=== PATIENT | male | born 1950 | race Caucasian/White ===

== ENCOUNTER 2018-07-14 16:41 | Inpatient (IN) | payer MEDICARE ==
[2018-07-14] MEDS ORDERED: SODIUM CHLORIDE 0.9% 500 ML 500 ML IV STA (16:44)
[2018-07-14] MEDS ORDERED: IPRATROPIUM 0.5 MG/2.5 ML NEBU INHALATION STA (16:44)
[2018-07-14] MEDS ORDERED: methylPREDNISolone SOD SUCCI 125 MG/2 ML VIAL IV STA (16:44)
[2018-07-14] MEDS ORDERED: ALBUTEROL NEBULIZED 2.5 MG/3 ML INHALATION STA ×2 (16:44→17:57)
--- NOTE | 2018-07-14 16:56 | ED ---
General Adult HPI - General Stated complaint: SOB Time Seen by Provider: 07/14/18 16:44 Source: patient, EMS, RN notes reviewed, old records reviewed - History of Present Illness Initial comments: 68-year-old male history of COPD presenting and moderate to severe respiratory distress. History is somewhat limited secondary to patient's respiratory distress. Patient was brought in by EMS with several hours of increasing dyspne a and cough. Patient's symptoms initially began while doing some cleaning around the house, he was exposed to unknown chemical, this seemed to trigger his symptoms. There was no preceding URI symptoms, no fever or chills. Patient does have history of COPD, not on home oxygen. Denies chest pain. Denies fever. Denies abdominal pain or nausea vomiting. - Related Data Home Medications Medication Instructions Recorded Confirmed Inhaler (Unknown) 0 puff INHALATION DIRECTED 07/14/18 07/14/18 Allergies Allergy/AdvReac Type Severity Reaction Status Date / Time No Known Allergies Allergy Verified 07/14/18 17:15 Review of Systems ROS Statement: Those systems with pertinent positive or pertinent negative responses have been documented in the HPI. ROS Other: All systems not noted in ROS Statement are negative. General Exam General appearance: in distress Head exam: Present: atraumatic, normocephalic Eye exam: Present: normal appearance, PERRL ENT exam: Present: normal exam Neck exam: Present: normal inspection. Absent: tenderness, meningismus Respiratory exam: Present: respiratory distress, wheezes, rhonchi, accessory muscle use, decreased breath sounds. Absent: prolonged expiratory Cardiovascular Exam: Present: normal rhythm, tachycardia GI/Abdominal exam: Present: soft. Absent: distended, tenderness, guarding Extremities exam: Present: normal inspection, normal capillary refill. Absent: pedal edema Neurological exam: Present: alert, oriented X3, CN II-XII intact. Absent: motor sensory deficit Skin exam: Present: warm, dry, intact. Absent: cyanosis, diaphoretic Course Vital Signs 07/14/18 07/14/18 07/14/18 16:45 17:00 17:12 Temperature 97 F L Pulse Rate 126 H 123 H 126 H Respiratory 48 H 41 H 42 H Rate Blood Pressure 163/109 144/97 136/98 O2 Sat by Pulse 98 100 100 Oximetry 03/31/19 03/31/19 03/31/19 17:29 19:11 19:12 Temperature Pulse Rate 134 H 133 H 133 H Respiratory 28 H Rate Blood Pressure 112/80 O2 Sat by Pulse 98 Oximetry 07/14/18 07/14/18 07/14/18 19:17 19:39 20:35 Temperature 98.6 F 97.7 F Pulse Rate 141 H 141 H 132 H Respiratory 34 H 32 H Rate Blood Pressure 110/71 117/77 O2 Sat by Pulse 99 98 Oximetry EKG Findings - EKG Comments: EKG Findings:: EKG: Sinus tachycardia, left ventricular hypertrophy, no ST segment elevation. Rate of 133, AK interval 128, QRS duration 92, QTC 520, QTC 350 Medical Decision Making - Medical Decision Making 68-year-old male history COPD, current smoker presenting with severe respiratory distress. Patient had exposure to fumes from [employer]. Initiated on albuterol, Atrovent, IV steroids, magnesium, placed on BiPAP. Chest x-ray obtained, negative for pneumothorax, no focal pneumonia. Patient has leukocytosis 18.4, otherwise laboratory studies are unremarkable, influenza negative. He was initiated on antibiotics secondary to respiratory distress and elevated white blood cell count. Patient remains tachycardic, oxygenation normal on BiPAP. Arterial blood gas is performed, patient has pH of 7.33, CO2 of 37, normal oxygenation. CT angiography is performed given the persistent tachycardia and tachypnea, this is negative for PE. Case discussed with primary food science technician Dr. Beckett, will place patient in ICU for close monitoring. Case discussed with the admitting physician. - Lab Data Result diagrams: 07/14/18 16:49 07/14/18 16:49 Lab Results 07/14/18 07/14/18 07/14/18 Range/Units 16:49 16:49 16:49 WBC 18.4 H (3.8-10.6) k/uL RBC 4.51 (4.30-5.90) m/uL Hgb 14.9 (13.0-17.5) gm/dL Hct 45.6 (39.0-53.0) % MCV 101.0 H (80.0-100.0) fL MCH 33.1 (25.0-35.0) pg MCHC 32.7 (31.0-37.0) g/dL RDW 13.0 (11.5-15.5) % Plt Count 335 (150-450) k/uL Neutrophils % 81 % Lymphocytes % 10 % Monocytes % 7 % Eosinophils % 1 % Basophils % 0 % Neutrophils # 14.9 H (1.3-7.7) k/uL Lymphocytes # 1.9 (1.0-4.8) k/uL Monocytes # 1.2 H (0-1.0) k/uL Eosinophils # 0.2 (0-0.7) k/uL Basophils # 0.1 (0-0.2) k/uL PT (9.0-12.0) sec INR (<1.2) APTT (22.0-30.0) sec D-Dimer (<0.60) mg/L FEU Sample Site ABG pH (7.35-7.45) ABG pCO2 (35-45) mmHg ABG pO2 (83-108) mmHg ABG HCO3 (21-25) mmol/L ABG Total CO2 (19-24) mmol/L ABG O2 Saturation (94-97) % ABG Base Excess mmol/L Ang Test FiO2 % Sodium 137 (137-145) mmol/L Potassium 4.7 (3.5-5.1) mmol/L Chloride 107 (98-107) mmol/L Carbon Dioxide 21 L (22-30) mmol/L Anion Gap 9 mmol/L BUN 15 (9-20) mg/dL Creatinine 0.75 (0.66-1.25) mg/dL Est GFR (CKD-EPI)AfAm >90 (>60 ml/min/1.73 sqM) Est GFR (CKD-EPI)NonAf >90 (>60 ml/min/1.73 sqM) Glucose 160 H (74-99) mg/dL Plasma Lactic Acid Ivan (0.7-2.0) mmol/L Calcium 8.6 (8.4-10.2) mg/dL Magnesium 2.0 (1.6-2.3) mg/dL Total Bilirubin 0.3 (0.2-1.3) mg/dL AST 26 (17-59) U/L ALT 23 (21-72) U/L Alkaline Phosphatase 92 (38-126) U/L Troponin I (0.000-0.034) ng/mL NT-Pro-B Natriuret Pep 344 pg/mL Total Protein 7.0 (6.3-8.2) g/dL Albumin 4.3 (3.5-5.0) g/dL Influenza Type A RNA (Not Detectd) Influenza Type B (PCR) (Not Detectd) 07/14/18 07/14/18 07/14/18 Range/Units 16:49 16:49 16:49 WBC (3.8-10.6) k/uL RBC (4.30-5.90) m/uL Hgb (13.0-17.5) gm/dL Hct (39.0-53.0) % MCV (80.0-100.0) fL MCH (25.0-35.0) pg MCHC (31.0-37.0) g/dL RDW (11.5-15.5) % Plt Count (150-450) k/uL Neutrophils % % Lymphocytes % % Monocytes % % Eosinophils % % Basophils % % Neutrophils # (1.3-7.7) k/uL Lymphocytes # (1.0-4.8) k/uL Monocytes # (0-1.0) k/uL Eosinophils # (0-0.7) k/uL Basophils # (0-0.2) k/uL PT 10.0 (9.0-12.0) sec INR 0.9 (<1.2) APTT 22.5 (22.0-30.0) sec D-Dimer (<0.60) mg/L FEU Sample Site ABG pH (7.35-7.45) ABG pCO2 (35-45) mmHg ABG pO2 (83-108) mmHg ABG HCO3 (21-25) mmol/L ABG Total CO2 (19-24) mmol/L ABG O2 Saturation (94-97) % ABG Base Excess mmol/L Ang Test FiO2 % Sodium (137-145) mmol/L Potassium (3.5-5.1) mmol/L Chloride (98-107) mmol/L Carbon Dioxide (22-30) mmol/L Anion Gap mmol/L BUN (9-20) mg/dL Creatinine (0.66-1.25) mg/dL Est GFR (CKD-EPI)AfAm (>60 ml/min/1.73 sqM) Est GFR (CKD-EPI)NonAf (>60 ml/min/1.73 sqM) Glucose (74-99) mg/dL Plasma Lactic Acid Ivan 1.2 (0.7-2.0) mmol/L Calcium (8.4-10.2) mg/dL Magnesium (1.6-2.3) mg/dL Total Bilirubin (0.2-1.3) mg/dL AST (17-59) U/L ALT (21-72) U/L Alkaline Phosphatase (38-126) U/L Troponin I <0.012 (0.000-0.034) ng/mL NT-Pro-B Natriuret Pep pg/mL Total Protein (6.3-8.2) g/dL Albumin (3.5-5.0) g/dL Influenza Type A RNA (Not Detectd) Influenza Type B (PCR) (Not Detectd) 07/14/18 07/14/18 07/14/18 Range/Units 16:49 17:00 18:11 WBC (3.8-10.6) k/uL RBC (4.30-5.90) m/uL Hgb (13.0-17.5) gm/dL Hct (39.0-53.0) % MCV (80.0-100.0) fL MCH (25.0-35.0) pg MCHC (31.0-37.0) g/dL RDW (11.5-15.5) % Plt Count (150-450) k/uL Neutrophils % % Lymphocytes % % Monocytes % % Eosinophils % % Basophils % % Neutrophils # (1.3-7.7) k/uL Lymphocytes # (1.0-4.8) k/uL Monocytes # (0-1.0) k/uL Eosinophils # (0-0.7) k/uL Basophils # (0-0.2) k/uL PT (9.0-12.0) sec INR (<1.2) APTT (22.0-30.0) sec D-Dimer 0.71 H (<0.60) mg/L FEU Sample Site rrad ABG pH 7.34 L (7.35-7.45) ABG pCO2 37 (35-45) mmHg ABG pO2 179 H (83-108) mmHg ABG HCO3 20 L (21-25) mmol/L ABG Total CO2 21 (19-24) mmol/L ABG O2 Saturation 99.3 H (94-97) % ABG Base Excess -5.9 mmol/L Ang Test Yes FiO2 40 % Sodium (137-145) mmol/L Potassium (3.5-5.1) mmol/L Chloride (98-107) mmol/L Carbon Dioxide (22-30) mmol/L Anion Gap mmol/L BUN (9-20) mg/dL Creatinine (0.66-1.25) mg/dL Est GFR (CKD-EPI)AfAm (>60 ml/min/1.73 sqM) Est GFR (CKD-EPI)NonAf (>60 ml/min/1.73 sqM) Glucose (74-99) mg/dL Plasma Lactic Acid Ivan (0.7-2.0) mmol/L Calcium (8.4-10.2) mg/dL Magnesium (1.6-2.3) mg/dL Total Bilirubin (0.2-1.3) mg/dL AST (17-59) U/L ALT (21-72) U/L Alkaline Phosphatase (38-126) U/L Troponin I (0.000-0.034) ng/mL NT-Pro-B Natriuret Pep pg/mL Total Protein (6.3-8.2) g/dL Albumin (3.5-5.0) g/dL Influenza Type A RNA Not Detected (Not Detectd) Influenza Type B (PCR) Not Detected (Not Detectd) Critical Care Time Critical Care Time: Yes Total Critical Care Time: 45 Disposition Clinical Impression: Acute exacerbation of chronic obstructive airways disease Disposition: ADMITTED IP TO THIS [facility] Condition: Stable Is patient prescribed a controlled substance at d/c from ED?: No Referrals: None,Stated [REFERRING] - 1-2 days Decision to Admit Reason: Admit from EC Decision Date: 07/14/18 Decision Time: 21:13
[2018-07-14] MEDS: MAGNESIUM SULFATE-D5W PMX 1 GM in DEXTROSE/WATER 1 100ML.BAG IVPB SCH ×2 (16:57→19:07)
--- NOTE | 2018-07-14 16:57 | XR ---
EXAMINATION TYPE: XR chest 1V portable DATE OF EXAM: 07/14/2018 COMPARISON: None HISTORY: Cough TECHNIQUE: Single frontal view of the chest is obtained. FINDINGS: There is mild coarsening of the pulmonary interstitial markings. There are old right-sided rib fractures. Heart size is normal. Thoracic aorta is atheromatous. There are chest leads. IMPRESSION: Mild pulmonary fibrosis. No acute lung disease. Normal heart.
[2018-07-14 17:05] LABS: Basophils # (A) 0.1 k/uL (0-0.2); Basophils % (A) 0 %; Eosinophils # (A) 0.2 k/uL (0-0.7); Eosinophils % (A) 1 %; HCT 45.6 % (39.0-53.0); HGB 14.9 gm/dL (13.0-17.5); Lymphocytes # (A) 1.9 k/uL (1.0-4.8); Lymphocytes % (A) 10 %; MCH 33.1 pg (25.0-35.0); MCHC 32.7 g/dL (31.0-37.0); Mean Platelet Volume 6.8; Monocytes # (A) 1.2 k/uL (0-1.0); Monocytes % (A) 7 %; Neutrophils # (A) 14.9 k/uL (1.3-7.7); Neutrophils % (A) 81 %; Platelet Count 335 k/uL (150-450); RBC 4.51 m/uL (4.30-5.90); WBC 18.4 k/uL (3.8-10.6)
[2018-07-14] MEDS ORDERED: AZITHROMYCIN 500 MG in SODIUM CHLORIDE 0.9% 250 ML IVPB STA (17:12)
[2018-07-14] MEDS ORDERED: cefTRIAXone IN SWFI 1,000 MG/10 ML SYRINGE IVP STA (17:12)
[2018-07-14 17:13] LABS: INR 0.9 (<1.2); Partial Thromboplastin Time 22.5 sec (22.0-30.0)
[2018-07-14 17:16] LABS: ALT 23 U/L (21-72); AST 26 U/L (17-59); Albumin 4.3 g/dL (3.5-5.0); Alkaline Phosphatase 92 U/L (38-126); Anion Gap 9 mmol/L; Blood Urea Nitrogen 15 mg/dL (9-20); Calcium 8.6 mg/dL (8.4-10.2); Carbon Dioxide 21 mmol/L (22-30); Chloride 107 mmol/L (98-107); Glucose 160 mg/dL (74-99); Potassium 4.7 mmol/L (3.5-5.1); Sodium 137 mmol/L (137-145); Total Bilirubin 0.3 mg/dL (0.2-1.3)
[2018-07-14] MEDS ORDERED: SODIUM CHLORIDE 0.9% 1,000 ML IV ONE (17:56)
[2018-07-14] MEDS ORDERED: LORazepam 2 MG/ML INJ IV STA (17:56)
[2018-07-14 18:20] LABS: ABG Base Excess -5.9 mmol/L; ABG HCO3 20 mmol/L (21-25); ABG Oxygen Saturation 99.3 % (94-97); ABG PCO2 37 mmHg (35-45); ABG PH 7.34 (7.35-7.45); ABG PO2 179 mmHg (83-108); ABG TCO2 21 mmol/L (19-24)
[2018-07-14] MEDS: SODIUM CHLORIDE 0.9% 1,000 ML IV SCH (19:00)
[2018-07-14] MEDS ORDERED: HEPARIN SODIUM,PORCINE 5,000 UNIT/ML 1 ML VIAL IV PRN (20:07)
[2018-07-14] MEDS ORDERED: HEPARIN SODIUM,PORCINE 10,000 UNIT/ML 1 ML VIAL IV ONE (20:07)
[2018-07-14] MEDS ORDERED: HEPARIN SOD,PORK IN 0.45% NACL 25,000 UNIT in 0.45% NACL 1 250ML.BAG IV SCH (20:15)
--- NOTE | 2018-07-14 20:52 | CT ---
EXAMINATION TYPE: CT angio chest DATE OF EXAM: 07/14/2018 8:42 PM COMPARISON: None HISTORY: Short of breath CT DLP: 268.5 mGycm Automated exposure control for dose reduction was used. CONTRAST: CTA scan of the thorax is performed with IV Contrast, patient injected with 100 mL of Isovue 370, pul monary embolism protocol. There are 3-D post processed images.. FINDINGS: The lungs are clear of infiltrate. There is no evidence of a pulmonary mass. There is no pleural effu zoraida. Heart size is normal. There is no pericardial effusion. There are small calcified granuloma rig ht lower lobe. Thoracic aorta is atheromatous. There is mild aneurysm of ascending aorta measures 4 cm. There is no evidence of dissection. There is no mediastinal adenopathy. There are no hilar masses. There is normal contrast opacification of the pulmonary arteries. There are no filling defect. The bony thorax is intact. IMPRESSION: NO EVIDENCE OF PULMONARY EMBOLISM. MILD ANEURYSM OF THE ASCENDING AORTA.
[2018-07-14] MEDS ORDERED: ALBUTEROL NEBULIZED 2.5 MG/3 ML INHALATION PRN (21:04)
[2018-07-14] MEDS: IPRATROPIUM-ALBUTEROL 3 ML NEB INHALATION PRN (23:18)
[2018-07-14 23:26] LABS: Glucose,Whole Blood 254 mg/dL (75-99)
[2018-07-14 23:29] VITALS: BMI 22.6
[2018-07-14] MEDS ORDERED: NALOXONE 0.4 MG/ML 1 ML VIAL IV PRN (23:52)
[2018-07-14] MEDS ORDERED: LORazepam 2 MG/ML INJ IV PRN ×3 (23:56)
[2018-07-15] MEDS: methylPREDNISolone SOD SUCCI 125 MG/2 ML VIAL IV SCH ×4 (00:13→18:47)
[2018-07-15] MEDS: INSULIN ASPART (NovoLOG) 100 UNIT/ML VIAL SQ SCH ×5 (00:13→21:07)
[2018-07-15] MEDS: IPRATROPIUM-ALBUTEROL 3 ML NEB INHALATION PRN (03:11)
[2018-07-15 04:50] LABS: Basophils % (A) 0 %; Eosinophils # (A) 0.1 k/uL (0-0.7); Eosinophils % (A) 1 %; HCT 39.2 % (39.0-53.0); HGB 12.7 gm/dL (13.0-17.5); Lymphocytes # (A) 0.3 k/uL (1.0-4.8); Lymphocytes % (A) 4 %; MCH 33.1 pg (25.0-35.0); MCHC 32.4 g/dL (31.0-37.0); MCV 102.2 fL (80.0-100.0); Macrocytosis Slight; Mean Platelet Volume 7.1; Monocytes # (A) 0.3 k/uL (0-1.0); Monocytes % (A) 4 %; Neutrophils # (A) 7.5 k/uL (1.3-7.7); Neutrophils % (A) 91 %; Platelet Count 269 k/uL (150-450); RBC 3.83 m/uL (4.30-5.90); RDW 13.2 % (11.5-15.5); WBC 8.2 k/uL (3.8-10.6)
[2018-07-15 04:58] LABS: Anion Gap 11 mmol/L; Blood Urea Nitrogen 13 mg/dL (9-20); Calcium 8.4 mg/dL (8.4-10.2); Carbon Dioxide 15 mmol/L (22-30); Chloride 110 mmol/L (98-107); Glucose 162 mg/dL (74-99); Magnesium 2.4 mg/dL (1.6-2.3); Potassium 4.7 mmol/L (3.5-5.1); Sodium 136 mmol/L (137-145)
[2018-07-15] MEDS: SODIUM CHLORIDE 0.9% 1,000 ML IV SCH ×2 (06:20→21:07)
--- NOTE | 2018-07-15 07:55 | XR ---
EXAMINATION TYPE: XR chest 1V DATE OF EXAM: 07/15/2018 CLINICAL HISTORY: Difficulty breathing progress study. TECHNIQUE: Single AP semiupright upright view of the chest is obtained. COMPARISON: Chest x-ray and CTA chest from one day earlier FINDINGS: Elevated left hemidiaphragm is redemonstrated. There is background of chronic emphysematou s change without suspicious focal airspace opacity, pleural effusion, or pneumothorax seen bilaterall y. Cardiac silhouette size is stable and within normal limits without sclerotic change in the thoraci c aorta redemonstrated. There are old posterior right rib fractures redemonstrated. IMPRESSION: Overall stable findings, chronic changes without acute pulmonary process
[2018-07-15] MEDS: IPRATROPIUM-ALBUTEROL 3 ML NEB INHALATION SCH ×4 (08:34→20:35)
[2018-07-15] MEDS ORDERED: AZITHROMYCIN 500 MG in SODIUM CHLORIDE 0.9% 250 ML IVPB SCH (09:00)
--- NOTE | 2018-07-15 09:02 | P.CNPUL ---
History of Present Illness Consult date: 07/15/18 Requesting physician: Kamran E Stan Reason for consult: dyspnea Chief complaint: Dyspnea, cough History of present illness: This is 68-year-old patient who follows with the [facility], with past medical history of advanced COPD, recent FEV1 of 51% of predicted consistent with stage III COPD, chronic and ongoing nicotine dependence, history of mitral valve stenosis, who presented to the hospital on 07/14/2018 per EMS with severe respiratory distress. Patient's symptoms began when he was exposed to the fumes from the bleach and Draino. Patient started immediately having shortness of breath, coughing. There were no symptoms of fever, chills, or upper respiratory symptoms. Patient does follow with a appliance worker from Dr. Addy Sy, not on no home oxygen, his only inhaler at home is Spiriva. Denied chest pain, denied any abdominal pain, nausea or vomiting. Chest x-ray showed no acute lung disease, mild coarsening of the pulmonary interstitial markings, old right-sided rib fractures. Labs showed a white blood cell count of 18.4, hemoglobin of 14.9, d-dimer was mildly elevated to 0.71, sodium was 137, potassium is 4.7, chloride was 107, crit CO2 is 21, BUN was 15, creatinine 0.75, plasma lactic acid was 1.2, LFTs were within normal limits, proBNP was 344, troponin was negative 1, influenza was not detected. Blood gas showed pO2 of 179, pCO2 of 37, pH of 7.34 this was done and FiO2 of 40%. CT angios chest was completed and showed no evidence of pulmonary embolism, mild aneurysm of the ascending aorta. EKG showed sinus tachycardia with evidence of left ventricular hypertrophy. he was placed on BiPAP overnight with pressures of 12 and 4, and 30%, he was given Rocephin and Zithromax for empiric antibiotic coverage, nebulized bronchodilators and IV steroids. IV 0.9 normal saline at a rate of 75 ML per hour, patient did receive a liter and half of normal saline in the emergency department. This morning she is resting comfortably in bed, off BiPAP support, 2 L of oxygen per nasal cannula with a pulse ox of 100%. Hemodynamically stable, no fever or chills, eating much easier, requesting to go home today. Review of Systems All systems: negative Constitutional: Denies chills, Denies fever Eyes: denies blurred vision, denies pain Ears, nose, mouth and throat: Denies headache, Denies sore throat Cardiovascular: Denies chest pain, Denies shortness of breath Respiratory: Reports dyspnea, Reports wheezing, Denies cough Gastrointestinal: Denies abdominal pain, Denies diarrhea, Denies nausea, Denies vomiting Musculoskeletal: Denies myalgias Integumentary: Denies pruritus, Denies rash Neurological: Denies numbness, Denies weakness Psychiatric: Denies anxiety, Denies depression Endocrine: Denies fatigue, Denies weight change Past Medical History Additional Past Medical History / Comment(s): COPD, 2 pack per day smoker for 20 years, patient drinks 6 cans of beer daily History of Any Multi-Drug Resistant Organisms: None Reported Past Surgical History: Unable to Obtain Past Psychological History: No Psychological Hx Reported Smoking Status: Current every day smoker Past Alcohol Use History: Daily, Heavy Past Drug Use History: None Reported Medications and Allergies Home Medications Medication Instructions Recorded Confirmed Type Inhaler (Unknown) 0 puff INHALATION DIRECTED 07/14/18 07/14/18 History Allergies Allergy/AdvReac Type Severity Reaction Status Date / Time No Known Allergies Allergy Verified 07/14/18 17:15 Physical Exam Vitals: Vital Signs Temp Pulse Pulse Resp BP BP Pulse Ox 07/15/18 08:45 105 H 07/15/18 08:34 102 H 07/15/18 06:19 100 07/15/18 06:00 98 17 104/74 100 07/15/18 05:30 100 12 117/69 100 07/15/18 05:00 100 19 129/82 100 07/15/18 04:30 107 H 15 96/58 100 07/15/18 04:00 98.4 F 101 H 19 94/58 100 07/15/18 03:30 97 19 98/62 100 07/15/18 03:11 96 07/15/18 03:00 100 18 100/63 100 07/15/18 02:30 103 H 20 104/58 100 07/15/18 02:00 100 16 92/58 100 07/15/18 01:30 105 H 19 94/61 99 07/15/18 01:00 109 H 21 117/67 100 07/15/18 00:30 110 H 27 H 112/74 100 07/15/18 00:00 117 H 108 H 32 H 124/78 100 07/14/18 23:47 84 07/14/18 23:30 98.3 F 111 H 31 H 120/85 100 07/14/18 23:18 111 H 07/14/18 23:10 111 H 30 H 07/14/18 22:35 98.2 F 110 H 23 113/67 100 07/14/18 22:07 98.3 F 111 H 32 H 120/85 07/14/18 21:09 128 H 26 H 112/68 99 07/14/18 20:35 97.7 F 132 H 32 H 117/77 98 07/14/18 19:39 141 H 07/14/18 19:17 98.6 F 141 H 34 H 110/71 99 07/14/18 19:12 133 H 28 H 112/80 98 07/14/18 19:11 133 H 07/14/18 17:29 134 H 07/14/18 17:12 126 H 42 H 136/98 100 07/14/18 17:00 123 H 41 H 144/97 100 07/14/18 16:45 97 F L 126 H 48 H 163/109 98 Intake and Output 07/14/18 07/15/18 07/15/18 22:59 06:59 14:59 Intake Total 600 Output Total 825 Balance -225 Intake: IV 600 Sodium Chloride 0.9% 1, 600 000 ml @ 75 mls/hr IV . [id number] [facility] Rx#:[id number] Output: Urine 825 Other: Weight 68.039 kg 68.9 kg GENERAL EXAM: Alert, pleasant, 68-year-old white male, comfortable in no apparent distress. HEAD: Normocephalic/atraumatic. EYES: Normal reaction of pupils, equal size. Conjunctiva pink, sclera white. NOSE: Clear with pink turbinates. THROAT: No erythema or exudates. NECK: No masses, no JVD, no thyroid enlargement, no adenopathy. CHEST: No chest wall deformity. Symmetrical expansion. LUNGS: Diminished breath sounds bilaterally, with end expiratory wheezes CVS: Regular rate and rhythm, normal S1 and S2, no gallops, no murmurs, no rubs ABDOMEN: Soft, nontender. No hepatosplenomegaly, normal bowel sounds, no guarding or rigidity. EXTREMITIES: No clubbing, no edema, no cyanosis, 2+ pulses and upper and lower extremities. MUSCULOSKELETAL: Muscle strength and tone normal. SPINE: No scoliosis or deformity SKIN: No rashes CENTRAL NERVOUS SYSTEM: Alert and oriented -3. No focal deficits, tone is normal in all 4 extremities. PSYCHIATRIC: Alert and oriented -3. Appropriate affect. Intact judgment and insight. Results - Laboratory Findings CBC and BMP: 07/15/18 04:18 07/15/18 04:18 ABG ABG pH 7.34 (7.35-7.45) L 07/14/18 18:11 ABG pCO2 37 mmHg (35-45) 07/14/18 18:11 ABG pO2 179 mmHg (83-108) H 07/14/18 18:11 ABG O2 Saturation 99.3 % (94-97) H 07/14/18 18:11 PT/INR, D-dimer PT 10.0 sec (9.0-12.0) 07/14/18 16:49 INR 0.9 (<1.2) 07/14/18 16:49 D-Dimer 0.71 mg/L FEU (<0.60) H 07/14/18 16:49 Abnormal lab findings: Abnormal Labs 07/14/18 07/14/18 07/14/18 16:49 16:49 16:49 WBC 18.4 H RBC Hgb MCV 101.0 H Neutrophils # 14.9 H Lymphocytes # Monocytes # 1.2 H D-Dimer 0.71 H ABG pH ABG pO2 ABG HCO3 ABG O2 Saturation Sodium Chloride Carbon Dioxide 21 L Glucose 160 H POC Glucose (mg/dL) Magnesium 07/14/18 07/14/18 07/15/18 18:11 23:11 04:18 WBC RBC 3.83 L Hgb 12.7 L MCV 102.2 H Neutrophils # Lymphocytes # 0.3 L Monocytes # D-Dimer ABG pH 7.34 L ABG pO2 179 H ABG HCO3 20 L ABG O2 Saturation 99.3 H Sodium Chloride Carbon Dioxide Glucose POC Glucose (mg/dL) 254 H Magnesium 07/15/18 04:18 WBC RBC Hgb MCV Neutrophils # Lymphocytes # Monocytes # D-Dimer ABG pH ABG pO2 ABG HCO3 ABG O2 Saturation Sodium 136 L Chloride 110 H Carbon Dioxide 15 L Glucose 162 H POC Glucose (mg/dL) Magnesium 2.4 H - Diagnostic Findings Chest x-ray: report reviewed, image reviewed CT scan - chest: report reviewed, image reviewed Additional studies: EKG reviewed Assessment and Plan Plan: Assessment #1. Acute exacerbation of chronic obstructive pulmonary disease, triggered by exposure to fumes from the bleach and Draino #2. Stage III COPD, with a baseline FEV1 of 51% of predicted, not on home oxygen #3. Nicotine ongoing nicotine dependence, 1-2 packs a day, for around 25 years #4. Daily EtOH use, 68 beers a day, last drink on 07/14/2018 #5. History of mitral valve stenosis related to history of rheumatic fever, follows with a gamma facilities operator in [place] Plan: Continue nebulized bronchodilators, IV steroids, and probably discontinue the antibiotics, monitor for EtOH withdrawal symptoms, patient is stable to go out of the intensive care unit, CTA chest and chest x-rays have been reviewed with Dr. Souza, no acute pulmonary process. Patient is doing much better, breathing easier, IPAP support as needed, I performed a history & physical examination of the patient and discussed their management with my nurse practitioner, Annette Galindo. I reviewed the nurse practitioner's note and agree with the documented findings and plan of care. Lung sounds are positive for diminished breath sounds with end expiratory wheezing. The findings and the impression was discussed with the patient. I attest to the documentation by the nurse practitioner. Time with Patient: Greater than 30
[2018-07-15] MEDS: NICOTINE 21MG/24HR PATCH TRANSDERM SCH (09:15)
[2018-07-15 09:33] LABS: Glucose,Whole Blood 284 mg/dL (75-99)
[2018-07-15 11:59] LABS: Glucose,Whole Blood 181 mg/dL (75-99)
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
[2018-07-15 17:05] LABS: Glucose,Whole Blood 169 mg/dL (75-99)
[2018-07-15] MEDS: SYMBICORT 160-4.5 MCG INHALER INHALATION SCH (20:35)
[2018-07-15 23:11] LABS: Glucose,Whole Blood 238 mg/dL (75-99)
[2018-07-16] MEDS: methylPREDNISolone SOD SUCCI 125 MG/2 ML VIAL IV SCH ×2 (00:12→07:09)
[2018-07-16 05:08] LABS: Basophils % (A) 0 %; Eosinophils # (A) 0.2 k/uL (0-0.7); Eosinophils % (A) 1 %; HCT 41.8 % (39.0-53.0); HGB 13.9 gm/dL (13.0-17.5); Lymphocytes # (A) 0.4 k/uL (1.0-4.8); Lymphocytes % (A) 2 %; MCHC 33.3 g/dL (31.0-37.0); Macrocytosis Slight; Mean Platelet Volume 7.1; Monocytes # (A) 0.9 k/uL (0-1.0); Monocytes % (A) 4 %; Neutrophils # (A) 22.1 k/uL (1.3-7.7); Neutrophils % (A) 93 %; Platelet Count 282 k/uL (150-450); RBC 4.09 m/uL (4.30-5.90); RDW 13.3 % (11.5-15.5); WBC 23.7 k/uL (3.8-10.6)
[2018-07-16 05:15] LABS: Anion Gap 6 mmol/L; Blood Urea Nitrogen 16 mg/dL (9-20); Calcium 8.8 mg/dL (8.4-10.2); Carbon Dioxide 22 mmol/L (22-30); Chloride 106 mmol/L (98-107); Glucose 135 mg/dL (74-99); Potassium 4.4 mmol/L (3.5-5.1); Sodium 134 mmol/L (137-145)
[2018-07-16] MEDS: IPRATROPIUM-ALBUTEROL 3 ML NEB INHALATION SCH ×2 (06:48→12:04)
[2018-07-16] MEDS: SYMBICORT 160-4.5 MCG INHALER INHALATION SCH (06:48)
[2018-07-16 06:53] LABS: Glucose,Whole Blood 158 mg/dL (75-99)
[2018-07-16] MEDS: INSULIN ASPART (NovoLOG) 100 UNIT/ML VIAL SQ SCH ×2 (07:09→12:48)
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
[2018-07-16 09:16] VITALS: BP 122/88; RESP 28; TEMP 98
[2018-07-16] MEDS: NICOTINE 21MG/24HR PATCH TRANSDERM SCH (09:23)
[2018-07-16] MEDS: SODIUM CHLORIDE 0.9% 1,000 ML IV SCH (09:24)
[2018-07-16] MEDS ORDERED: predniSONE 20 MG TAB PO SCH (11:00)
[2018-07-16 12:31] VITALS: PULSE 92
== END 2018-07-16 13:14 | disposition home or self-care (01) | DRG 192 ==
LOC: EC 16:41 → 2SICU 21:03
PROVIDERS: ADMIT Internal Medicine; ATTEND Internal Medicine
PROC: 5A09357 Assistance with Respiratory Ventilation, Less than 24 Consecutive Hours, Continuous Positive Airway Pressure (ICD-10-PCS; principal; 2018-07-14)
DX: J44.1 Chronic obstructive pulmonary disease with (acute) exacerbation (principal); F10.10 Alcohol abuse, uncomplicated; F17.210 Nicotine dependence, cigarettes, uncomplicated; I05.0 Rheumatic mitral stenosis; I71.2 Thoracic aortic aneurysm, without rupture; D72.829 Elevated white blood cell count, unspecified; T38.0X5A Adverse effect of glucocorticoids and synthetic analogues, initial encounter; R06.03 Acute respiratory distress; R51 Headache; Z77.098 Contact with and (suspected) exposure to other hazardous, chiefly nonmedicinal, chemicals
CPT/HCPCS: 36415; 36600; 71045; 71275; 80048; 80053; 82805; 83605; 83735; 83880; 84100; 84484; 85025; 85379; 85610; 85730; 87040; 87502; 93005; 94640; 94660; 96361; 96365; 96366; 96367; 96375; 99291

== ENCOUNTER 2021-03-09 06:32 | Inpatient (IN) | payer MEDICARE ==
[2021-03-09] MEDS ORDERED: methylPREDNISolone SOD SUCCI 125 MG/2 ML VIAL IV STA (06:42)
[2021-03-09] MEDS ORDERED: SODIUM CHLORIDE 0.9% 500 ML 500 ML IV STA (06:42)
--- NOTE | 2021-03-09 06:50 | ED ---
General Adult HPI - General Stated complaint: Respiratory Distress Time Seen by Provider: 03/09/21 06:32 Source: patient, EMS, RN notes reviewed Mode of arrival: EMS Limitations: no limitations - History of Present Illness Initial comments: This a 70-year-old male presents emergency Department from [facility] with chief complaint of respiratory distress, dyspnea. Patient states that he felt well yesterday he was recently discharged from [facility] for approximately respirator distress. Patient is a long-time smoker, history of COPD oxygen dependent. Patient oxygen reportedly showed off last night. The unsure when his this happened. Patient woke up and distress. Patient has no collected chest pain no fevers or chills. Patient denies any abdominal pain. Patient had no increasing leg swelling no history of CHF. - Related Data Home Medications Medication Instructions Recorded Confirmed Apixaban [Eliquis] 5 mg PO BID@0800,199903/09/21 03/09/21 Aspirin 81 mg PO DAILY@0800 03/09/21 03/09/21 Docusate [Colace] 100 mg PO BID@0800,199903/09/21 03/09/21 Metoprolol Tartrate [Lopressor] 25 mg PO BID@0800,199903/09/21 03/09/21 Tiotropium 2.5 Mcg/Puff [Spiriva 2 puff INHALATION RT-DAILY@0800 03/09/21 03/09/21 Respimat 2.5 Mcg] predniSONE 50 mg PO DAILY 03/09/21 03/09/21 Allergies Allergy/AdvReac Type Severity Reaction Status Date / Time No Known Allergies Allergy Verified 03/09/21 08:25 Review of Systems ROS Statement: Those systems with pertinent positive or pertinent negative responses have been documented in the HPI. ROS Other: All systems not noted in ROS Statement are negative. Past Medical History Additional Past Medical History / Comment(s): COPD, 2 pack per day smoker for 20 years, patient drinks 6 cans of beer daily History of Any Multi-Drug Resistant Organisms: None Reported Past Surgical History: Unable to Obtain Past Psychological History: No Psychological Hx Reported Past Alcohol Use History: Daily, Heavy Past Drug Use History: None Reported General Exam Limitations: no limitations General appearance: alert, in distress Head exam: Present: atraumatic, normocephalic, normal inspection Eye exam: Present: normal appearance, PERRL, EOMI. Absent: scleral icterus, conjunctival injection, periorbital swelling ENT exam: Present: normal exam, mucous membranes moist Neck exam: Present: normal inspection, full ROM. Absent: tenderness, meningismus, lymphadenopathy Respiratory exam: Present: respiratory distress, wheezes. Absent: normal lung sounds bilaterally, rales, rhonchi, stridor Cardiovascular Exam: Present: regular rate, normal rhythm, normal heart sounds. Absent: systolic murmur, diastolic murmur, rubs, gallop, clicks GI/Abdominal exam: Present: soft, normal bowel sounds. Absent: distended, tenderness, guarding, rebound, rigid Neurological exam: Present: alert, oriented X3 Skin exam: Present: warm, dry, intact, normal color. Absent: rash Course Vital Signs 03/09/21 03/09/21 03/09/21 06:34 06:52 08:08 Pulse Rate 112 H 111 H 108 H Respiratory 18 18 18 Rate Blood Pressure 122/74 94/65 94/59 O2 Sat by Pulse 97 96 100 Oximetry Medical Decision Making - Medical Decision Making 70-year-old presented for respiratory distress. Patient be placed placed on BiPAP, chest x-ray shows fluid overload possible atypical pneumonia. Patient does haven't noted 19,000 white count was given Rocephin possibility of infection, patient's BNP is elevated 15,400 Lasix was ordered 40 mg. Patient's troponin is mildly elevated will be trended. Patient will be kept on BiPAP with cardiac consult, medicine case discussed with Dr. bautista - Lab Data Result diagrams: 03/09/21 07:04 03/09/21 07:04 Lab Results 03/09/21 03/09/21 03/09/21 Range/Units 07:04 07:04 07:04 WBC 19.2 H (3.8-10.6) k/uL RBC 3.35 L (4.30-5.90) m/uL Hgb 11.2 L (13.0-17.5) gm/dL Hct 33.1 L (39.0-53.0) % MCV 98.7 (80.0-100.0) fL MCH 33.5 (25.0-35.0) pg MCHC 34.0 (31.0-37.0) g/dL RDW 16.2 H (11.5-15.5) % Plt Count 492 H (150-450) k/uL MPV 8.0 Anisocytosis Slight Macrocytosis Slight PT 10.2 (9.0-12.0) sec INR 0.9 (<1.2) APTT 20.2 L (22.0-30.0) sec Sodium 128 L (137-145) mmol/L Potassium 4.2 (3.5-5.1) mmol/L Chloride 100 (98-107) mmol/L Carbon Dioxide 18 L (22-30) mmol/L Anion Gap 10 mmol/L BUN 18 (9-20) mg/dL Creatinine 0.84 (0.66-1.25) mg/dL Est GFR (CKD-EPI)AfAm >90 (>60 ml/min/1.73 sqM) Est GFR (CKD-EPI)NonAf 88 (>60 ml/min/1.73 sqM) Glucose 240 H (74-99) mg/dL Plasma Lactic Acid Ivan (0.7-2.0) mmol/L Calcium 8.1 L (8.4-10.2) mg/dL Magnesium 1.8 (1.6-2.3) mg/dL Total Bilirubin 0.5 (0.2-1.3) mg/dL AST 60 H (17-59) U/L ALT 32 (4-49) U/L Alkaline Phosphatase 88 (38-126) U/L Troponin I (0.000-0.034) ng/mL NT-Pro-B Natriuret Pep pg/mL Total Protein 5.4 L (6.3-8.2) g/dL Albumin 2.8 L (3.5-5.0) g/dL 03/09/21 03/09/21 03/09/21 Range/Units 07:04 07:04 07:04 WBC (3.8-10.6) k/uL RBC (4.30-5.90) m/uL Hgb (13.0-17.5) gm/dL Hct (39.0-53.0) % MCV (80.0-100.0) fL MCH (25.0-35.0) pg MCHC (31.0-37.0) g/dL RDW (11.5-15.5) % Plt Count (150-450) k/uL MPV Anisocytosis Macrocytosis PT (9.0-12.0) sec INR (<1.2) APTT (22.0-30.0) sec Sodium (137-145) mmol/L Potassium (3.5-5.1) mmol/L Chloride (98-107) mmol/L Carbon Dioxide (22-30) mmol/L Anion Gap mmol/L BUN (9-20) mg/dL Creatinine (0.66-1.25) mg/dL Est GFR (CKD-EPI)AfAm (>60 ml/min/1.73 sqM) Est GFR (CKD-EPI)NonAf (>60 ml/min/1.73 sqM) Glucose (74-99) mg/dL Plasma Lactic Acid Ivan 3.0 H* (0.7-2.0) mmol/L Calcium (8.4-10.2) mg/dL Magnesium (1.6-2.3) mg/dL Total Bilirubin (0.2-1.3) mg/dL AST (17-59) U/L ALT (4-49) U/L Alkaline Phosphatase (38-126) U/L Troponin I 0.048 H* (0.000-0.034) ng/mL NT-Pro-B Natriuret Pep 73278 pg/mL Total Protein (6.3-8.2) g/dL Albumin (3.5-5.0) g/dL Disposition Clinical Impression: Acute exacerbation of chronic obstructive airways disease, Congestive heart failure, Respiratory failure Disposition: ADMITTED IP TO THIS HOSP Condition: Serious Referrals: [facility],Clinic [Primary Care Provider] - 1-2 days
--- NOTE | 2021-03-09 07:39 | XR ---
EXAMINATION TYPE: XR chest 1V DATE OF EXAM: 03/09/2021 COMPARISON: Chest x-ray July 15, 2018 HISTORY: Difficulty in breathing. TECHNIQUE: Single AP portable frontal upright view of the chest is obtained. FINDINGS: The cardiac silhouette size is stable and upper limits of normal with atherosclerotic aort a. Reticular increased markings bilaterally. Small bilateral pleural effusion suspected. The osseou s structures are demineralized. Old fracture deformity of the posterior lateral right fifth and sixth ribs redemonstrated. IMPRESSION: Correlate for fluid overload state or CHF exacerbation as there are suspected small bila teral pleural effusions with moderate interstitial edema. Bilateral atypical infiltrates not excluded .
[2021-03-09 07:46] LABS: INR 0.9 (<1.2); Prothrombin Time 10.2 sec (9.0-12.0)
[2021-03-09 07:59] LABS: ALT 32 U/L (4-49); AST 60 U/L (17-59); African American GFR (CKD) >90 (>60 ml/min/1.73 sqM); Albumin 2.8 g/dL (3.5-5.0); Alkaline Phosphatase 88 U/L (38-126); Anion Gap 10 mmol/L; Blood Urea Nitrogen 18 mg/dL (9-20); Calcium 8.1 mg/dL (8.4-10.2); Carbon Dioxide 18 mmol/L (22-30); Chloride 100 mmol/L (98-107); Glucose 240 mg/dL (74-99); Magnesium 1.8 mg/dL (1.6-2.3); Non-African American GFR(CKD) 88 (>60 ml/min/1.73 sqM); Potassium 4.2 mmol/L (3.5-5.1); Sodium 128 mmol/L (137-145); Total Bilirubin 0.5 mg/dL (0.2-1.3); Total Protein 5.4 g/dL (6.3-8.2)
[2021-03-09 08:03] LABS: Anisocytosis Slight; HCT 33.1 % (39.0-53.0); HGB 11.2 gm/dL (13.0-17.5); MCH 33.5 pg (25.0-35.0); MCV 98.7 fL (80.0-100.0); Macrocytosis Slight; Platelet Count 492 k/uL (150-450); RBC 3.35 m/uL (4.30-5.90); RDW 16.2 % (11.5-15.5); WBC 19.2 k/uL (3.8-10.6)
[2021-03-09 08:05] LABS: Partial Thromboplastin Time 20.2 sec (22.0-30.0)
[2021-03-09] MEDS ORDERED: cefTRIAXone IN SWFI 1,000 MG/10 ML SYRINGE IVP STA (08:59)
[2021-03-09] MEDS ORDERED: FUROSEMIDE 10 MG/ML 4 ML VIAL IV STA (08:59)
[2021-03-09] MEDS ORDERED: ASPIRIN 325 MG TAB PO STA (09:14)
[2021-03-09 09:24] LABS: Eosinophils # (M) 0.38 k/uL (0-0.7); Lymphocytes # (M) 1.73 k/uL (1.0-4.8); Monocytes # (M) 0.77 k/uL (0-1.0); Myelocytes # (M) 0.58 k/uL (0); Myelocytes % 3 %; Neutrophils # (M) 16.13 k/uL (1.3-7.7); Neutrophils % (M) 84 %; Nucleated Red Blood Cells 0 /100 WBC (0-0); Total Cells Counted 200
--- NOTE | 2021-03-09 11:53 | P.HPIM ---
History of Present Illness 70-year-old male came in from [facility] with complains of shortness of breath and patient was hypoxic his oxygen ran out. Patient initially told me he doesn't use oxygen but the patient apparently uses oxygen at custodial he doesn't know how much oxygen does he uses. Patient does have history of COPD continues to smoke anywhere between 2-20 cigarettes a day. Patient did not give any clear history of orthopnea or paroxysmal nocturnal dyspnea. Patient does have some cough, no fever does have leukocytosis, hyponatremic bit tachycardic presently on 6 L of oxygen. Patient had a chest x-ray, and I'm unable to review the imag es by myself but as per the report patient has a lateral infiltrates consistent with CHF and elevated BNP of around 15,000 patient clinically doesn't have any pedal edema doesn't have any elevated JVD. X REVIEW OF SYSTEMS: CONSTITUTIONAL: No fever, no malaise, no fatigue. HEENT: No recent visual problems or hearing problems. Denied any sore throat. CARDIOVASCULAR: No chest pain, orthopnea, PND, no palpitations, no syncope. PULMONARY: As mentioned in HPI \GASTROINTESTINAL: No diarrhea, no nausea, no vomiting, no abdominal pain. NEUROLOGICAL: No headaches, no weakness, no numbness. HEMATOLOGICAL: Denies any bleeding or petechiae. GENITOURINARY: Denies any burning micturition, frequency, or urgency. MUSCULOSKELETAL/RHEUMATOLOGICAL: Denies any joint pain, swelling, or any muscle pain. ENDOCRINE: Denies any polyuria or polydipsia. The rest of the 14-point review of systems is negative. PHYSICAL EXAMINATION: GENERAL: The patient is alert and oriented x3, not in any acute distress. Well developed, well nourished. HEENT: Pupils are round and equally reacting to light. EOMI. No scleral icterus. No conjunctival pallor. Normocephalic, atraumatic. No pharyngeal erythema. No thyromegaly. CARDIOVASCULAR: S1 and S2 present. No murmurs, rubs, or gallops. PULMONARY: Chest is clear to auscultation, no wheezing or crackles. ABDOMEN: Soft, nontender, nondistended, normoactive bowel sounds. No palpable organomegaly. MUSCULOSKELETAL: No joint swelling or deformity. EXTREMITIES: No cyanosis, clubbing, or pedal edema. NEUROLOGICAL: Gross neurological examination did not reveal any focal deficits. SKIN: No rashes. Assessment and plan -Shortness of breath, acute hypoxic respiratory failure: Most probably secondary to congestive heart failure. Ejection fraction is unknown at this time I do not see any echocardiogram from the past echocardiogram was ordered new cardiology was consulted patient was started on 40 mg of IV Lasix. -Leukocytosis reactive clinically patient doesn't appear to have any pneumonia -COPD without any acute exacerbation and chronic hypoxic and hypercapnic respiratory failure secondary to COPD -Mildly elevated troponin probably secondary to congestive heart failure -Hypervolemic hyponatremia expected to improve with IV Lasix -Continue nicotine use: Counseling was provided DVT prophylaxis: Patient presently has sinus tachycardia unsure why patient is on Eliquis which is being continued for now. Past Medical History Additional Past Medical History / Comment(s): COPD, 2 pack per day smoker for 20 years, patient drinks 6 cans of beer daily History of Any Multi-Drug Resistant Organisms: None Reported Past Surgical History: Unable to Obtain Additional Past Surgical History / Comment(s): Hernia Past Psychological History: No Psychological Hx Reported Past Alcohol Use History: Daily, Heavy Past Drug Use History: None Reported Medications and Allergies Home Medications Medication Instructions Recorded Confirmed Type Apixaban [Eliquis] 5 mg PO BID@0800,199903/09/21 03/09/21 History Aspirin 81 mg PO DAILY@0800 03/09/21 03/09/21 History Docusate [Colace] 100 mg PO BID@0800,199903/09/21 03/09/21 History Metoprolol Tartrate [Lopressor] 25 mg PO BID@0800,199903/09/21 03/09/21 History Tiotropium 2.5 Mcg/Puff [Spiriva 2 puff INHALATION RT-DAILY@0800 03/09/21 03/09/21 History Respimat 2.5 Mcg] predniSONE 50 mg PO DAILY 03/09/21 03/09/21 History Allergies Allergy/AdvReac Type Severity Reaction Status Date / Time No Known Allergies Allergy Verified 03/09/21 08:25 Physical Exam Vitals: Vital Signs Pulse Resp BP Pulse Ox 03/09/21 11:39 105 H 18 118/72 93 L 03/09/21 10:35 97 03/09/21 08:08 108 H 18 94/59 100 03/09/21 06:52 111 H 18 94/65 96 03/09/21 06:34 112 H 18 122/74 97 Intake and Output 03/08/21 03/09/21 03/09/21 22:59 06:59 14:59 Other: Weight 81.647 kg Results CBC & Chem 7: 03/09/21 07:04 03/09/21 07:04 Labs: Abnormal Lab Results - Last 24 Hours (Table) 03/09/21 03/09/21 03/09/21 Range/Units 07:04 07:04 07:04 WBC 19.2 H (3.8-10.6) k/uL RBC 3.35 L (4.30-5.90) m/uL Hgb 11.2 L (13.0-17.5) gm/dL Hct 33.1 L (39.0-53.0) % RDW 16.2 H (11.5-15.5) % Plt Count 492 H (150-450) k/uL Neutrophils # (Manual) 16.13 H (1.3-7.7) k/uL Myelocytes # (Manual) 0.58 H (0) k/uL APTT 20.2 L (22.0-30.0) sec Sodium 128 L (137-145) mmol/L Carbon Dioxide 18 L (22-30) mmol/L Glucose 240 H (74-99) mg/dL Plasma Lactic Acid Ivan (0.7-2.0) mmol/L Calcium 8.1 L (8.4-10.2) mg/dL AST 60 H (17-59) U/L Troponin I (0.000-0.034) ng/mL Total Protein 5.4 L (6.3-8.2) g/dL Albumin 2.8 L (3.5-5.0) g/dL 03/09/21 03/09/21 Range/Units 07:04 07:04 WBC (3.8-10.6) k/uL RBC (4.30-5.90) m/uL Hgb (13.0-17.5) gm/dL Hct (39.0-53.0) % RDW (11.5-15.5) % Plt Count (150-450) k/uL Neutrophils # (Manual) (1.3-7.7) k/uL Myelocytes # (Manual) (0) k/uL APTT (22.0-30.0) sec Sodium (137-145) mmol/L Carbon Dioxide (22-30) mmol/L Glucose (74-99) mg/dL Plasma Lactic Acid Ivan 3.0 H* (0.7-2.0) mmol/L Calcium (8.4-10.2) mg/dL AST (17-59) U/L Troponin I 0.048 H* (0.000-0.034) ng/mL Total Protein (6.3-8.2) g/dL Albumin (3.5-5.0) g/dL
--- NOTE | 2021-03-09 11:55 | ECHOF ---
Referral Reason:LV function MEASUREMENTS -------- HEIGHT: 180.3 cm WEIGHT: 81.6 kg BP: IVSd: 1.0 cm (0.6 - 1.1) LVIDd: 3.5 cm (3.9 - 5.3) LVPWd: 1.0 cm (0.6 - 1.1) IVSs: 1.5 cm LVIDs: 2.2 cm LVPWs: 1.4 cm LAESV Index (A-L): 23.36 ml/m Ao Diam: 3.2 cm (2.0 - 3.7) AV Cusp: 1.3 cm (1.5 - 2.6) LA Diam: 3.2 cm (2.7 - 3.8) MV E Agusto: 1.24 m/s MV DecT: 158 ms MV A Agusto: 0.31 m/s MV E/A Ratio: 3.99 AV maxP.79 mmHg AV meanP.97 mmHg AR PHT: 524 ms RAP: 5.00 mmHg RVSP: 9.42 mmHg FINDINGS -------- Resting tachycardia (HR>100bpm). This was a technically adequate study. The left ventricular size is normal. Left ventricular wall thickness is normal. Overall left vent ricular systolic function is low-normal with, an EF between 50 - 55 %. Normal LAP Grade 1 Diastolic Dysfunction. The right ventricle is normal in size. The left atrial size is normal. Normal LA size by volume 22+/-6 ml/m2. The right atrial size is normal. Aortic valve is trileaflet and is severely thickened. There is mild aortic regurgitation. There i s severe aortic stenosis present. Peak/mean gradient across the Aortic Valve is 64.79mmHg / 43.97mm Hg. Vmax 4.14 m/s. The mitral valve is normal. The mitral valve leaflets are mildly thickened. Mild mitral regurgita tion is present. The tricuspid valve appears structurally normal. Mild tricuspid regurgitation present. Right vent ricular systolic pressure is normal at < 35 mmHg. There is no pulmonic regurgitation present. The aortic root size is normal. IVC Not well visulized. There is no pericardial effusion. CONCLUSIONS -------- 1. The left ventricular size is normal. 2. Left ventricular wall thickness is normal. 3. Overall left ventricular systolic function is low-normal with, an EF between 50 - 55 %. 4. Normal LAP Grade 1 Diastolic Dysfunction. 5. Aortic valve is trileaflet and is severely thickened. 6. There is mild aortic regurgitation. 7. There is severe aortic stenosis present. 8. Peak/mean gradient across the Aortic Valve is 64.79mmHg / 43.97mmHg. 9. The mitral valve leaflets are mildly thickened. 10. Mild mitral regurgitation is present. 11. Mild tricuspid regurgitation present. 12. There is no pericardial effusion. OUTSIDE SALES ENGINEER: Jessica Zuñiga RDCS
--- NOTE | 2021-03-09 12:06 | P.CRDCN ---
History of Present Illness History of present illness: HISTORY OF PRESENTING ILLNESS This is a pleasant 70-year-old male past medical history significant for COPD, unclear if patient has history of atrial fibrillation, he is on Eliquis, however does not know why, daily alcohol use, former smoker. 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 We have been asked to see in consultation for congestive heart failure . Patient presents to the emergency department with complaints of shortness of breath and hypoxia. Patient is from a group home and states that his oxygen machine stopped working. He woke up at night very short of breath, found to have low oxygen saturations in the 70s%. He was brought to the emergency department. Patient seen at bedside, he denies any symptoms of chest pain, palpitations, lightheadedness, dizziness. He is unaware why he is on Eliquis, he states when "he left the hospital once they put him on it". Per Chart review, patient has a history of mitral valve stenosis and did see a steeping press operator in [place]. Unknown ejection fraction at this time. DIAGNOSTICS EKG reveals sinus tachycardia, heart rate 112, LVH, no significant ST-T wave abnormalities. Prior EKG in 2009 with similar findings Telemetry tracings indicate sinus tachycardia, heart rate 100-115. Chest xray correlate for fluid overload or CHF exacerbation. Small bilateral pleural effusions with moderate interstitial edema. Laboratory reviewed, WBC 19.2, hemoglobin 11.2, platelets 492, sodium 128, potassium 4.2, BUN 18, serum creatinine 0.8, lactate 2.0, repeat 1.9, magnesium 1.8, troponin 0.04, proBNP 15,400, TSH within normal limits, COVID-19 PCR negative Current home medications include aspirin 80 mg daily, Eliquis 5 mg twice a day, Toprol tartrate 25 mg twice a day, prednisone, Spiriva REVIEW OF SYSTEMS At the time of my exam: CONSTITUTIONAL: Denies fever or chills. CARDIOVASCULAR: +shortness of breath Denies chest pain, orthopnea, PND or palpitations. RESPIRATORY: Denies cough. GASTROINTESTINAL: Denies abdominal pain, diarrhea, constipation, nausea or vomiting. MUSCULOSKELETAL: Denies myalgias. NEUROLOGIC: Denies numbness, tingling, headacbe or weakness. ENDOCRINE: Denies fatigue, weight change, polydipsia or polyurina. GENITOURINARY: Denies burning, hematuria or urgency with micturation. HEMATOLOGIC: Denies history of anemia or bleeding. PHYSICAL EXAMINATION Blood pressure 118/72, heart rate 105, oxygen saturations greater than 92% on 6 L nasal cannula CONSTITUTIONAL: No apparent distress. HEENT: Head is normocephalic. Pupils are equal, round. Sclerae anicteric. Mucous membranes of the mouth are moist. No JVD. No carotid bruit. CHEST EXAMINATION: Lungs crackles bilaterally to auscultation. No chest wall tenderness is noted on palpation or with deep breathing. HEART EXAMINATION: Regular tachycardic rate and rhythm. S1, S2 heard. No murmurs, gallops or rub. ABDOMEN: Soft, nontender. Positive bowel sounds. EXTREMITIES: 2+ peripheral pulses, no lower extremity edema and no calf tenderness. NEUROLOGIC EXAMINATION: Patient is awake, alert and oriented x3. ASSESSMENT Shortness of breath, hypoxia, possibly secondary to congestive heart failure. No known ejection fraction at this time. Echocardiogram pending COPD Elevated troponin, likely supply and demand mismatch type 2 WI Leukocytosis Hyponatremia Leukocytosis PLAN Obtain 2D echocardiogram Continue IV Lasix 40mg BID Unclear if patient has a history of atrial fibrillation, he does not know why he is on Eliquis, we will continue this for now Continue metoprolol tartrate 25mg BID Monitor renal function and electrolytes I/Os, daily weights Further recommendations based on clinical course Nurse Practitioner note has been reviewed, I agree with a documented findings and plan of care. Patient was seen and examined. Past Medical History Additional Past Medical History / Comment(s): COPD, 2 pack per day smoker for 20 years, patient drinks 6 cans of beer daily History of Any Multi-Drug Resistant Organisms: None Reported Past Surgical History: Unable to Obtain Additional Past Surgical History / Comment(s): Hernia Past Psychological History: No Psychological Hx Reported Past Alcohol Use History: Daily, Heavy Past Drug Use History: None Reported Medications and Allergies Home Medications Medication Instructions Recorded Confirmed Type Apixaban [Eliquis] 5 mg PO BID@0800,199903/09/21 03/09/21 History Aspirin 81 mg PO DAILY@0800 03/09/21 03/09/21 History Docusate [Colace] 100 mg PO BID@08,199903/09/21 03/09/21 History Metoprolol Tartrate [Lopressor] 25 mg PO BID@08,2000 02/24/21 11/24/21 History Tiotropium 2.5 Mcg/Puff [Spiriva 2 puff INHALATION RT-DAILY@79903/09/21 03/09/21 History Respimat 2.5 Mcg] predniSONE 50 mg PO DAILY 03/09/21 03/09/21 History Allergies Allergy/AdvReac Type Severity Reaction Status Date / Time No Known Allergies Allergy Verified 03/09/21 08:25 Physical Exam Vitals: Vital Signs Pulse Resp BP Pulse Ox 03/09/21 08:08 108 H 18 94/59 100 03/09/21 06:52 111 H 18 94/65 96 03/09/21 06:34 112 H 18 122/74 97 Intake and Output 03/08/21 03/09/21 03/09/21 22:59 06:59 14:59 Other: Weight 81.647 kg Results 03/09/21 07:04 03/09/21 07:04 Cardiac Enzymes 03/09/21 03/09/21 Range/Units 07:04 07:04 AST 60 H (17-59) U/L Troponin I 0.048 H* (0.000-0.034) ng/mL Coagulation 03/09/21 Range/Units 07:04 PT 10.2 (9.0-12.0) sec APTT 20.2 L (22.0-30.0) sec CBC 03/09/21 Range/Units 07:04 WBC 19.2 H (3.8-10.6) k/uL RBC 3.35 L (4.30-5.90) m/uL Hgb 11.2 L (13.0-17.5) gm/dL Hct 33.1 L (39.0-53.0) % Plt Count 492 H (150-450) k/uL Comprehensive Metabolic Panel 03/09/21 Range/Units 07:04 Sodium 128 L (137-145) mmol/L Potassium 4.2 (3.5-5.1) mmol/L Chloride 100 (98-107) mmol/L Carbon Dioxide 18 L (22-30) mmol/L BUN 18 (9-20) mg/dL Creatinine 0.84 (0.66-1.25) mg/dL Glucose 240 H (74-99) mg/dL Calcium 8.1 L (8.4-10.2) mg/dL AST 60 H (17-59) U/L ALT 32 (4-49) U/L Alkaline Phosphatase 88 (38-126) U/L Total Protein 5.4 L (6.3-8.2) g/dL Albumin 2.8 L (3.5-5.0) g/dL Current Medications Generic Name Dose Route Start Last Admin Trade Name Freq PRN Reason Stop Dose Admin Furosemide 40 mg 03/09/21 21:00 Furosemide 10 Mg/Ml 4 Ml Vial IV Q12HR CA Intake and Output 03/08/21 03/09/21 03/09/21 22:59 06:59 14:59 Other: Weight 81.647 kg 03/09/21 07:04 03/09/21 07:04
--- NOTE | 2021-03-09 16:04 | P.CNPUL ---
History of Present Illness Consult date: 03/09/21 Requesting physician: Kamran Pierce Reason for consult: dyspnea, hypoxemia, pleural effusion, abnormal CXR/CT Chief complaint: Shortness of breath/CHF. History of present illness: Pulmonary consult dated 03/09/2021. 70-year-old male who was seen in the emergency department, on March 09. The patient was brought in by EMS, with respiratory distress. The patient apparently was recently inpatient, and recently discharged. The patient also has a history of underlying COPD, but on this admission, was thought to have congestive heart failure. The patient is seen in the emergency department, in room 18. The patient was on 3 L nasal cannula. His BNP was 15,400, and his troponin was 0.048. The patient typically sees doctors and nurse practitioners at [facility] [place]. The patient is currently not on any IV fluids. The patient does have a history of advanced COPD from tobacco use, as well as chronic and ongoing nicotine dependence, atrial fibrillation and mitral valve stenosis. W jose count was 19.2, hemoglobin 11.2, hematocrit 33.1, and platelet count 492,000. PTT was 20.2. Sodium 128, potassium 4.2, chlorides 100, CO2 18, anion gap 10, BUN 18, creatinine 0.84. Lactic acid was initially 3 and repeat was 1.9. Troponin was 0.048, and N-terminal proBNP was 15,400. TSH was normal. Testing for xavier virus was negative. Chest x-ray showed cardiomegaly, and findings typical of fluid overload/CHF. There are small bilateral effusions as well. Review of Systems REVIEW OF SYSTEMS: CONSTITUTIONAL: [Negative.] NEUROLOGIC: [ Negative.] HEENT: [ Negative.] CARDIAC: [Negative.] PULMONARY: Shortness of breath. GI: [Negative.] : [Negative.] RHEUMATOLOGIC: [ Negative.] IMMUNOLOGIC: [ Negative.] ENDOCRINE: [Negative. ] DERMATOLOGIC: [Negative.] Past Medical History Additional Past Medical History / Comment(s): COPD, 2 pack per day smoker for 20 years, patient drinks 6 cans of beer daily History of Any Multi-Drug Resistant Organisms: None Reported Past Surgical History: Unable to Obtain Additional Past Surgical History / Comment(s): Hernia Past Psychological History: No Psychological Hx Reported Past Alcohol Use History: Daily, Heavy Past Drug Use History: None Reported Medications and Allergies Home Medications Medication Instructions Recorded Confirmed Type Apixaban [Eliquis] 5 mg PO BID@08,199903/09/21 03/09/21 History Aspirin 81 mg PO DAILY@0800 03/09/21 03/09/21 History Docusate [Colace] 100 mg PO BID@08,199903/09/21 03/09/21 History Metoprolol Tartrate [Lopressor] 25 mg PO BID@0803/09/21 03/09/21 History Tiotropium 2.5 Mcg/Puff [Spiriva 2 puff INHALATION RT-DAILY@0803/09/21 03/09/21 History Respimat 2.5 Mcg] predniSONE 50 mg PO DAILY 03/09/21 03/09/21 History Allergies Allergy/AdvReac Type Severity Reaction Status Date / Time No Known Allergies Allergy Verified 03/09/21 08:25 Physical Exam Osteopathic Statement: *. No significant issues noted on an osteopathic structural exam other than those noted in the History and Physical/Consult. Vitals: Vital Signs Pulse Resp BP Pulse Ox 03/09/21 15:44 110 H 03/09/21 15:32 112 H 03/09/21 11:39 105 H 18 118/72 93 L 03/09/21 10:35 97 03/09/21 08:08 108 H 18 94/59 100 03/09/21 06:52 111 H 18 94/65 96 03/09/21 06:34 112 H 18 122/74 97 Intake and Output 03/09/21 03/09/21 03/09/21 06:59 14:59 22:59 Other: Weight 81.647 kg No acute distress, oriented 3. Currently on 3 L nasal cannula. Saturations are 93%. HEENT examination is grossly unremarkable. Neck supple. Full range of motion. No adenopathy thyromegaly or neck vein distention. Cardiovascular examination reveals regular rhythm rate. S1-S2 normal. No S3 or S4. No discernible murmur noted. Heart rate about 110 bpm. Lungs reveal bibasilar crackles. Scattered rhonchi are noted. No wheezes. Breath sounds are equal bilaterally. Abdomen soft bowel sounds are heard. No masses or tenderness. Extremities are intact. No cyanosis clubbing or edema. Skin is without rash or lesion. Neurologic examination is brief but nonfocal. Results - Laboratory Findings CBC and BMP: 03/09/21 07:04 03/09/21 07:04 PT/INR, D-dimer PT 10.2 sec (9.0-12.0) 03/09/21 07:04 INR 0.9 (<1.2) 03/09/21 07:04 Abnormal lab findings: Abnormal Labs 03/09/21 03/09/21 03/09/21 07:04 07:04 07:04 WBC 19.2 H RBC 3.35 L Hgb 11.2 L Hct 33.1 L RDW 16.2 H Plt Count 492 H Neutrophils # (Manual) 16.13 H Myelocytes # (Manual) 0.58 H APTT 20.2 L Sodium 128 L Carbon Dioxide 18 L Glucose 240 H Plasma Lactic Acid Ivan Calcium 8.1 L AST 60 H Troponin I Total Protein 5.4 L Albumin 2.8 L 03/09/21 03/09/21 07:04 07:04 WBC RBC Hgb Hct RDW Plt Count Neutrophils # (Manual) Myelocytes # (Manual) APTT Sodium Carbon Dioxide Glucose Plasma Lactic Acid Ivan 3.0 H* Calcium AST Troponin I 0.048 H* Total Protein Albumin - Diagnostic Findings Chest x-ray: image reviewed Assessment and Plan Assessment: Acute shortness of breath, with hypoxemia, likely multifactorial, in part related to underlying CHF, and possibly also to COPD. Vague history of chronic atrial fibrillation. History of COPD from ongoing tobacco use with nicotine addiction. Chronic alcohol use. Severe aortic stenosis by echocardiogram. Plan: Plan dated 03/09/2021. The patient is evaluated and examined in the emergency department. The patient appears to have had an episode of the acute CHF, as reflected in his elevated N- terminal proBNP, and his chest x-ray. The patient apparently was found to have significant aortic stenosis on his echocardiogram. The patient also with ongoing tobacco user, and does have pretty significant COPD. On a previous notes, it was noted that his FEV1 percent was 51, suggesting stage II/stage III COPD. The patient will be given bronchodilators. Additional recommendations and suggestions are forthcoming. The patient has been seen by cardiology. He is counseled about the importance of smoking cessation. Time with Patient: Greater than 30
[2021-03-09] MEDS ORDERED: IPRATROPIUM-ALBUTEROL 3 ML NEB INHALATION PRN (16:05)
[2021-03-09] MEDS: SYMBICORT 160-4.5 MCG INHALER INHALATION SCH (22:13)
[2021-03-09] MEDS: IPRATROPIUM-ALBUTEROL 3 ML NEB INHALATION SCH (22:13)
[2021-03-09] MEDS: DOCUSATE 100 MG CAP PO SCH (23:56)
[2021-03-09] MEDS: APIXABAN 5 MG TAB PO SCH (23:56)
[2021-03-09] MEDS: METOPROLOL TARTRATE 25 MG TAB PO SCH (23:57)
[2021-03-09] MEDS: FUROSEMIDE 10 MG/ML 4 ML VIAL IV SCH (23:57)
[2021-03-10] MEDS ORDERED: IPRATROPIUM 0.5 MG/2.5 ML NEBU INHALATION SCH (08:00)
[2021-03-10] MEDS: DOCUSATE 100 MG CAP PO SCH ×2 (08:16→21:47)
[2021-03-10] MEDS: METOPROLOL TARTRATE 25 MG TAB PO SCH ×2 (08:16→21:47)
[2021-03-10] MEDS: APIXABAN 5 MG TAB PO SCH ×2 (08:16→21:47)
[2021-03-10] MEDS: ASPIRIN 81 MG PO SCH (08:16)
[2021-03-10] MEDS: FUROSEMIDE 10 MG/ML 4 ML VIAL IV SCH (08:17)
[2021-03-10] MEDS ORDERED: ASPIRIN 325 MG TAB PO SCH (09:00)
[2021-03-10] MEDS: IPRATROPIUM-ALBUTEROL 3 ML NEB INHALATION SCH ×4 (09:20→20:44)
[2021-03-10] MEDS: SYMBICORT 160-4.5 MCG INHALER INHALATION SCH ×2 (09:20→20:43)
[2021-03-10 10:34] LABS: Basophils % (A) 0 %; Eosinophils # (A) 0.2 k/uL (0-0.7); Eosinophils % (A) 1 %; HCT 32.5 % (39.0-53.0); HGB 10.9 gm/dL (13.0-17.5); Lymphocytes % (A) 13 %; MCH 34.1 pg (25.0-35.0); MCHC 33.6 g/dL (31.0-37.0); MCV 101.4 fL (80.0-100.0); Macrocytosis Slight; Mean Platelet Volume 7.5; Monocytes # (A) 1.2 k/uL (0-1.0); Monocytes % (A) 8 %; Neutrophils # (A) 11.8 k/uL (1.3-7.7); Neutrophils % (A) 77 %; Platelet Count 402 k/uL (150-450); RBC 3.21 m/uL (4.30-5.90); RDW 15.5 % (11.5-15.5); WBC 15.5 k/uL (3.8-10.6)
[2021-03-10 10:41] LABS: African American GFR (CKD) >90 (>60 ml/min/1.73 sqM); Anion Gap 5 mmol/L; Blood Urea Nitrogen 20 mg/dL (9-20); Calcium 8.2 mg/dL (8.4-10.2); Carbon Dioxide 32 mmol/L (22-30); Chloride 94 mmol/L (98-107); Glucose 105 mg/dL (74-99); Magnesium 1.9 mg/dL (1.6-2.3); Non-African American GFR(CKD) 88 (>60 ml/min/1.73 sqM); Potassium 3.9 mmol/L (3.5-5.1); Sodium 131 mmol/L (137-145)
--- NOTE | 2021-03-10 11:20 | P.PN ---
Subjective Principal diagnosis: Patient is resting comfortably in bed No chest discomfort no dizziness no lightheadedness On examination ejection systolic murmur Blood pressure 5/50 5 mmHg pulse rate 100 Impression Patient presented with shortness of breath consistent with CHF exacerbation, COPD Elevated troponin likely type II MD Hyponatremia History of atrial fibrillation Severe aortic stenosis with ejection fraction 50-55% Suggest Continue ELIQUIS Continue baby aspirin Continue IV Lasix Watch BUN and creatinine Continue metoprolol tartrate 25 mg twice daily Objective - Vital Signs Vital signs: Vital Signs Temp 97.8 F 03/10/21 08:15 Pulse 100 03/10/21 09:33 Resp 18 03/10/21 08:15 BP 105/55 03/10/21 08:15 Pulse Ox 97 03/10/21 08:15 Intake & Output 03/09/21 03/10/21 03/10/21 18:59 06:59 18:59 Intake Total 118 Output Total 1300 Balance -1182 Weight 81.647 kg Intake: Oral 118 Output: Urine 1300 Other: Voiding Method Urinal Urinal - Labs CBC & Chem 7: 03/10/21 09:22 03/10/21 09:22 Labs: Abnormal Lab Results - Last 24 Hours (Table) 03/10/21 03/10/21 Range/Units 09:22 09:22 WBC 15.5 H (3.8-10.6) k/uL RBC 3.21 L (4.30-5.90) m/uL Hgb 10.9 L (13.0-17.5) gm/dL Hct 32.5 L (39.0-53.0) % MCV 101.4 H (80.0-100.0) fL Neutrophils # 11.8 H (1.3-7.7) k/uL Monocytes # 1.2 H (0-1.0) k/uL Sodium 131 L (137-145) mmol/L Chloride 94 L (98-107) mmol/L Carbon Dioxide 32 H (22-30) mmol/L Glucose 105 H (74-99) mg/dL Calcium 8.2 L (8.4-10.2) mg/dL
--- NOTE | 2021-03-10 11:24 | P.PN ---
Subjective Progress Note Date: 03/10/21 70-year-old male came in from [facility] [place] with complains of shortness of breath and patient was hypoxic his oxygen ran out. Patient initially told me he doesn't use oxygen but the [facility] he doesn't know how much oxygen does he uses. Patient does have history of COPD continues to smoke anywhere between 2-20 cigarettes a day. Patient did not give any clear history of orthopnea or paroxysmal nocturnal dyspnea. Patient does have some cough, no fever does have leukocytosis, hyponatremic bit tachycardic presently on 6 L of oxygen. Patient had a chest x-ray, and I'm unable to review the images by myself but as per the report patient has a lateral infiltrates consi stent with CHF and elevated BNP of around 15,000 patient clinically doesn't have any pedal edema doesn't have any elevated JVD. X 03/10/2021 Patient evaluated today, he is currently on 6 L nasal cannula and oxygen saturation 97%, blood pressure 105/55, heart rate 112, afebrile. Echocardiogram showed an EF of 50-55% with severe aortic stenosis. Continues on IV Lasix. Patient states that he does feel like his lungs are still tight today. Labs today show white count of 15.5, hemoglobin 10.9, sodium 131, potassium 3.9, chloride 94, CO2 32, sugar 105. Lactic acidosis resolved 1.9. Magnesium 1.9. ROS Constitutional: Denied any fatigue denied any fever. Cardio vascular: denied any chest pain, palpitations Gastrointestinal denied any nausea vomiting Pulmonary: Reports cough, Reports shortness of breath Neurologic denied any new focal deficits All inpatient medications were reviewed and appropriate changes in these medications as dictated in the interval history and assessment and plan. PHYSICAL EXAMINATION: GENERAL: The patient is alert and oriented x3, not in any acute distress. Well developed, well nourished. HEENT: Pupils are round and equally reacting to light. EOMI. No scleral icterus. No conjunctival pallor. Normocephalic, atraumatic. No pharyngeal erythema. No thyromegaly. CARDIOVASCULAR: S1 and S2 present. Murmur present PULMONARY: bibasilar crackles, decreased aeration ABDOMEN: Soft, nontender, nondistended, normoactive bowel sounds. No palpable organomegaly. MUSCULOSKELETAL: No joint swelling or deformity. EXTREMITIES: No cyanosis, clubbing, trace ankle edema NEUROLOGICAL: Gross neurological examination did not reveal any focal deficits. SKIN: No rashes. Assessment and Plan Assessment -Shortness of breath, acute hypoxic respiratory failure: Most probably secondary to congestive heart failure, and underlying COPD -Acute on chronic congestive heart failure, EF 50-55%, mild systolic dysfunction, on IV Lasix -chronic hypoxic and hypercapnic respiratory failure secondary to COPD -Severe aortic stenosis -History of COPD, not in acute exacerbation -Mildly elevated troponin probably secondary to congestive heart failure -Hypervolemic hyponatremia -Continue nicotine use: Counseling was provided DVT prophylaxis: Maged, possible underlying atrial fibrillation, currently in sinus tachycardia Plan Continue IV Lasix Labs in the AM Cardiology Consult Pulmonary Consult Objective - Vital Signs Vital signs: Vital Signs Temp 98.5 F 03/10/21 03:33 Pulse 90 03/10/21 03:33 Resp 18 03/10/21 03:33 BP 96/54 03/10/21 03:33 Pulse Ox 95 03/10/21 03:33 Intake & Output 03/09/21 03/10/21 03/10/21 18:59 06:59 18:59 Weight 81.647 kg Other: Voiding Method Urinal Urinal - Labs CBC & Chem 7: 03/10/21 09:22 03/10/21 09:22 Labs: Abnormal Lab Results - Last 24 Hours (Table) 03/09/21 03/09/21 Range/Units 07:04 07:04 WBC 19.2 H (3.8-10.6) k/uL RBC 3.35 L (4.30-5.90) m/uL Hgb 11.2 L (13.0-17.5) gm/dL Hct 33.1 L (39.0-53.0) % RDW 16.2 H (11.5-15.5) % Plt Count 492 H (150-450) k/uL Neutrophils # (Manual) 16.13 H (1.3-7.7) k/uL Myelocytes # (Manual) 0.58 H (0) k/uL Troponin I 0.048 H* (0.000-0.034) ng/mL
--- NOTE | 2021-03-10 14:06 | P.PN ---
Subjective Progress Note Date: 03/10/21 Principal diagnosis: Shortness of breath Pulmonary consult dated 03/09/2021. 70-year-old male who was seen in the emergency department, on March 09. The patient was brought in by EMS, with respiratory distress. The patient apparently was recently inpatient, and recently discharged. The patient also has a history of underlying COPD, but on this admission, was thought to have congestive heart failure. The patient is seen in the emergency department, in room 18. The patient was on 3 L nasal cannula. His BNP was 15,400, and his troponin was 0.048. The patient typically sees doctors and nurse practitioners at the [facility] in [place]. The patient is currently not on any IV fluids. The patient does have a history of advanced COPD from tobacco use, as well as chronic and o ngoing nicotine dependence, atrial fibrillation and mitral valve stenosis. White count was 19.2, hemoglobin 11.2, hematocrit 33.1, and platelet count 492,000. PTT was 20.2. Sodium 128, potassium 4.2, chlorides 100, CO2 18, anion gap 10, BUN 18, creatinine 0.84. Lactic acid was initially 3 and repeat was 1.9. Troponin was 0.048, and N-terminal proBNP was 15,400. TSH was normal. Testing for xavier virus was negative. Chest x-ray showed cardiomegaly, and findings typical of fluid overload/CHF. There are small bilateral effusions as well. Progress note dated 03/10/2021. 70-year-old male, who we saw yesterday in consultation. He was brought in by EMS for respiratory distress. The patient has a history of underlying COPD, but on this admission, the primary issue was that of CHF. Currently, he is not on any IV fluids. He is on 6 L nasal cannula. He does feel better. When I went into the room, the respiratory therapist within the room with him. He denies any chest pain or chest discomfort. He's not coughing up any phlegm. He denies any fever or chills. White count 15.5, heme him 10.9, hematocrit 32.5, platelet count 402,000. PTT was 20.2. Sodium 131, potassium 3.9, chloride 94, CO2 32, anion gap 5, BUN 20, creatinine 0.83. Objective - Vital Signs Vital signs: Vital Signs Temp 97.6 F 03/10/21 12:00 Pulse 100 03/10/21 12:54 Resp 18 03/10/21 12:00 BP 101/54 03/10/21 12:00 Pulse Ox 96 03/10/21 12:00 Intake & Output 03/09/21 03/10/21 03/10/21 18:59 06:59 18:59 Intake Total 358 Output Total 1300 Balance -942 Weight 81.647 kg Intake: Oral 358 Output: Urine 1300 Other: Voiding Method Urinal Urinal - Exam No acute distress, oriented 3. Currently on 6 L nasal cannula. No conversational dyspnea. HEENT examination is grossly unremarkable. Neck supple. Full range of motion. No adenopathy thyromegaly or neck vein distention. Cardiovascular examination reveals regular rhythm rate. S1-S2 normal. No S3 or S4. No discernible murmur noted. Heart rate about 100 bpm. Lungs reveal bibasilar crackles. Scattered rhonchi are noted. No wheezes. Breath sounds are equal bilaterally. 6 L saturation is 96%. Abdomen soft bowel sounds are heard. No masses or tenderness. Extremities are intact. No cyanosis clubbing or edema. Skin is without rash or lesion. Neurologic examination is brief but nonfocal. - Labs CBC & Chem 7: 03/10/21 09:22 03/10/21 09:22 Labs: Abnormal Lab Results - Last 24 Hours (Table) 03/10/21 03/10/21 Range/Units 09:22 09:22 WBC 15.5 H (3.8-10.6) k/uL RBC 3.21 L (4.30-5.90) m/uL Hgb 10.9 L (13.0-17.5) gm/dL Hct 32.5 L (39.0-53.0) % MCV 101.4 H (80.0-100.0) fL Neutrophils # 11.8 H (1.3-7.7) k/uL Monocytes # 1.2 H (0-1.0) k/uL Sodium 131 L (137-145) mmol/L Chloride 94 L (98-107) mmol/L Carbon Dioxide 32 H (22-30) mmol/L Glucose 105 H (74-99) mg/dL Calcium 8.2 L (8.4-10.2) mg/dL Microbiology - Last 24 Hours (Table) 03/09/21 09:55 Blood Culture - Preliminary Blood No Growth after 24 hours 03/09/21 09:45 Blood Culture - Preliminary Blood No Growth after 24 hours Assessment and Plan Assessment: Acute shortness of breath, with hypoxemia, likely multifactorial, in part related to underlying CHF, and possibly also to COPD. Vague history of chronic atrial fibrillation. History of COPD from ongoing tobacco use with nicotine addiction. Chronic alcohol use. Severe aortic stenosis by echocardiogram. Plan: Plan dated 03/09/2021. The patient is evaluated and examined in the emergency department. The patient appears to have had an episode of the acute CHF, as reflected in his elevated N- terminal proBNP, and his chest x-ray. The patient apparently was found to have significant aortic stenosis on his echocardiogram. The patient also with ongoing tobacco user, and does have pretty significant COPD. On a previous notes, it was noted that his FEV1 percent was 51, suggesting stage II/stage III COPD. The patient will be given bronchodilators. Additional recommendations and suggestions are forthcoming. The patient has been seen by cardiology. He is counseled about the importance of smoking cessation. Plan dated 03/10/2021. The patient appears be doing much better. His breathing is improved. Yesterday, we saw him, he was on 3 L nasal cannula. Currently he is on 6 L, but his saturation is 96%. Hence, the oxygen can probably be titrated down. His admission N-terminal proBNP was 15,400. Troponin was 0.048. Coronavirus melissa ting was negative. The patient remains on Symbicort, DuoNeb, and also Lasix. We will continue to follow. Recommendations will be made where appropriate. Prognosis is guarded. He is counseled about the importance of smoking cessation. Time with Patient: Less than 30
[2021-03-11 03:42] VITALS: RESP 18
[2021-03-11] MEDS: IPRATROPIUM-ALBUTEROL 3 ML NEB INHALATION SCH ×3 (06:56→15:56)
[2021-03-11] MEDS: SYMBICORT 160-4.5 MCG INHALER INHALATION SCH (06:57)
[2021-03-11] MEDS: METOPROLOL TARTRATE 25 MG TAB PO SCH (07:59)
[2021-03-11] MEDS: APIXABAN 5 MG TAB PO SCH (07:59)
[2021-03-11] MEDS: DOCUSATE 100 MG CAP PO SCH (07:59)
[2021-03-11] MEDS: ASPIRIN 81 MG PO SCH (07:59)
[2021-03-11 08:19] LABS: Basophils # (A) 0.1 k/uL (0-0.2); Basophils % (A) 1 %; Eosinophils # (A) 0.3 k/uL (0-0.7); Eosinophils % (A) 2 %; HCT 32.9 % (39.0-53.0); HGB 10.8 gm/dL (13.0-17.5); Lymphocytes # (A) 1.6 k/uL (1.0-4.8); Lymphocytes % (A) 11 %; MCH 33.5 pg (25.0-35.0); MCHC 32.9 g/dL (31.0-37.0); MCV 101.6 fL (80.0-100.0); Macrocytosis Slight; Mean Platelet Volume 7.2; Monocytes % (A) 7 %; Neutrophils # (A) 11.5 k/uL (1.3-7.7); Neutrophils % (A) 79 %; Platelet Count 383 k/uL (150-450); RBC 3.23 m/uL (4.30-5.90); RDW 15.6 % (11.5-15.5); WBC 14.6 k/uL (3.8-10.6)
[2021-03-11] MEDS ORDERED: FUROSEMIDE 10 MG/ML 4 ML VIAL IV SCH (09:00)
[2021-03-11 09:19] LABS: African American GFR (CKD) >90 (>60 ml/min/1.73 sqM); Anion Gap 5 mmol/L; Blood Urea Nitrogen 20 mg/dL (9-20); Calcium 8.2 mg/dL (8.4-10.2); Carbon Dioxide 29 mmol/L (22-30); Chloride 95 mmol/L (98-107); Glucose 116 mg/dL (74-99); Non-African American GFR(CKD) 86 (>60 ml/min/1.73 sqM); Potassium 3.7 mmol/L (3.5-5.1); Sodium 129 mmol/L (137-145)
--- NOTE | 2021-03-11 10:38 | P.PN ---
Subjective Patient is resting comfortably in bed. He has no chest discomfort no dizziness lightheadedness no respiratory distress no chest pain His pulse rate is between 9805 beats a minute, afebrile Blood pressure 90/60 mmHg I can barely hear a very soft ejection systolic murmur over the precordium Lungs clear no rhonchi no crackles Normal extremity edema Labs reviewed White count elevated 14.6 thousand, hemoglobin 10.8 Sodium 129, potassium 3.7 Normal renal function BNP was increased to 15,000 upon admission Impression Acute diastolic heart failure Severe aortic stenosis. History of atrial fibrillation Minimally abnormal troponins on account of supply demand mismatch/type II [facility] Suggest Continue apixaban Continue baby aspirin Switched to by mouth Lasix Will discuss management of aortic stenosis with patient Objective - Vital Signs Vital signs: Vital Signs Temp 97.4 F L 03/11/21 07:54 Pulse 105 H 03/11/21 08:00 Resp 18 03/11/21 08:00 BP 98/60 03/11/21 07:54 Pulse Ox 93 L 03/11/21 07:54 Intake & Output 03/10/21 03/11/21 03/11/21 18:59 06:59 18:59 Intake Total 598 460 Output Total 5762 883 6554 Balance -9148 -678 -1475 Weight 68.4 kg Intake: Oral 598 460 Output: Urine 7716 686 9711 Other: Voiding Method Urinal Urinal # Voids 2 - Labs CBC & Chem 7: 03/11/21 07:44 03/11/21 07:44 Labs: Abnormal Lab Results - Last 24 Hours (Table) 03/10/21 03/11/21 03/11/21 Range/Units 09:22 07:44 07:44 WBC 14.6 H (3.8-10.6) k/uL RBC 3.23 L (4.30-5.90) m/uL Hgb 10.8 L (13.0-17.5) gm/dL Hct 32.9 L (39.0-53.0) % MCV 101.6 H (80.0-100.0) fL RDW 15.6 H (11.5-15.5) % Neutrophils # 11.5 H (1.3-7.7) k/uL Sodium 131 L 129 L (137-145) mmol/L Chloride 94 L 95 L (98-107) mmol/L Carbon Dioxide 32 H (22-30) mmol/L Glucose 105 H 116 H (74-99) mg/dL Calcium 8.2 L 8.2 L (8.4-10.2) mg/dL Microbiology - Last 24 Hours (Table) 03/09/21 09:55 Blood Culture - Preliminary Blood No Growth after 24 hours 03/09/21 09:45 Blood Culture - Preliminary Blood No Growth after 24 hours
--- NOTE | 2021-03-11 14:12 | P.DS ---
Providers Date of admission: 03/09/21 09:17 Expected date of discharge: 03/11/21 Attending physician: Kamran Pierce MD Consults: 03/09/21 09:14 Consult Physician Routine Consulting Provider: Albaro Souza Consult Reason/Comments: copd Do you want consulting provider notified?: Yes Consult Physician Routine Consulting Provider: Khang Rowe Consult Reason/Comments: chf Do you want consulting provider notified?: Yes Primary care physician: [facility] Hospital Course: 70-year-old male came in from [facility] with complains of shortness of breath and patient was hypoxic his oxygen ran out. Patient initially told me he doesn't use oxygen but the patient apparently uses oxygen at longterm he doesn't know how much oxygen does he uses. Patient does have history of COPD continues to smoke anywhere between 2-20 cigarettes a day. Patient did not give any clear history of orthopnea or paroxysmal nocturnal dyspnea. Patient does have some cough, no fever does have leukocytosis, hyponatremic bit tachycardic presently on 6 L of oxygen. Patient had a chest x-ray, and I'm unable to review the images by myself but as per the report patient has a lateral infiltrates consistent with CHF and elevated BNP of around 15,000 patient clinically doesn't have any pedal edema doesn't have any elevated JVD. X 03/10/2021 Patient evaluated today, he is currently on 6 L nasal cannula and oxygen saturation 97%, blood pressure 105/55, heart rate 112, afebrile. Echocardiogram showed an EF of 50-55% with severe aortic stenosis. Continues on IV Lasix. Patient states that he does feel like his lungs are still tight today. Labs today show white count of 15.5, hemoglobin 10.9, sodium 131, potassium 3.9, chloride 94, CO2 32, sugar 105. Lactic acidosis resolved 1.9. Magnesium 1.9. ROS Constitutional: Denied any fatigue denied any fever. Cardio vascular: denied any chest pain, palpitations Gastrointestinal denied any nausea vomiting Pulmonary: Reports cough, Reports shortness of breath Neurologic denied any new focal deficits All inpatient medications were reviewed and appropriate changes in these medications as dictated in the interval history and assessment and plan. PHYSICAL EXAMINATION: GENERAL: The patient is alert and oriented x3, not in any acute distress. Well developed, well nourished. HEENT: Pupils are round and equally reacting to light. EOMI. No scleral icterus. No conjunctival pallor. Normocephalic, atraumatic. No pharyngeal erythema. No thyromegaly. CARDIOVASCULAR: S1 and S2 present. Murmur present PULMONARY: bibasilar crackles, decreased aeration ABDOMEN: Soft, nontender, nondistended, normoactive bowel sounds. No palpable organomegaly. MUSCULOSKELETAL: No joint swelling or deformity. EXTREMITIES: No cyanosis, clubbing, trace ankle edema NEUROLOGICAL: Gross neurological examination did not reveal any focal deficits. SKIN: No rashes. Assessment and Plan Assessment -Shortness of breath, acute hypoxic respiratory failure: Most probably secondary to congestive heart failure, and underlying COPD -Acute on chronic congestive heart failure, EF 50-55%, mild systolic dysfunction, on IV Lasix -chronic hypoxic and hypercapnic respiratory failure secondary to COPD -Severe aortic stenosis -History of COPD, not in acute exacerbation -Mildly elevated troponin probably secondary to congestive heart failure -Hypervolemic hyponatremia -Continue nicotine use: Counseling was provided DVT prophylaxis: Maged, possible underlying atrial fibrillation, currently in sinus tachycardia Plan Continue IV Lasix Labs in the AM Cardiology Consult Pulmonary Consult patient diuresed well with IV Lasix and is being transitioned to oral per cardiology recommendations; patient is stable to be transferred to skilled rehab Patient Condition at Discharge: Serious Plan - Discharge Summary Discharge Rx Participant: Yes New Discharge Prescriptions: New Furosemide [Lasix] 40 mg PO DAILY #60 tab Continue Apixaban [Eliquis] 5 mg PO BID@ Tiotropium 2.5 Mcg/Puff [Spiriva Respimat 2.5 Mcg] 2 puff INHALATION RT- DAILY@799 Aspirin 81 mg PO DAILY@08 Metoprolol Tartrate [Lopressor] 25 mg PO BID@ Docusate [Colace] 100 mg PO BID@ predniSONE 50 mg PO DAILY Discharge Medication List Apixaban [Eliquis] 5 mg PO BID@799,199903/09/21 [History] Aspirin 81 mg PO DAILY@0803/09/21 [History] Docusate [Colace] 100 mg PO BID@03/09/21 [History] Metoprolol Tartrate [Lopressor] 25 mg PO BID@03/09/21 [History] Tiotropium 2.5 Mcg/Puff [Spiriva Respimat 2.5 Mcg] 2 puff INHALATION RT- DAILY@0800 03/09/21 [History] predniSONE 50 mg PO DAILY 03/09/21 [History] Furosemide [Lasix] 40 mg PO DAILY #60 tab 03/11/21 [Rx] Follow up Appointment(s)/Referral(s): [facility],Clinic [Primary Care Provider] - 1-2 days Discharge Disposition: TRANSFER TO SNF/ECF
[2021-03-11 15:02] VITALS: BP 102/63; PULSE 96; TEMP 97.9
[2021-03-12] MEDS ORDERED: FUROSEMIDE 40 MG TAB PO SCH (09:00)
== END 2021-03-11 16:00 | DRG 280 ==
LOC: EC 06:32 → 3SCARD 09:17
PROVIDERS: ADMIT Internal Medicine; ATTEND Internal Medicine
PROC: 5A09357 Assistance with Respiratory Ventilation, Less than 24 Consecutive Hours, Continuous Positive Airway Pressure (ICD-10-PCS; principal; 2021-03-09)
DX: I50.31 Acute diastolic (congestive) heart failure (principal); J96.21 Acute and chronic respiratory failure with hypoxia; I21.A1 Myocardial infarction type 2; J96.22 Acute and chronic respiratory failure with hypercapnia; I48.20 Chronic atrial fibrillation, unspecified; E87.1 Hypo-osmolality and hyponatremia; E87.2 Acidosis; Z20.822 Contact with and (suspected) exposure to COVID-19; Z79.01 Long term (current) use of anticoagulants; J44.9 Chronic obstructive pulmonary disease, unspecified; D72.829 Elevated white blood cell count, unspecified; F17.200 Nicotine dependence, unspecified, uncomplicated; I08.0 Rheumatic disorders of both mitral and aortic valves; Z79.82 Long term (current) use of aspirin; Z79.899 Other long term (current) drug therapy; Z99.81 Dependence on supplemental oxygen
CPT/HCPCS: 36415; 71045; 80048; 80053; 83605; 83735; 83880; 84443; 84484; 85025; 85610; 85730; 87040; 87635; 93005; 93306; 94640; 94660; 94760; 96361; 96374; 96375; 99285

== ENCOUNTER 2021-03-14 00:23 | Inpatient (IN) | payer MEDICARE ==
[2021-03-14] MEDS ORDERED: methylPREDNISolone SOD SUCCI 125 MG/2 ML VIAL IV STA (00:33)
[2021-03-14] MEDS ORDERED: IPRATROPIUM 0.5 MG/2.5 ML NEBU INHALATION STA (00:33)
[2021-03-14] MEDS ORDERED: ALBUTEROL NEBULIZED 2.5 MG/3 ML INHALATION STA (00:33)
--- NOTE | 2021-03-14 00:34 | ED ---
SOB HPI - General Chief Complaint: Shortness of Breath Stated Complaint: SOB Time Seen by Provider: 03/14/21 00:33 Source: EMS Mode of arrival: EMS Limitations: physical limitation - Related Data Home Medications Medication Instructions Recorded Confirmed Apixaban [Eliquis] 5 mg PO BID@0800,199903/09/21 03/09/21 Aspirin 81 mg PO DAILY@0800 03/09/21 03/09/21 Docusate [Colace] 100 mg PO BID@08,199903/09/21 03/09/21 Metoprolol Tartrate [Lopressor] 25 mg PO BID@08,199903/09/21 03/09/21 Tiotropium 2.5 Mcg/Puff [Spiriva 2 puff INHALATION RT-DAILY@79903/09/21 03/09/21 Respimat 2.5 Mcg] predniSONE 50 mg PO DAILY 03/09/21 03/09/21 Previous Rx's Medication Instructions Recorded Furosemide [Lasix] 40 mg PO DAILY #60 tab 03/11/21 Allergies Allergy/AdvReac Type Severity Reaction Status Date / Time No Known Allergies Allergy Verified 03/09/21 08:25 Review of Systems ROS Statement: Those systems with pertinent positive or pertinent negative responses have been documented in the HPI. ROS Other: All systems not noted in ROS Statement are negative. Past Medical History Past Medical History: Heart Failure Additional Past Medical History / Comment(s): COPD, 2 pack per day smoker for 20 years, patient drinks 6 cans of beer daily History of Any Multi-Drug Resistant Organisms: None Reported Past Surgical History: Unable to Obtain Additional Past Surgical History / Comment(s): Hernia Past Psychological History: No Psychological Hx Reported Smoking Status: Former smoker Past Alcohol Use History: Daily, Heavy Past Drug Use History: None Reported - Past Family History Mother Family Medical History: Diabetes Mellitus Father Family Medical History: Cancer Additional Family Medical History / Comment(s): from lung cancer General Exam Limitations: physical limitation Course Vital Signs 03/14/21 03/14/21 03/14/21 00:24 00:47 00:49 Temperature 97.3 F L Pulse Rate 118 H 121 H 119 H Respiratory 25 H 25 H Rate Blood Pressure 136/85 128/84 O2 Sat by Pulse 97 95 Oximetry 03/14/21 03/14/21 03/14/21 00:53 01:01 01:02 Temperature Pulse Rate 115 H 119 H Respiratory 29 H 20 Rate Blood Pressure 99/65 O2 Sat by Pulse 98 Oximetry 03/14/21 01:37 Temperature Pulse Rate 111 H Respiratory 20 Rate Blood Pressure 112/71 O2 Sat by Pulse 96 Oximetry Medical Decision Making - Lab Data Result diagrams: 03/14/21 00:37 03/14/21 00:37 Lab Results 03/14/21 03/14/21 03/14/21 Range/Units 00:37 00:37 00:37 WBC 16.0 H (3.8-10.6) k/uL RBC 3.39 L (4.30-5.90) m/uL Hgb 11.5 L (13.0-17.5) gm/dL Hct 33.4 L (39.0-53.0) % MCV 98.8 (80.0-100.0) fL MCH 34.0 (25.0-35.0) pg MCHC 34.5 (31.0-37.0) g/dL RDW 15.7 H (11.5-15.5) % Plt Count 399 (150-450) k/uL MPV 7.7 Neutrophils % 86 % Lymphocytes % 8 % Monocytes % 5 % Eosinophils % 1 % Basophils % 0 % Neutrophils # 13.7 H (1.3-7.7) k/uL Lymphocytes # 1.3 (1.0-4.8) k/uL Monocytes # 0.7 (0-1.0) k/uL Eosinophils # 0.2 (0-0.7) k/uL Basophils # 0.0 (0-0.2) k/uL Macrocytosis Slight PT 10.0 (9.0-12.0) sec INR 0.9 (<1.2) APTT 23.0 (22.0-30.0) sec Sodium 124 L (137-145) mmol/L Potassium 4.7 (3.5-5.1) mmol/L Chloride 97 L (98-107) mmol/L Carbon Dioxide 21 L (22-30) mmol/L Anion Gap 6 mmol/L BUN 23 H (9-20) mg/dL Creatinine 0.73 (0.66-1.25) mg/dL Est GFR (CKD-EPI)AfAm >90 (>60 ml/min/1.73 sqM) Est GFR (CKD-EPI)NonAf >90 (>60 ml/min/1.73 sqM) Glucose 259 H (74-99) mg/dL Plasma Lactic Acid Ivan (0.7-2.0) mmol/L Calcium 7.7 L (8.4-10.2) mg/dL Magnesium 2.4 H (1.6-2.3) mg/dL Total Bilirubin 0.7 (0.2-1.3) mg/dL AST 35 (17-59) U/L ALT 23 (4-49) U/L Alkaline Phosphatase 83 (38-126) U/L Troponin I (0.000-0.034) ng/mL NT-Pro-B Natriuret Pep pg/mL Total Protein 5.6 L (6.3-8.2) g/dL Albumin 3.1 L (3.5-5.0) g/dL 03/14/21 03/14/21 03/14/21 Range/Units 00:37 00:37 00:37 WBC (3.8-10.6) k/uL RBC (4.30-5.90) m/uL Hgb (13.0-17.5) gm/dL Hct (39.0-53.0) % MCV (80.0-100.0) fL MCH (25.0-35.0) pg MCHC (31.0-37.0) g/dL RDW (11.5-15.5) % Plt Count (150-450) k/uL MPV Neutrophils % % Lymphocytes % % Monocytes % % Eosinophils % % Basophils % % Neutrophils # (1.3-7.7) k/uL Lymphocytes # (1.0-4.8) k/uL Monocytes # (0-1.0) k/uL Eosinophils # (0-0.7) k/uL Basophils # (0-0.2) k/uL Macrocytosis PT (9.0-12.0) sec INR (<1.2) APTT (22.0-30.0) sec Sodium (137-145) mmol/L Potassium (3.5-5.1) mmol/L Chloride (98-107) mmol/L Carbon Dioxide (22-30) mmol/L Anion Gap mmol/L BUN (9-20) mg/dL Creatinine (0.66-1.25) mg/dL Est GFR (CKD-EPI)AfAm (>60 ml/min/1.73 sqM) Est GFR (CKD-EPI)NonAf (>60 ml/min/1.73 sqM) Glucose (74-99) mg/dL Plasma Lactic Acid Ivan 2.3 H* (0.7-2.0) mmol/L Calcium (8.4-10.2) mg/dL Magnesium (1.6-2.3) mg/dL Total Bilirubin (0.2-1.3) mg/dL AST (17-59) U/L ALT (4-49) U/L Alkaline Phosphatase (38-126) U/L Troponin I 0.020 (0.000-0.034) ng/mL NT-Pro-B Natriuret Pep 8540 pg/mL Total Protein (6.3-8.2) g/dL Albumin (3.5-5.0) g/dL - EKG Data -: EKG Interpreted by Me (EKG shows sinus tachycardia 117 HI 160 QRS 82 QTC 457) Disposition Clinical Impression: Acute exacerbation of chronic obstructive airways disease, Congestive heart failure, Respiratory failure, Hypoxia Disposition: ADMITTED IP TO THIS HOSP Condition: Fair Is patient prescribed a controlled substance at d/c from ED?: No Referrals: [facility],Clinic [Primary Care Provider] - 1-2 days
[2021-03-14 01:04] LABS: Basophils % (A) 0 %; Eosinophils # (A) 0.2 k/uL (0-0.7); Eosinophils % (A) 1 %; HCT 33.4 % (39.0-53.0); HGB 11.5 gm/dL (13.0-17.5); Lymphocytes # (A) 1.3 k/uL (1.0-4.8); Lymphocytes % (A) 8 %; MCHC 34.5 g/dL (31.0-37.0); MCV 98.8 fL (80.0-100.0); Macrocytosis Slight; Mean Platelet Volume 7.7; Monocytes # (A) 0.7 k/uL (0-1.0); Monocytes % (A) 5 %; Neutrophils # (A) 13.7 k/uL (1.3-7.7); Neutrophils % (A) 86 %; Platelet Count 399 k/uL (150-450); RBC 3.39 m/uL (4.30-5.90); RDW 15.7 % (11.5-15.5)
[2021-03-14 01:16] LABS: INR 0.9 (<1.2)
--- NOTE | 2021-03-14 01:23 | XR ---
EXAMINATION TYPE: XR chest 1V portable DATE OF EXAM: 03/14/2021 COMPARISON: 03/09/2021 HISTORY: Short of breath TECHNIQUE: FINDINGS: There is pulmonary interstitial and mild airspace edema. There is blunting of the costophre graciela angles. Heart size is fairly normal. Thoracic aorta is atheromatous. IMPRESSION: Pulmonary edema similar to old exam. Bilateral pleural effusions. This could relate to pu lmonary fibrosis and acute superimposed interstitial pneumonia. Heart failure not excluded.
[2021-03-14 01:36] LABS: ALT 23 U/L (4-49); AST 35 U/L (17-59); African American GFR (CKD) >90 (>60 ml/min/1.73 sqM); Albumin 3.1 g/dL (3.5-5.0); Alkaline Phosphatase 83 U/L (38-126); Anion Gap 6 mmol/L; Blood Urea Nitrogen 23 mg/dL (9-20); Calcium 7.7 mg/dL (8.4-10.2); Carbon Dioxide 21 mmol/L (22-30); Chloride 97 mmol/L (98-107); Glucose 259 mg/dL (74-99); Magnesium 2.4 mg/dL (1.6-2.3); Non-African American GFR(CKD) >90 (>60 ml/min/1.73 sqM); Potassium 4.7 mmol/L (3.5-5.1); Sodium 124 mmol/L (137-145); Total Bilirubin 0.7 mg/dL (0.2-1.3); Total Protein 5.6 g/dL (6.3-8.2)
[2021-03-14] MEDS ORDERED: ONDANSETRON 4 MG/2 ML VIAL IVP PRN (02:04)
[2021-03-14] MEDS ORDERED: NALOXONE 0.4 MG/ML 1 ML VIAL IV PRN (02:04)
[2021-03-14] MEDS ORDERED: MORPHINE SULFATE 4 MG/ML SYRINGE IV PRN (02:04)
[2021-03-14] MEDS ORDERED: LORazepam 2 MG/ML INJ IV PRN (02:04)
[2021-03-14] MEDS ORDERED: IPRATROPIUM-ALBUTEROL 3 ML NEB INHALATION STA (02:07)
[2021-03-14] MEDS ORDERED: ACETAMINOPHEN TAB 500 MG TAB PO STA (02:57)
[2021-03-14] MEDS ORDERED: IBUPROFEN 600 MG TAB PO STA (02:57)
[2021-03-14] MEDS ORDERED: PIPERACILLIN-TAZOBACTAM 3.375 GM in SODIUM CHLORIDE 0.9% 100 ML IVPB STA (03:06)
[2021-03-14] MEDS ORDERED: LEVOFLOXACIN 750MG-D5W PMX 750 MG in DEXTROSE/WATER 1 150ML.BAG IVPB SCH (03:15)
[2021-03-14] MEDS: IPRATROPIUM-ALBUTEROL 3 ML NEB INHALATION SCH ×6 (03:15→19:31)
[2021-03-14] MEDS ORDERED: LEVOFLOXACIN 750MG-D5W PMX 750 MG in DEXTROSE/WATER 1 150ML.BAG IVPB ONE (03:30)
[2021-03-14] MEDS ORDERED: FUROSEMIDE 10 MG/ML 2 ML VIAL IV STA (08:30)
--- NOTE | 2021-03-14 10:44 | CONS ---
CONSULTATION HISTORY OF PRESENT ILLNESS: This is a 70-year-old gentleman with history of COPD and aortic stenosis, emphysema, who is a long-standing smoker, presented to hospital complaining of worsening shortness of breath over the last 1-2 days. The patient was admitted to the hospital on the of this month and was discharged home when he got better. The patient has had similar symptoms and apparently had been evaluated at [facility]. At his last admission, Cardiology was consulted because of elevated BNP. BNP is still elevated at 8540 due to which we have been consulted again for possible congestive heart failure. His clinical presentation is most consistent with COPD exacerbation, than CHF exacerbation. He does not have leg edema and does not have PND or orthopnea. An echocardiogram done at last admission revealed normal LV systolic function with severe aortic stenosis. There was mild mitral and tricuspid regurgitation noted. A chest x-ray on this admission reveals bilateral air space disease which is very similar to the chest x-ray that he had at last admission, which could be from pulmonary fibrosis. However, heart failure cannot be ruled out. An EKG on this admission revealed sinus tachycardia with left ventricular hypertrophy with nonspecific ST-T wave changes. LABS: Labs show that the white cell count is elevated. Potassium is 4.7, sodium is 124, creatinine is 0.7. Troponin is negative at 0.02. BNP is elevated. Aldrich virus is negative. MEDICATIONS: Medications at home included: Metoprolol 25 b.i.d., Eliquis 5 mg b.i.d., aspirin and Spiriva. ALLERGIES: There are no known drug allergies. FAMILY HISTORY: Negative for premature coronary artery disease. SOCIAL HISTORY: Significant for smoking, and ETOH abuse. Denies any drug abuse. REVIEW OF SYSTEMS: HEENT is unremarkable. CARDIAC as described above. RESPIRATORY as described above. GI negative. GENITOURINARY negative. ALLERGY: None. SKIN negative. MUSCULOSKELETAL significant for arthritis. PSYCHOSOCIAL negative. CONSTITUTIONAL negative. ONCOLOGICAL negative. FOLLOW UP MANAGER negative. Rest of the system review is not relevant. PHYSICAL EXAM: Heart rate is 106 beats per minute. Blood pressure is 101/60, respiratory rate is 24. He is afebrile. O2 saturation is 100% on BiPAP. Labs show that the white cell count is elevated. Hemoglobin is normal potassium is 4.7. Tropes is normal. BNP is elevated. ASSESSMENT: 1. Acute onset shortness of breath probably due to a combination of chronic obstructive pulmonary disease and congestive heart failure exacerbations. 2. Severe aortic stenosis. PLAN: The patient will be treated with antibiotics, nebulizers, I will add a small dose of diuretic to see if this would make any difference. It is unclear as to why the patient is on Eliquis. We need to get hold of his old records. I will start him on IV Lasix and see how his symptoms, chest x-ray appearance evolves. He has acute exacerbation of chronic diastolic heart failure. The patient has significant aortic stenosis and this obviously needs to be evaluated in the outpatient setting. MMODL / IJN: [id number] /
[2021-03-14] MEDS ORDERED: PIPERACILLIN-TAZOBACTAM 3.375 GM in SODIUM CHLORIDE 0.9% 100 ML IVPB SCH (12:00)
--- NOTE | 2021-03-14 12:56 | P.HPIM ---
History of Present Illness Patient is a 70-year-old male with known history of aortic stenosis, I start failure chronic diastolic dysfunction was recently discharged from hospital after he was treated for heart failure exacerbation comes back again with shortn ess of breath does admit to orthopnea and denied any significant history of paroxysmal nocturnal dyspnea. Patient BNP is highly elevated at this time which was elevated during his last hospitalization as well. Patient is hyponatremic as well as chest x-ray is consistent with congestive heart failure. Patient does have leukocytosis no fever patient was started on Zosyn and levofloxacin probably not necessary. I dyspnea Zosyn. I'll obtain pro-calcitonin level if that's negative or low and Lasix will be discontinued at that time. Patient will be started on scheduled Lasix patient did have improvement in urine output and respiratory status improvement after a small dose of Lasix. Patient appears to be noncompliant with his diet. REVIEW OF SYSTEMS: CONSTITUTIONAL: No fever, no malaise, no fatigue. HEENT: No recent visual problems or hearing problems. Denied any sore throat. CARDIOVASCULAR: No chest pain,PND, no palpitations, no syncope. PULMONARY: As mentioned in HPI GASTROINTESTINAL: No diarrhea, no nausea, no vomiting, no abdominal pain. NEUROLOGICAL: No headaches, no weakness, no numbness. HEMATOLOGICAL: Denies any bleeding or petechiae. GENITOURINARY: Denies any burning micturition, frequency, or urgency. MUSCULOSKELETAL/RHEUMATOLOGICAL: Denies any joint pain, swelling, or any muscle pain. ENDOCRINE: Denies any polyuria or polydipsia. The rest of the 14-point review of systems is negative. PHYSICAL EXAMINATION: GENERAL: The patient is alert and oriented x3, not in any acute distress. Well developed, well nourished. HEENT: Pupils are round and equally reacting to light. EOMI. No scleral icterus. No conjunctival pallor. Normocephalic, atraumatic. No pharyngeal erythema. No thyromegaly. CARDIOVASCULAR: S1 and S2 present. No murmurs, rubs, or gallops. Systolic murmur PULMONARY: Chest is clear to auscultation, no wheezing or crackles. ABDOMEN: Soft, nontender, nondistended, normoactive bowel sounds. No palpable organomegaly. MUSCULOSKELETAL: No joint swelling or deformity. EXTREMITIES: No cyanosis, clubbing, or pedal edema. NEUROLOGICAL: Gross neurological examination did not reveal any focal deficits. SKIN: No rashes. Assessment and plan -Acute hypoxic respiratory failure: Secondary to cut his heart failure chronic diastolic dysfunction with acute exacerbation along with aortic stenosis. Patient doesn't appear to be in COPD exacerbation at this time -COPD without any significant exacerbation patient will not benefit from any systemic steroids may concern for pneumonia is low antibiotics will be discontinued after negative the pro-calcitonin levels -Hypervolemic hyponatremia expected improved with IV Lasix -Continue nicotine use: Counseling was provided -Atrial fibrillation: Patient will be resumed on metoprolol and anticoagulation Hyperleukocytosis: Reactive without any clinical evidence of infection at this time DVT prophylaxis: On Eliquis which is being resumed Past Medical History Past Medical History: Heart Failure Additional Past Medical History / Comment(s): COPD, 2 pack per day smoker for 20 years, patient drinks 6 cans of beer daily History of Any Multi-Drug Resistant Organisms: None Reported Past Surgical History: Unable to Obtain Additional Past Surgical History / Comment(s): Hernia Past Psychological History: No Psychological Hx Reported Smoking Status: Former smoker Past Alcohol Use History: Daily, Heavy Past Drug Use History: None Reported - Past Family History Mother Family Medical History: Diabetes Mellitus Father Family Medical History: Cancer Additional Family Medical History / Comment(s): from lung cancer Medications and Allergies Home Medications Medication Instructions Recorded Confirmed Type Apixaban [Eliquis] 5 mg PO BID@0800,199903/09/21 03/14/21 History Aspirin 81 mg PO DAILY@0800 03/09/21 03/14/21 History Docusate [Colace] 100 mg PO BID@0800,1600 03/09/21 03/14/21 History Metoprolol Tartrate [Lopressor] 25 mg PO BID@0800,1600 03/09/21 03/14/21 History Tiotropium 2.5 Mcg/Puff [Spiriva 2 puff INHALATION RT-DAILY@0800 03/09/21 03/14/21 History Respimat 2.5 Mcg] Allergies Allergy/AdvReac Type Severity Reaction Status Date / Time No Known Allergies Allergy Verified 03/14/21 07:09 Physical Exam Vitals: Vital Signs Temp Pulse Resp BP Pulse Ox 03/14/21 11:27 112 H 98 03/14/21 11:18 114 H 03/14/21 09:45 105 H 22 102/69 100 03/14/21 08:13 98.7 F 106 H 24 101/62 100 03/14/21 07:36 98 03/14/21 07:26 100 03/14/21 04:07 106 H 16 129/72 99 03/14/21 03:32 105 H 03/14/21 03:16 103 H 03/14/21 01:37 111 H 20 112/71 96 03/14/21 01:02 119 H 03/14/21 01:01 115 H 20 99/65 98 03/14/21 00:53 29 H 03/14/21 00:49 119 H 03/14/21 00:47 121 H 25 H 128/84 95 03/14/21 00:24 97.3 F L 118 H 25 H 136/85 97 Intake and Output 03/13/21 03/14/21 03/14/21 22:59 06:59 14:59 Other: Weight 68.039 kg Results CBC & Chem 7: 03/14/21 00:37 03/14/21 00:37 Labs: Abnormal Lab Results - Last 24 Hours (Table) 03/14/21 03/14/21 03/14/21 Range/Units 00:37 00:37 00:37 WBC 16.0 H (3.8-10.6) k/uL RBC 3.39 L (4.30-5.90) m/uL Hgb 11.5 L (13.0-17.5) gm/dL Hct 33.4 L (39.0-53.0) % RDW 15.7 H (11.5-15.5) % Neutrophils # 13.7 H (1.3-7.7) k/uL Sodium 124 L (137-145) mmol/L Chloride 97 L (98-107) mmol/L Carbon Dioxide 21 L (22-30) mmol/L BUN 23 H (9-20) mg/dL Glucose 259 H (74-99) mg/dL Plasma Lactic Acid Ivan 2.3 H* (0.7-2.0) mmol/L Calcium 7.7 L (8.4-10.2) mg/dL Magnesium 2.4 H (1.6-2.3) mg/dL Total Protein 5.6 L (6.3-8.2) g/dL Albumin 3.1 L (3.5-5.0) g/dL
[2021-03-14] MEDS: METOPROLOL TARTRATE 25 MG TAB PO SCH (17:12)
[2021-03-14] MEDS: DOCUSATE 100 MG CAP PO SCH (17:13)
[2021-03-14] MEDS ORDERED: IPRATROPIUM-ALBUTEROL 3 ML NEB INHALATION PRN (18:48)
[2021-03-14] MEDS: APIXABAN 5 MG TAB PO SCH (20:37)
[2021-03-14] MEDS: FUROSEMIDE 10 MG/ML 4 ML VIAL IV SCH (20:37)
[2021-03-15] MEDS ORDERED: LEVOFLOXACIN 750MG-D5W PMX 750 MG in DEXTROSE/WATER 1 150ML.BAG IVPB SCH (03:00)
[2021-03-15 07:45] LABS: Anisocytosis Slight; Basophils % (A) 0 %; Eosinophils # (A) 0.1 k/uL (0-0.7); Eosinophils % (A) 1 %; HCT 24.6 % (39.0-53.0); Lymphocytes # (A) 1.4 k/uL (1.0-4.8); Lymphocytes % (A) 15 %; MCH 34.4 pg (25.0-35.0); MCHC 33.5 g/dL (31.0-37.0); MCV 102.6 fL (80.0-100.0); Macrocytosis Moderate; Mean Platelet Volume 7.2; Monocytes # (A) 0.8 k/uL (0-1.0); Monocytes % (A) 8 %; Neutrophils # (A) 6.9 k/uL (1.3-7.7); Neutrophils % (A) 74 %; Platelet Count 309 k/uL (150-450); RDW 17.4 % (11.5-15.5); WBC 9.3 k/uL (3.8-10.6)
[2021-03-15 07:46] LABS: HGB 8.2 gm/dL (13.0-17.5)
[2021-03-15 07:51] LABS: ALT 16 U/L (4-49); AST 21 U/L (17-59); African American GFR (CKD) >90 (>60 ml/min/1.73 sqM); Albumin 2.7 g/dL (3.5-5.0); Alkaline Phosphatase 61 U/L (38-126); Anion Gap 3 mmol/L; Blood Urea Nitrogen 20 mg/dL (9-20); Calcium 7.6 mg/dL (8.4-10.2); Carbon Dioxide 29 mmol/L (22-30); Chloride 98 mmol/L (98-107); Glucose 106 mg/dL (74-99); Magnesium 2.4 mg/dL (1.6-2.3); Non-African American GFR(CKD) >90 (>60 ml/min/1.73 sqM); Phosphorus 2.9 mg/dL (2.5-4.5); Potassium 4.2 mmol/L (3.5-5.1); Sodium 130 mmol/L (137-145); Total Bilirubin 0.4 mg/dL (0.2-1.3)
[2021-03-15] MEDS ORDERED: ASPIRIN 81 MG PO SCH (08:00)
[2021-03-15] MEDS: IPRATROPIUM-ALBUTEROL 3 ML NEB INHALATION SCH ×4 (08:15→19:52)
[2021-03-15] MEDS: TIOTROPIUM 2.5 MCG INHALER INHALATION SCH (08:16)
[2021-03-15] MEDS: APIXABAN 5 MG TAB PO SCH ×2 (09:04→09:11)
[2021-03-15] MEDS: FUROSEMIDE 10 MG/ML 4 ML VIAL IV SCH ×2 (09:04→23:56)
[2021-03-15] MEDS: METOPROLOL TARTRATE 25 MG TAB PO SCH ×2 (09:04→15:56)
[2021-03-15] MEDS: DOCUSATE 100 MG CAP PO SCH ×2 (09:04→15:57)
[2021-03-15 12:07] VITALS: RESP 18
[2021-03-15 13:07] LABS: Anisocytosis Slight; Basophils % (A) 0 %; Eosinophils # (A) 0.2 k/uL (0-0.7); Eosinophils % (A) 1 %; HCT 24.8 % (39.0-53.0); HGB 8.7 gm/dL (13.0-17.5); Lymphocytes # (A) 1.5 k/uL (1.0-4.8); Lymphocytes % (A) 14 %; MCH 34.9 pg (25.0-35.0); MCHC 35.1 g/dL (31.0-37.0); MCV 99.3 fL (80.0-100.0); Macrocytosis Slight; Monocytes % (A) 9 %; Neutrophils % (A) 74 %; Platelet Count 303 k/uL (150-450); RDW 16.6 % (11.5-15.5); WBC 10.8 k/uL (3.8-10.6)
--- NOTE | 2021-03-15 13:42 | P.PN ---
Subjective Progress Note Date: 03/15/21 HISTORY OF PRESENT ILLNESS: This is a 70-year-old male who does not follow with a rental sales representative. Patient states he used to see Dr. Fatima about 5 years ago. Patient is admitted to the hospital secondary to congestive heart failure and COPD. Patient remains on IV Lasix 40 mg every 12 hours. Creatinine stable at 0.76. Fluid balance over the last 24 hours is 780 mL. Echocardiogram completed revealed ejection fraction 50-55% with severe aortic stenosis. Patient's hemoglobin yesterday 11.5. Hemoglobin today 8.2. Patient denies any signs or symptoms of bleeding. He does report having some blood in his stool a few weeks ago at home. Patient is unsure of the reason why he is on Eliquis. He thinks he may have had a DVT in the past but is not sure. PHYSICAL EXAM: VITAL SIGNS: Reviewed. GENERAL: Well-developed in no acute distress. NECK: Supple. No JVD or thyromegaly LUNGS: Respirations even and unlabored. Lungs diminished bilaterally HEART: Regular rate and rhythm. S1 and S2 heard. Systolic murmur. EXTREMITIES: Normal range of motion. No clubbing or cyanosis. Peripheral pulses intact. Trace lower extremity edema ASSESSMENT: Shortness of breath Acute COPD exacerbation Acute diastolic congestive heart failure Severe aortic stenosis Anemia, etiology unclear PLAN: Patient is on long-term anticoagulation however it is unknown the reason for this. The patient denies a history of atrial fibrillation. He thinks he may have had a DVT in the past but he is unsure. In lieu of patient's 3 g drop in hemoglobin, we will discontinue Eliquis and aspirin at this time. Repeat hemoglobin at 1300. Obtain records from patient's old rental sales representative to see if there is any documentation of why the patient is on Eliquis. Continue IV lasix Further recommendations pending patient course Nurse practitioner note has been reviewed by physician. Signing provider agrees with the documented findings, assessment, and plan of care. Objective - Vital Signs Vital signs: Vital Signs Temp 97.4 F L 03/15/21 12:00 Pulse 82 03/15/21 12:06 Resp 18 03/15/21 12:06 BP 100/59 03/15/21 12:00 Pulse Ox 100 03/15/21 12:00 Intake & Output 03/14/21 03/15/21 03/15/21 18:59 06:59 18:59 Intake Total 120 240 Output Total 900 1550 Balance -780 -1310 Weight 68.039 kg Intake: Oral 120 240 Output: Urine 900 1550 Other: Voiding Method Urinal - Labs CBC & Chem 7: 03/15/21 12:43 03/15/21 06:53 Labs: Abnormal Lab Results - Last 24 Hours (Table) 03/14/21 03/15/21 03/15/21 Range/Units 00:37 06:53 06:53 WBC (3.8-10.6) k/uL RBC 2.40 L (4.30-5.90) m/uL Hgb 8.2 L D (13.0-17.5) gm/dL Hct 24.6 L (39.0-53.0) % MCV 102.6 H (80.0-100.0) fL RDW 17.4 H (11.5-15.5) % Neutrophils # (1.3-7.7) k/uL Sodium 130 L (137-145) mmol/L Glucose 106 H (74-99) mg/dL Calcium 7.6 L (8.4-10.2) mg/dL Magnesium 2.4 H (1.6-2.3) mg/dL Total Protein 5.0 L (6.3-8.2) g/dL Albumin 2.7 L (3.5-5.0) g/dL Procalcitonin 0.13 H (0.02-0.09) ng/mL 03/15/21 Range/Units 12:43 WBC 10.8 H (3.8-10.6) k/uL RBC 2.50 L (4.30-5.90) m/uL Hgb 8.7 L (13.0-17.5) gm/dL Hct 24.8 L (39.0-53.0) % MCV (80.0-100.0) fL RDW 16.6 H (11.5-15.5) % Neutrophils # 8.0 H (1.3-7.7) k/uL Sodium (137-145) mmol/L Glucose (74-99) mg/dL Calcium (8.4-10.2) mg/dL Magnesium (1.6-2.3) mg/dL Total Protein (6.3-8.2) g/dL Albumin (3.5-5.0) g/dL Procalcitonin (0.02-0.09) ng/mL
--- NOTE | 2021-03-15 23:14 | P.PN ---
Subjective Progress Note Date: 03/15/21 Patient is a 70-year-old male with known history of aortic stenosis, I start failure chronic diastolic dysfunction was recently discharged from hospital after he was treated for heart failure exacerbation comes back again with shortness of breath does admit to orthopnea and denied any significant history o f paroxysmal nocturnal dyspnea. Patient BNP is highly elevated at this time which was elevated during his last hospitalization as well. Patient is hyponatremic as well as chest x-ray is consistent with congestive heart failure. Patient does have leukocytosis no fever patient was started on Zosyn and levofloxacin probably not necessary. I dyspnea Zosyn. I'll obtain pro- calcitonin level if that's negative or low and Lasix will be discontinued at that time. Patient will be started on scheduled Lasix patient did have improvement in urine output and respiratory status improvement after a small dose of Lasix. Patient appears to be noncompliant with his diet. 03/15/2021 Patient evaluated today resting in bed. He states he quit smoking since his last admission, and plans to try to stop or atleast cut back some. Patient is on IV lasix currently. Hemoglobin has dropped down to 8.7, which is down about 3 grams, eliquis and aspirin were placed on hold by cardiology. Additional labs today include WBC of 10.8, sodium 130, potassium 4.2. Vitals: Temp 98, heart rate 84, sinus rhythm, blood pressure 88/37, 97% on 4L NC. Pending reports from previous cardiology history to determine why patient was taking eliquis in the past, he is unsure regarding history of atrial fibrillation, but also thinks he may have had a DVT in the past. Plan is for rehab on discharge once medically cleared. REVIEW OF SYSTEMS: CONSTITUTIONAL: No fever, no malaise, no fatigue. HEENT: No recent visual problems or hearing problems. Denied any sore throat. CARDIOVASCULAR: Denies chest pain, chest pressure, or palpitations PULMONARY: Reports shortness of breath with exertion, mild non-productive congested cough GASTROINTESTINAL: No diarrhea, no nausea, no vomiting, no abdominal pain. All medications were reviewed. PHYSICAL EXAMINATION: GENERAL: The patient is alert and oriented x3, not in any acute distress. Well developed, well nourished. HEENT: Pupils are round and equally reacting to light. EOMI. No scleral icterus. No conjunctival pallor. Normocephalic, atraumatic. No pharyngeal erythema. No thyromegaly. CARDIOVASCULAR: S1 and S2 present. No murmurs, rubs, or gallops. Systolic murmur PULMONARY: There are crackles to the left lung base. ABDOMEN: Soft, nontender, nondistended, normoactive bowel sounds. No palpable organomegaly. MUSCULOSKELETAL: No joint swelling or deformity. EXTREMITIES: No cyanosis, clubbing, or pedal edema. NEUROLOGICAL: Gross neurological examination did not reveal any focal deficits. SKIN: No rashes. Assessment and plan -Acute hypoxic respiratory failure: Secondary to congestive heart failure chronic diastolic dysfunction with acute exacerbation along with aortic stenosis. Patient doesn't appear to be in COPD exacerbation at this time -COPD without any significant exacerbation -Hypervolemic hyponatremia, currently 130, improving with IV lasix. -Anemia, unclear etiology, repeat labs in the morning. -Chronic nicotine use: Counseling was provided -Possible paroxysmal atrial fibrillation, eliquis O/H, continue metoprolol -Leukocytosis: Reactive without any clinical evidence of infection at this time DVT prophylaxis: Aspirin and Eliquis on hold due to changes in hemoglobin GI Prophylaxis: Protonix Objective - Vital Signs Vital signs: Vital Signs Temp 97.4 F L 03/15/21 12:00 Pulse 90 03/15/21 14:00 Resp 18 03/15/21 14:00 BP 100/59 03/15/21 12:00 Pulse Ox 100 03/15/21 12:00 Intake & Output 03/14/21 03/15/21 03/15/21 18:59 06:59 18:59 Intake Total 120 480 Output Total 900 1550 Balance -780 -1070 Weight 68.039 kg Intake: Oral 120 480 Output: Urine 900 1550 Other: Voiding Method Urinal - Labs CBC & Chem 7: 03/15/21 12:43 03/15/21 06:53 Labs: Abnormal Lab Results - Last 24 Hours (Table) 03/14/21 03/15/21 03/15/21 Range/Units 00:37 06:53 06:53 WBC (3.8-10.6) k/uL RBC 2.40 L (4.30-5.90) m/uL Hgb 8.2 L D (13.0-17.5) gm/dL Hct 24.6 L (39.0-53.0) % MCV 102.6 H (80.0-100.0) fL RDW 17.4 H (11.5-15.5) % Neutrophils # (1.3-7.7) k/uL Sodium 130 L (137-145) mmol/L Glucose 106 H (74-99) mg/dL Calcium 7.6 L (8.4-10.2) mg/dL Magnesium 2.4 H (1.6-2.3) mg/dL Total Protein 5.0 L (6.3-8.2) g/dL Albumin 2.7 L (3.5-5.0) g/dL Procalcitonin 0.13 H (0.02-0.09) ng/mL 03/15/21 Range/Units 12:43 WBC 10.8 H (3.8-10.6) k/uL RBC 2.50 L (4.30-5.90) m/uL Hgb 8.7 L (13.0-17.5) gm/dL Hct 24.8 L (39.0-53.0) % MCV (80.0-100.0) fL RDW 16.6 H (11.5-15.5) % Neutrophils # 8.0 H (1.3-7.7) k/uL Sodium (137-145) mmol/L Glucose (74-99) mg/dL Calcium (8.4-10.2) mg/dL Magnesium (1.6-2.3) mg/dL Total Protein (6.3-8.2) g/dL Albumin (3.5-5.0) g/dL Procalcitonin (0.02-0.09) ng/mL Assessment and Plan Time with Patient: Greater than 30
[2021-03-16] MEDS: IPRATROPIUM-ALBUTEROL 3 ML NEB INHALATION SCH ×2 (08:29→13:05)
[2021-03-16] MEDS: TIOTROPIUM 2.5 MCG INHALER INHALATION SCH (08:29)
[2021-03-16 08:53] LABS: African American GFR (CKD) >90 (>60 ml/min/1.73 sqM); Anion Gap 4 mmol/L; Blood Urea Nitrogen 19 mg/dL (9-20); Carbon Dioxide 30 mmol/L (22-30); Chloride 96 mmol/L (98-107); Glucose 93 mg/dL (74-99); Non-African American GFR(CKD) 84 (>60 ml/min/1.73 sqM); Potassium 3.7 mmol/L (3.5-5.1); Sodium 130 mmol/L (137-145)
[2021-03-16 08:56] LABS: Anisocytosis Slight; Basophils % (A) 0 %; Eosinophils # (A) 0.2 k/uL (0-0.7); Eosinophils % (A) 3 %; HCT 25.8 % (39.0-53.0); HGB 8.8 gm/dL (13.0-17.5); Lymphocytes # (A) 1.2 k/uL (1.0-4.8); Lymphocytes % (A) 15 %; MCH 34.6 pg (25.0-35.0); MCHC 34.2 g/dL (31.0-37.0); MCV 101.2 fL (80.0-100.0); Macrocytosis Moderate; Mean Platelet Volume 7.5; Monocytes # (A) 0.8 k/uL (0-1.0); Monocytes % (A) 9 %; Neutrophils # (A) 5.7 k/uL (1.3-7.7); Neutrophils % (A) 70 %; Platelet Count 310 k/uL (150-450); RBC 2.55 m/uL (4.30-5.90); RDW 17.4 % (11.5-15.5); WBC 8.2 k/uL (3.8-10.6)
[2021-03-16] MEDS ORDERED: PANTOPRAZOLE 40 MG/10 ML VIAL IVP SCH (09:00)
[2021-03-16] MEDS: FUROSEMIDE 10 MG/ML 4 ML VIAL IV SCH (09:56)
[2021-03-16] MEDS: METOPROLOL TARTRATE 25 MG TAB PO SCH (09:56)
[2021-03-16] MEDS: DOCUSATE 100 MG CAP PO SCH (09:56)
[2021-03-16 10:24] VITALS: PULSE 108; TEMP 98
[2021-03-16 12:17] VITALS: BP 94/64
--- NOTE | 2021-03-16 12:48 | P.PN ---
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 Patient states he used to see Dr. Fatima about 5 years ago. Patient is admitted to the hospital secondary to congestive heart failure and COPD. Patient remains on IV Lasix 40 mg every 12 hours. Creatinine stable at 0.76. Fluid balance over the last 24 hours is 780 mL. Echocardiogram completed revealed ejection fraction 50-55% with severe aortic stenosis. Patient's hemoglobin yesterday 11.5. Hemoglobin today 8.2. Patient denies any signs or symptoms of bleeding. He does report having some blood in his stool a few weeks ago at home. Patient is unsure of the reason why he is on Eliquis. He thinks he may have had a DVT in the past but is not sure. 03/16/2021 Patient examined at the bedside. Patient denies chest pain or pressure. Denies shortness of breath. Records obtained from Dr. Long office with no documentation of why the patient is on Eliquis. There is no documentation of the patient having atrial fibrillation or DVT/PE. Hemoglobin 8.0. PHYSICAL EXAM: VITAL SIGNS: Reviewed. GENERAL: Well-developed in no acute distress. NECK: Supple. No JVD or thyromegaly LUNGS: Respirations even and unlabored. Lungs diminished bilaterally HEART: Regular rate and rhythm. S1 and S2 heard. Systolic murmur. EXTREMITIES: Normal range of motion. No clubbing or cyanosis. Peripheral pulses intact. Trace lower extremity edema ASSESSMENT: Shortness of breath Acute COPD exacerbation Acute diastolic congestive heart failure Severe aortic stenosis Anemia, etiology unclear PLAN: Per Dr. Porter, continue to hold Eliquis and aspirin Discontinue IV lasix. Begin oral lasix. Further recommendations pending patient course Nurse practitioner note has been reviewed by physician. Signing provider agrees with the documented findings, assessment, and plan of care. Objective - Vital Signs Vital signs: Vital Signs Temp 98 F 03/16/21 12:00 Pulse 108 H 03/16/21 12:00 Resp 18 03/16/21 12:00 BP 94/64 03/16/21 12:00 Pulse Ox 97 03/16/21 12:00 Intake & Output 03/15/21 03/16/21 03/16/21 18:59 06:59 18:59 Intake Total 720 118 Output Total 1949 1949 350 Balance -[id number] Weight 69.5 kg Intake: Oral 720 118 Output: Urine 1949 1949 350 Other: Voiding Method Urinal Urinal - Labs CBC & Chem 7: 03/16/21 07:44 03/16/21 07:44 Labs: Abnormal Lab Results - Last 24 Hours (Table) 03/15/21 03/16/21 03/16/21 Range/Units 12:43 07:44 07:44 WBC 10.8 H (3.8-10.6) k/uL RBC 2.50 L 2.55 L (4.30-5.90) m/uL Hgb 8.7 L 8.8 L (13.0-17.5) gm/dL Hct 24.8 L 25.8 L (39.0-53.0) % MCV 101.2 H (80.0-100.0) fL RDW 16.6 H 17.4 H (11.5-15.5) % Neutrophils # 8.0 H (1.3-7.7) k/uL Sodium 130 L (137-145) mmol/L Chloride 96 L (98-107) mmol/L Calcium 8.0 L (8.4-10.2) mg/dL Microbiology - Last 24 Hours (Table) 03/15/21 06:53 Blood Culture - Preliminary Blood No Growth after 24 hours
[2021-03-16] MEDS ORDERED: POTASSIUM CHLORIDE ER 20 MEQ TAB.ER PO STA (13:18)
--- NOTE | 2021-03-16 13:18 | P.DS ---
Providers Date of admission: 03/14/21 02:04 Attending physician: Abelino Montoya Consults: 03/14/21 02:05 Consult Physician Routine Consulting Provider: Tali Meadows Consult Reason/Comments: chf Do you want consulting provider notified?: Yes Primary care physician: [facility] Hospital Course: Final Diagnosis -Acute hypoxic respiratory failure: Secondary to congestive heart failure chronic diastolic dysfunction with acute exacerbation along with aortic stenosis. -COPD without any significant exacerbation -Hypervolemic hyponatremia, currently 130 -Anemia, unclear etiology, workup outpatient -Chronic nicotine use: Counseling was provided Discharge Disposition Patient is cleared medically for discharge to rehab. Cleared by cardiology to follow up outpatient. Eliquis and Aspirin are stopped on discharge, as reports were obtained from previous cardiology and there is no documentation or evidence of atrial fibrillation. Repeat CBC and BMP in 2-3 days. Hospital Course Patient was readmitted to the hospital from rehab after significant shortness of breath. This patient is a known history of aortic stenosis and chronic diastolic dysfunction. He was recently treated for heart failure exacerbation the hospital and discharged back to rehab. Admission BNP was somewhat elevated at 8540 which was elevated previous admission to pro-calcitonin 0.13, so suspicion for underlying bacterial etiology. Chest x-ray this admission shows pulmonary edema symmetrical exam, bilateral pleural effusions, related to pulmonary fibrosis and acute superimposed interstitial pneumonia. Sodium on admission was 124, white count 16, hemoglobin 11.5. Patient was diuresed with IV Lasix, and evaluated by cardiology. He was transitioned to oral lasix BID and cleared from cardiology for discharge back to rehab. Patient currently denies any chest pain, chest pressure, palpitations. He denies any cough or shortness of breath. Counseling on smoking cessation. Vital signs 98, heart rate 80 sinus rhythm, blood pressure 94/64 and he is 97% on 3 L nasal cannula, which is baseline. 03/16/2021 Lung sounds are improved, there is increased aeration. S1, S2, no murmur noted. Abdomen is soft and nontender, denies nausea, vomiting, or diarrhea. Patient is stable for discharge back to [facility] on oral lasix. Continue with smoking cessation. Labs today show a hemogblobin stable at 8.8, no signs of active bleeding. WBC improved to 8.2, sodium stable at 130, potassium 3.7. Vital signs are stable. Thank you for allowing us to participate in the care of this patient. Patient Condition at Discharge: Fair Plan - Discharge Summary New Discharge Prescriptions: New Ipratropium-Albuterol Nebulize [Duoneb 0.5 mg-3 mg/3 ml Soln] 3 ml INHALATION RT-QID ml Ipratropium-Albuterol Nebulize [Duoneb 0.5 mg-3 mg/3 ml Soln] 3 ml INHALATION RT-Q2H PRN ml PRN Reason: Shortness Of Breath Or Wheezing Furosemide [Lasix] 40 mg PO BID@0900,1600 #180 tab Pantoprazole [Protonix] 40 mg PO DAILY #30 tab Continue Tiotropium 2.5 Mcg/Puff [Spiriva Respimat 2.5 Mcg] 2 puff INHALATION RT- DAILY@0800 Metoprolol Tartrate [Lopressor] 25 mg PO BID@0800,1600 Docusate [Colace] 100 mg PO BID@0800,1600 Discontinued Apixaban [Eliquis] 5 mg PO BID@0800,1999 Aspirin 81 mg PO DAILY@0800 Discharge Medication List Docusate [Colace] 100 mg PO BID@0800,1600 03/09/21 [History] Metoprolol Tartrate [Lopressor] 25 mg PO BID@0800,1600 03/09/21 [History] Tiotropium 2.5 Mcg/Puff [Spiriva Respimat 2.5 Mcg] 2 puff INHALATION RT- DAILY@0800 03/09/21 [History] Furosemide [Lasix] 40 mg PO BID@0900,1600 #180 tab 03/16/21 [Rx] Ipratropium-Albuterol Nebulize [Duoneb 0.5 mg-3 mg/3 ml Soln] 3 ml INHALATION RT-Q2H PRN ml 03/16/21 [Rx] Ipratropium-Albuterol Nebulize [Duoneb 0.5 mg-3 mg/3 ml Soln] 3 ml INHALATION RT-QID ml 03/16/21 [Rx] Pantoprazole [Protonix] 40 mg PO DAILY #30 tab 03/16/21 [Rx] Follow up Appointment(s)/Referral(s): [facility],Clinic [Primary Care Provider] - 1-2 days (please call to make an appointment) Ambulatory/Diagnostic Orders: Basic Metabolic Panel [LAB.AMB] Time Frame: 2 Days, Location: None Selected Complete Blood Count w/diff [LAB.AMB] Time Frame: 2 Days, Location: None Selected Patient Instructions/Handouts: Heart Failure (DC), COPD (Chronic Obstructive Pulmonary Disease) (DC) Discharge Disposition: TRANSFER TO SNF/ECF
[2021-03-16] MEDS ORDERED: FUROSEMIDE 40 MG TAB PO SCH (16:00)
== END 2021-03-16 15:46 | DRG 291 ==
LOC: EC 00:23 → 3SCARD 02:04
PROVIDERS: ADMIT Hospitalist; ATTEND Hospitalist
DX: I50.33 Acute on chronic diastolic (congestive) heart failure (principal); J96.01 Acute respiratory failure with hypoxia; E87.1 Hypo-osmolality and hyponatremia; J43.9 Emphysema, unspecified; D64.9 Anemia, unspecified; D72.829 Elevated white blood cell count, unspecified; F10.10 Alcohol abuse, uncomplicated; Z71.6 Tobacco abuse counseling; F17.210 Nicotine dependence, cigarettes, uncomplicated; E86.1 Hypovolemia; I35.0 Nonrheumatic aortic (valve) stenosis; J84.10 Pulmonary fibrosis, unspecified; Z79.01 Long term (current) use of anticoagulants; Z79.82 Long term (current) use of aspirin; Z79.899 Other long term (current) drug therapy; Z80.1 Family history of malignant neoplasm of trachea, bronchus and lung; Z83.3 Family history of diabetes mellitus; Z91.19 Patient's noncompliance with other medical treatment and regimen; Z20.822 Contact with and (suspected) exposure to COVID-19
CPT/HCPCS: 36415; 71045; 80048; 80053; 83605; 83735; 83880; 84100; 84145; 84484; 85025; 85610; 85730; 87040; 87635; 93005; 94640; 94660; 96365; 96366; 96367; 96375; 99285

== ENCOUNTER 2021-03-18 18:12 | Inpatient (IN) | payer MEDICARE ==
[2021-03-18] MEDS ORDERED: methylPREDNISolone SOD SUCCI 125 MG/2 ML VIAL IV STA (18:22)
[2021-03-18] MEDS ORDERED: ALBUTEROL NEBULIZED 2.5 MG/3 ML INHALATION STA (18:22)
--- NOTE | 2021-03-18 18:29 | ED ---
General Adult HPI - General Chief complaint: Shortness of Breath Stated complaint: PRASANNA Time Seen by Provider: 03/18/21 18:21 Source: patient, RN notes reviewed Mode of arrival: ambulatory Limitations: no limitations - History of Present Illness Initial comments: Patient is a pleasant 70-year-old male presenting to the emergency department with dyspnea. Patient does have history of COPD and heart failure and previous respiratory failure. Onset of symptoms was a couple of days ago. EMS did attempt CPAP however that did not work well and they did help assist respirations in route. Patient is breathing on his own at this time and answers 1 word questions. No recent fever. No leg pain or leg swelling. No chest pain. Patient does have occasional cough. - Related Data Home Medications Medication Instructions Recorded Confirmed Docusate [Colace] 100 mg PO BID@0800,1600 03/09/21 03/18/21 Metoprolol Tartrate [Lopressor] 25 mg PO BID@0800,1600 03/09/21 03/18/21 Tiotropium 2.5 Mcg/Puff [Spiriva 2 puff INHALATION RT-DAILY 03/09/21 03/18/21 Respimat 2.5 Mcg] Furosemide [Lasix] 40 mg PO BID@0800,1600 03/18/21 03/18/21 Ipratropium-Albuterol Nebulize 3 ml INHALATION RT-Q4H 03/18/21 03/18/21 [Duoneb 0.5 mg-3 mg/3 ml Soln] Omeprazole 20 mg PO HS 03/18/21 03/18/21 Previous Rx's Medication Instructions Recorded Ipratropium-Albuterol Nebulize 3 ml INHALATION RT-Q2H PRN ml 03/16/21 [Duoneb 0.5 mg-3 mg/3 ml Soln] Allergies Allergy/AdvReac Type Severity Reaction Status Date / Time No Known Allergies Allergy Verified 03/18/21 19:30 Review of Systems ROS Statement: Those systems with pertinent positive or pertinent negative responses have been documented in the HPI. ROS Other: All systems not noted in ROS Statement are negative. Constitutional: Denies: fever Eyes: Denies: eye pain ENT: Denies: ear pain Respiratory: Reports: as per HPI, dyspnea Cardiovascular: Denies: chest pain Endocrine: Reports: fatigue Gastrointestinal: Denies: abdominal pain Genitourinary: Denies: dysuria Musculoskeletal: Denies: back pain Skin: Denies: rash Neurological: Denies: weakness Past Medical History Past Medical History: Heart Failure Additional Past Medical History / Comment(s): COPD, 2 pack per day smoker for 20 years, patient drinks 6 cans of beer daily History of Any Multi-Drug Resistant Organisms: None Reported Past Surgical History: Unable to Obtain Additional Past Surgical History / Comment(s): Hernia Past Anesthesia/Blood Transfusion Reactions: No Reported Reaction Past Psychological History: No Psychological Hx Reported Smoking Status: Former smoker Past Alcohol Use History: Daily, Heavy Past Drug Use History: None Reported - Past Family History Mother Family Medical History: Diabetes Mellitus Father Family Medical History: Cancer Additional Family Medical History / Comment(s): from lung cancer General Exam Limitations: no limitations General appearance: alert, in distress Head exam: Present: normocephalic Eye exam: Present: normal appearance Neck exam: Present: normal inspection Respiratory exam: Present: respiratory distress, wheezes, decreased breath sounds Cardiovascular Exam: Present: tachycardia GI/Abdominal exam: Present: soft. Absent: tenderness Extremities exam: Present: normal inspection. Absent: pedal edema, calf te nderness Neurological exam: Present: alert Psychiatric exam: Present: normal affect, normal mood Skin exam: Present: normal color Course Vital Signs 03/18/21 03/18/21 03/18/21 18:14 18:15 18:23 Temperature 98.7 F Pulse Rate 142 H 144 H Pulse Rate [ 144 H [employer] ] Respiratory 40 H 40 H 37 H Rate Blood Pressure 132/87 162/70 O2 Sat by Pulse 87 L 96 Oximetry 03/18/21 03/18/21 03/18/21 18:37 18:45 18:59 Temperature Pulse Rate 144 H 140 H Pulse Rate [ [employer] ] Respiratory 36 H Rate Blood Pressure O2 Sat by Pulse 97 Oximetry 03/18/21 03/18/21 19:12 20:33 Temperature Pulse Rate 140 H 130 H Pulse Rate [ [employer] ] Respiratory 24 Rate Blood Pressure 90/58 O2 Sat by Pulse 96 Oximetry - Reevaluation(s) Reevaluation #1: 03/18/21 19:23 Patient reevaluated twice only with minimal improvement with BiPAP. Patient remains tachycardic into. Family is present and updated. Both are agreeable to intubation. 03/18/21 20:07 Patient again reevaluated and now is having some more significant improvement. Respiratory rate has improved. Respiratory distress has decreased. Heart rate has improved from 144 to 132. Patient states he is feeling more comfortable and would like to hold off on intubation at this point. 03/18/21 22:00 Patient was again reevaluated and further improved. 98% on BiPAP. No respiratory distress. Heart rate has improved to 118. Case was earlier discussed with Dr. Keen. Case was also discussed with practitioner Aleyda, covering for Dr. Montoya, who will admit for this va patient. EKG Findings - EKG Comments: EKG Findings:: Sinus tachycardia rate 144. TX 144. QRS 84. QT to 72. QTC 421. Normal axis. LVH with repolarization changes. Medical Decision Making - Lab Data Result diagrams: 03/18/21 18:28 03/18/21 18:28 Lab Results 03/18/21 03/18/21 03/18/21 Range/Units 18:28 18:28 18:28 WBC 11.5 H (3.8-10.6) k/uL RBC 2.95 L (4.30-5.90) m/uL Hgb 10.4 L (13.0-17.5) gm/dL Hct 31.2 L (39.0-53.0) % MCV 106.0 H (80.0-100.0) fL MCH 35.2 H (25.0-35.0) pg MCHC 33.2 (31.0-37.0) g/dL RDW 17.3 H (11.5-15.5) % Plt Count 384 (150-450) k/uL MPV 7.9 Neutrophils % 69 % Lymphocytes % 19 % Monocytes % 7 % Eosinophils % 3 % Basophils % 1 % Neutrophils # 8.0 H (1.3-7.7) k/uL Lymphocytes # 2.1 (1.0-4.8) k/uL Monocytes # 0.8 (0-1.0) k/uL Eosinophils # 0.3 (0-0.7) k/uL Basophils # 0.1 (0-0.2) k/uL Anisocytosis Slight Macrocytosis Marked A PT 9.8 (9.0-12.0) sec INR 0.9 (<1.2) APTT 21.4 L (22.0-30.0) sec Sodium 129 L (137-145) mmol/L Potassium 5.2 H (3.5-5.1) mmol/L Chloride 98 (98-107) mmol/L Carbon Dioxide 21 L (22-30) mmol/L Anion Gap 10 mmol/L BUN 15 (9-20) mg/dL Creatinine 0.78 (0.66-1.25) mg/dL Est GFR (CKD-EPI)AfAm >90 (>60 ml/min/1.73 sqM) Est GFR (CKD-EPI)NonAf >90 (>60 ml/min/1.73 sqM) Glucose 317 H (74-99) mg/dL Lactic Ac Sepsis Rflx Plasma Lactic Acid Ivan (0.7-2.0) mmol/L Calcium 8.0 L (8.4-10.2) mg/dL Total Bilirubin 0.5 (0.2-1.3) mg/dL AST 30 (17-59) U/L ALT 18 (4-49) U/L Alkaline Phosphatase 88 (38-126) U/L Troponin I (0.000-0.034) ng/mL NT-Pro-B Natriuret Pep pg/mL Total Protein 5.6 L (6.3-8.2) g/dL Albumin 3.1 L (3.5-5.0) g/dL Coronavirus (PCR) (Not Detectd) 03/18/21 03/18/21 03/18/21 Range/Units 18:28 18:28 18:28 WBC (3.8-10.6) k/uL RBC (4.30-5.90) m/uL Hgb (13.0-17.5) gm/dL Hct (39.0-53.0) % MCV (80.0-100.0) fL MCH (25.0-35.0) pg MCHC (31.0-37.0) g/dL RDW (11.5-15.5) % Plt Count (150-450) k/uL MPV Neutrophils % % Lymphocytes % % Monocytes % % Eosinophils % % Basophils % % Neutrophils # (1.3-7.7) k/uL Lymphocytes # (1.0-4.8) k/uL Monocytes # (0-1.0) k/uL Eosinophils # (0-0.7) k/uL Basophils # (0-0.2) k/uL Anisocytosis Macrocytosis PT (9.0-12.0) sec INR (<1.2) APTT (22.0-30.0) sec Sodium (137-145) mmol/L Potassium (3.5-5.1) mmol/L Chloride (98-107) mmol/L Carbon Dioxide (22-30) mmol/L Anion Gap mmol/L BUN (9-20) mg/dL Creatinine (0.66-1.25) mg/dL Est GFR (CKD-EPI)AfAm (>60 ml/min/1.73 sqM) Est GFR (CKD-EPI)NonAf (>60 ml/min/1.73 sqM) Glucose (74-99) mg/dL Lactic Ac Sepsis Rflx Plasma Lactic Acid Ivan 5.8 H* (0.7-2.0) mmol/L Calcium (8.4-10.2) mg/dL Total Bilirubin (0.2-1.3) mg/dL AST (17-59) U/L ALT (4-49) U/L Alkaline Phosphatase (38-126) U/L Troponin I 0.038 H* (0.000-0.034) ng/mL NT-Pro-B Natriuret Pep 30087 pg/mL Total Protein (6.3-8.2) g/dL Albumin (3.5-5.0) g/dL Coronavirus (PCR) (Not Detectd) 03/18/21 03/18/21 Range/Units 18:28 18:57 WBC (3.8-10.6) k/uL RBC (4.30-5.90) m/uL Hgb (13.0-17.5) gm/dL Hct (39.0-53.0) % MCV (80.0-100.0) fL MCH (25.0-35.0) pg MCHC (31.0-37.0) g/dL RDW (11.5-15.5) % Plt Count (150-450) k/uL MPV Neutrophils % % Lymphocytes % % Monocytes % % Eosinophils % % Basophils % % Neutrophils # (1.3-7.7) k/uL Lymphocytes # (1.0-4.8) k/uL Monocytes # (0-1.0) k/uL Eosinophils # (0-0.7) k/uL Basophils # (0-0.2) k/uL Anisocytosis Macrocytosis PT (9.0-12.0) sec INR (<1.2) APTT (22.0-30.0) sec Sodium (137-145) mmol/L Potassium (3.5-5.1) mmol/L Chloride (98-107) mmol/L Carbon Dioxide (22-30) mmol/L Anion Gap mmol/L BUN (9-20) mg/dL Creatinine (0.66-1.25) mg/dL Est GFR (CKD-EPI)AfAm (>60 ml/min/1.73 sqM) Est GFR (CKD-EPI)NonAf (>60 ml/min/1.73 sqM) Glucose (74-99) mg/dL Lactic Ac Sepsis Rflx Y Plasma Lactic Acid Ivan (0.7-2.0) mmol/L Calcium (8.4-10.2) mg/dL Total Bilirubin (0.2-1.3) mg/dL AST (17-59) U/L ALT (4-49) U/L Alkaline Phosphatase (38-126) U/L Troponin I (0.000-0.034) ng/mL NT-Pro-B Natriuret Pep pg/mL Total Protein (6.3-8.2) g/dL Albumin (3.5-5.0) g/dL Coronavirus (PCR) Not Detected (Not Detectd) - Radiology Data Radiology results: image reviewed (Chest x-ray shows progressive reticular nodular and groundglass infiltrates.) Critical Care Time Critical Care Time: Yes Total Critical Care Time: 36 Disposition Clinical Impression: Congestive heart failure, Respiratory failure, Acute exacerbation of chronic obstructive airways disease Disposition: ADMITTED IP TO THIS HOSP Condition: Critical Is patient prescribed a controlled substance at d/c from ED?: No Referrals: [facility],Clinic [Primary Care Provider] - 1-2 days
[2021-03-18] MEDS ORDERED: FUROSEMIDE 10 MG/ML 4 ML VIAL IV STA (18:43)
[2021-03-18 18:45] LABS: Anisocytosis Slight; Basophils # (A) 0.1 k/uL (0-0.2); Basophils % (A) 1 %; Eosinophils # (A) 0.3 k/uL (0-0.7); Eosinophils % (A) 3 %; HCT 31.2 % (39.0-53.0); HGB 10.4 gm/dL (13.0-17.5); Lymphocytes # (A) 2.1 k/uL (1.0-4.8); Lymphocytes % (A) 19 %; MCH 35.2 pg (25.0-35.0); MCHC 33.2 g/dL (31.0-37.0); Mean Platelet Volume 7.9; Monocytes # (A) 0.8 k/uL (0-1.0); Monocytes % (A) 7 %; Neutrophils % (A) 69 %; Platelet Count 384 k/uL (150-450); RBC 2.95 m/uL (4.30-5.90); RDW 17.3 % (11.5-15.5); WBC 11.5 k/uL (3.8-10.6)
[2021-03-18 18:55] LABS: ALT 18 U/L (4-49); AST 30 U/L (17-59); African American GFR (CKD) >90 (>60 ml/min/1.73 sqM); Albumin 3.1 g/dL (3.5-5.0); Alkaline Phosphatase 88 U/L (38-126); Anion Gap 10 mmol/L; Blood Urea Nitrogen 15 mg/dL (9-20); Carbon Dioxide 21 mmol/L (22-30); Chloride 98 mmol/L (98-107); Glucose 317 mg/dL (74-99); Macrocytosis Marked; Non-African American GFR(CKD) >90 (>60 ml/min/1.73 sqM); Potassium 5.2 mmol/L (3.5-5.1); Sodium 129 mmol/L (137-145); Total Bilirubin 0.5 mg/dL (0.2-1.3); Total Protein 5.6 g/dL (6.3-8.2)
--- NOTE | 2021-03-18 18:55 | XR ---
EXAMINATION TYPE: XR chest 1V portable DATE OF EXAM: 03/18/2021 HISTORY: Shortness of breath. COMPARISON: 03/14/2021 TECHNIQUE: Single view of the chest is submitted. FINDINGS: Demonstrated are scattered senescent parenchymal change. Progressive reticulonodular and groundglass infiltrates are identified. The heart is stable. Hilar and mediastinal structures are within normal limits. Degenerative changes are seen of the dorsal spine. IMPRESSION: 1. Progressive reticulonodular and groundglass infiltrates are identified.
[2021-03-18 19:01] LABS: INR 0.9 (<1.2); Prothrombin Time 9.8 sec (9.0-12.0)
[2021-03-18 19:08] LABS: Partial Thromboplastin Time 21.4 sec (22.0-30.0)
[2021-03-18] MEDS ORDERED: LORazepam 2 MG/ML INJ IV PRN ×2 (19:24)
[2021-03-18] MEDS: CHLORHEXIDINE GLUCONATE 15 ML CUP MUCOUS MEM SCH (21:02)
[2021-03-18] MEDS ORDERED: IPRATROPIUM-ALBUTEROL 3 ML NEB INHALATION PRN (22:03)
[2021-03-18] MEDS ORDERED: ASPIRIN 325 MG TAB PO STA (22:03)
--- NOTE | 2021-03-18 22:33 | P.CNPUL ---
History of Present Illness Consult date: 03/18/21 Reason for consult: dyspnea History of present illness: 70-year-old male patient, known history of COPD, also history of aortic stenosis, recently discharged from the hospital after being hospitalized for respiratory failure treated and optimizing discharged home on 03/16/2021, presented emergency with acute respiratory distress, severely bronchospastic and wheezy at the time of admission and tachypneic and hypoxic and severe respiratory distress. Immediately was placed on BiPAP pressure of 12/6 cm of water with an FiO2 of 80%. The patient had significant respiratory distress. There was contemplated to intubate the patient. He was given some bronchodilators and steroids and diuretics and subsequently within an hour or so his condition improved and the patient was kept on a BiPAP and the plan to intubate the patient was aborted. Reviewed the chest x-rays consistent with diffuse interstitial infiltrates bilaterally with probably some scarring in lung bases. COVID-19 testing was negative. No swelling lower extremities. No chest pain. No fever. He was profoundly tachycardic at time of admission, temperature is improved and the respiratory rate improved within an hour or 2 while on BiPAP. His white cell count was 11.4 with a hemoglobin of 7.4 platelet count of 384. Sodium level was at 129. Normal creatinine 0.7. Calcium was 8, normal LFTs, proBNP level was 10,700 and if her symptoms troponin was at 0.0 38. Recommendations made to transfer the patient to the intensive care units once bed is available. Echocardiogram done on 03/09/2021 showed an ejection fraction of 50-55%, patient was found to have severe aortic stenosis, peak gradient recorded still with a was 64, no significant pulmonary hypertension. He is also known to have atrial fibrillation as the patient's rhythm was A. fib during early hospitalization. Current rhythm is sinus with evidence of LVH. Review of Systems Constitutional: Reports weakness Eyes: denies as per HPI, denies blurred vision, denies bulging eye, denies decreased vision, denies diplopia, denies discharge, denies dry eye, denies irritation, denies itching, denies pain, denies photophobia, denies loss of p eripheral vision, denies loss of vision, denies tunnel vision/blind spots Ears: deny: decreased hearing, ear discharge, earache, tinnitus Ears, nose, mouth and throat: Reports as per HPI Breasts: absent: as per HPI, gynecomastia Cardiovascular: Reports decreased exercise tolerance Respiratory: Reports cough, Reports dyspnea, Reports home oxygen, Reports wheezing Gastrointestinal: Reports as per HPI Genitourinary: Reports as per HPI Musculoskeletal: Reports as per HPI Musculoskeletal: absent: ankle pain, ankle stiffness, ankle swelling, as per HPI, elbow pain, elbow stiffness, elbow swelling, foot pain, foot stiffness, foot swelling, hand pain, hand stiffness, hand swelling, hip pain, hip stiffness, hip swelling, knee pain, knee stiffness, knee swelling, shoulder pa in, shoulder stiffness, shoulder swelling, wrist pain, wrist stiffness, wrist swelling Integumentary: Reports as per HPI Neurological: Reports as per HPI Psychiatric: Reports as per HPI Endocrine: Reports as per HPI Hematologic/Lymphatic: Reports as per HPI Allergic/Immunologic: Reports as per HPI Past Medical History Past Medical History: Heart Failure Additional Past Medical History / Comment(s): COPD, 2 pack per day smoker for 20 years, patient drinks 6 cans of beer daily severe aortic stenosis History of Any Multi-Drug Resistant Organisms: None Reported Past Surgical History: Unable to Obtain Additional Past Surgical History / Comment(s): Hernia Past Anesthesia/Blood Transfusion Reactions: No Reported Reaction Past Psychological History: No Psychological Hx Reported Smoking Status: Former smoker Past Alcohol Use History: Daily, Heavy Past Drug Use History: None Reported - Past Family History Mother Family Medical History: Diabetes Mellitus Father Family Medical History: Cancer Additional Family Medical History / Comment(s): from lung cancer Medications and Allergies Home Medications Medication Instructions Recorded Confirmed Type Docusate [Colace] 100 mg PO BID@0800,1600 03/09/21 03/18/21 History Metoprolol Tartrate [Lopressor] 25 mg PO BID@0800,1600 03/09/21 03/18/21 History Tiotropium 2.5 Mcg/Puff [Spiriva 2 puff INHALATION RT-DAILY 03/09/21 03/18/21 History Respimat 2.5 Mcg] Ipratropium-Albuterol Nebulize 3 ml INHALATION RT-Q2H PRN ml 03/16/21 03/18/21 Rx [Duoneb 0.5 mg-3 mg/3 ml Soln] Furosemide [Lasix] 40 mg PO BID@0800,1600 03/18/21 03/18/21 History Ipratropium-Albuterol Nebulize 3 ml INHALATION RT-Q4H 03/18/21 03/18/21 History [Duoneb 0.5 mg-3 mg/3 ml Soln] Omeprazole 20 mg PO HS 03/18/21 03/18/21 History Allergies Allergy/AdvReac Type Severity Reaction Status Date / Time No Known Allergies Allergy Verified 03/18/21 19:30 Physical Exam Vitals: Vital Signs Temp Pulse Pulse Resp BP Pulse Ox 03/18/21 20:33 130 H 24 90/58 96 03/18/21 19:12 140 H 03/18/21 18:59 36 H 97 03/18/21 18:45 140 H 03/18/21 18:37 144 H 03/18/21 18:23 144 H 37 H 162/70 96 03/18/21 18:15 144 H 40 H 03/18/21 18:14 98.7 F 142 H 40 H 132/87 87 L Intake and Output 03/18/21 03/18/21 03/18/21 06:59 14:59 22:59 Other: Weight 74.843 kg GENERAL: The patient is alert and oriented , breathing is labored and the patient continues to done about the pressure of 12/6 cm of water and FiO2 of 80%. Tachypneic at the time of admission, currently improving. Following simple commands. Head exam was generally normal. There was no scleral icterus or corneal arcus. Mucous membranes were moist. HEENT: Pupils are round and equally reacting to light. EOMI. No scleral icterus. No conjunctival pallor. Normocephalic, atraumatic. No pharyngeal erythema. No thyromegaly. Neck was supple and with jugular venous distension, thyromegaly, or carotid bruits. Carotids were easily palpable bilaterally. There was no adenopathy. CARDIOVASCULAR: S1 and S2 present. No murmurs, rubs, or gallops. Systolic murmur murmurs appreciated. Overall heart sounds quite distant. PULMONARY: There are crackles are present in the lung bases bilaterally the patient has scattered external wheezes and diminished breath sounds ABDOMEN: Soft, nontender, nondistended, normoactive bowel sounds. No palpable organomegaly. MUSCULOSKELETAL: No joint swelling or deformity. EXTREMITIES: No cyanosis, clubbing, or pedal edema. NEUROLOGICAL: Gross neurological examination did not reveal any focal deficits. SKIN: No rashes. Results - Laboratory Findings CBC and BMP: 03/18/21 18:28 03/18/21 18:28 PT/INR, D-dimer PT 9.8 sec (9.0-12.0) 03/18/21 18: INR 0.9 (<1.2) 03/18/21 18:28 Abnormal lab findings: Abnormal Labs 03/18/21 03/18/21 03/18/21 18:28 18:28 18:28 WBC 11.5 H RBC 2.95 L Hgb 10.4 L Hct 31.2 L MCV 106.0 H MCH 35.2 H RDW 17.3 H Neutrophils # 8.0 H Macrocytosis Marked A APTT 21.4 L Sodium 129 L Potassium 5.2 H Carbon Dioxide 21 L Glucose 317 H Plasma Lactic Acid Ivan Calcium 8.0 L Troponin I Total Protein 5.6 L Albumin 3.1 L 03/18/21 03/18/21 18:28 18:28 WBC RBC Hgb Hct MCV MCH RDW Neutrophils # Macrocytosis APTT Sodium Potassium Carbon Dioxide Glucose Plasma Lactic Acid Ivan 5.8 H* Calcium Troponin I 0.038 H* Total Protein Albumin - Diagnostic Findings Chest x-ray: image reviewed Assessment and Plan Plan: 1 Acute hypoxic respiratory failure secondary to COPD exacerbation along with a component of chronic diastolic dysfunction with acute exacerbation along with aortic stenosis.. The patient presented with acute respiratory distress and the patient was in acute respiratory failure, optimizing the use of BiPAP at a pressure of 12/6 cm of water.. The chest x-ray shows diffuse interstitial and alveolar infiltrates consistent with pulmonary edema. COVID-19 testing was negative. 2 COPD with chronic hypoxic respiratory failure 3 chronic hypoxic respiratory failure 4 severe aortic stenosis 5 paroxysmal A. fib fibrillation currently his rhythm is sinus. Presented with sinus tachycardia with LVH 6 chronic anemia 7 smoker 8 acute lactic acidosis secondary to above 9 troponin leak, free of any chest pain and the patient has no acute EKG changes Plan Continue BiPAP for respiratory support pressures of 12/6 with an FiO2 of 80% and FiO2 Gradually weaned off to maintain a saturation above 90% IV Lasix 40 mg every 12 hours DuoNeb nebulized treatments around the clock 4 times a day IV Solu Medrol 60 mg every 6 hour COVID-19 testing has been negative NovoLog sliding scale coverage for blood sugar control The patient appears to have had an episode of the acute CHF, as reflected in his elevated N-terminal proBNP, and his chest x-ray. The patient apparently was found to have significant aortic stenosis on his echocardiogram. The patient also with ongoing tobacco user, and does have pretty significant COPD. On a previous notes, it was noted that his FEV1 percent was 51, maintain on Spiriva on outpatient basis The patient will be given bronchodilators. Additional recommendations and suggestions are forthcoming. The patient has been seen by cardiology. He is counseled about the importance of smoking cessation.
[2021-03-19] MEDS: FUROSEMIDE 10 MG/ML 4 ML VIAL IV SCH ×4 (00:29→22:33)
[2021-03-19] MEDS: methylPREDNISolone SOD SUCCI 125 MG/2 ML VIAL IV SCH ×4 (01:23→16:51)
--- NOTE | 2021-03-19 07:03 | XR ---
EXAMINATION TYPE: XR chest 1V portable DATE OF EXAM: 03/19/2021 COMPARISON: 03/18/2021 HISTORY: Dyspnea Findings: There has been moderate interval improvement in the diffuse bilateral interstitial and airspace infil trates. There are probable bilateral pleural effusions which are essentially unchanged. The osseous structures are intact. IMPRESSION: Persistent acute cardiopulmonary disease with moderate interval improvement compared to the prior stefan dy.
[2021-03-19] MEDS: IPRATROPIUM-ALBUTEROL 3 ML NEB INHALATION SCH ×4 (07:37→21:18)
--- NOTE | 2021-03-19 11:28 | P.PN ---
Subjective Progress Note Date: 03/19/21 03/19/2021, the patient is feeling better. He is significantly improved compared to yesterday. This morning he is off the BiPAP. He has been diuresing well. He is currently on 4 L about 2 by nasal cannula. Chest x-ray shows improvement in the volume status and there is some residual interstitial edema and small bilateral pleural effusions. Lactic acid level is at 3.9 and is being monitored. The patient's troponins are peaked at 0.147 and these are also being monitored. His full BNP level was above 10,000. Sodium level I was 129 from yesterday and this is being monitored. No angina. No palpitations. No other significant events overnight. He is currently off the BiPAP and the patient can be sent to a medical surgical floor. No edema in lower extremities. Cardiac rhythm is sinus Objective - Vital Signs Vital signs: Vital Signs Temp 98.7 F 03/18/21 23:00 Pulse 108 H 03/19/21 10:25 Resp 18 03/19/21 10:25 BP 109/60 03/19/21 09:34 Pulse Ox 94 L 03/19/21 10:25 Intake & Output 03/18/21 03/19/21 03/19/21 18:59 06:59 18:59 Weight 74.843 kg - Exam GENERAL: The patient is alert and oriented , breathing is much more comfortable compared to yesterday and patient is currently on 4 L of oxygen by nasal cannula. Head exam was generally normal. There was no scleral icterus or corneal arcus. Mucous membranes were moist. HEENT: Pupils are round and equally reacting to light. EOMI. No scleral icterus. No conjunctival pallor. Normocephalic, atraumatic. No pharyngeal erythema. No thyromegaly. Neck was supple and with jugular venous distension, thyromegaly, or carotid bruits. Carotids were easily palpable bilaterally. There was no adenopathy. CARDIOVASCULAR: S1 and S2 present. No murmurs, rubs, or gallops. Systolic murmur murmurs appreciated. Overall heart sounds quite distant. PULMONARY: There are crackles are present in the lung bases bilaterally the patient has scattered external wheezes and diminished breath sounds ABDOMEN: Soft, nontender, nondistended, normoactive bowel sounds. No palpable organomegaly. MUSCULOSKELETAL: No joint swelling or deformity. EXTREMITIES: No cyanosis, clubbing, or pedal edema. NEUROLOGICAL: Gross neurological examination did not reveal any focal deficits. SKIN: No rashes. - Labs CBC & Chem 7: 03/18/21 18:28 03/18/21 18:28 Labs: Abnormal Lab Results - Last 24 Hours (Table) 03/18/21 03/18/21 03/18/21 Range/Units 18:28 18:28 18:28 WBC 11.5 H (3.8-10.6) k/uL RBC 2.95 L (4.30-5.90) m/uL Hgb 10.4 L (13.0-17.5) gm/dL Hct 31.2 L (39.0-53.0) % MCV 106.0 H (80.0-100.0) fL MCH 35.2 H (25.0-35.0) pg RDW 17.3 H (11.5-15.5) % Neutrophils # 8.0 H (1.3-7.7) k/uL Macrocytosis Marked A APTT 21.4 L (22.0-30.0) sec Sodium 129 L (137-145) mmol/L Potassium 5.2 H (3.5-5.1) mmol/L Carbon Dioxide 21 L (22-30) mmol/L Glucose 317 H (74-99) mg/dL Plasma Lactic Acid Ivan (0.7-2.0) mmol/L Calcium 8.0 L (8.4-10.2) mg/dL Troponin I (0.000-0.034) ng/mL Total Protein 5.6 L (6.3-8.2) g/dL Albumin 3.1 L (3.5-5.0) g/dL 03/18/21 03/18/21 03/18/21 Range/Units 18:28 18:28 22:19 WBC (3.8-10.6) k/uL RBC (4.30-5.90) m/uL Hgb (13.0-17.5) gm/dL Hct (39.0-53.0) % MCV (80.0-100.0) fL MCH (25.0-35.0) pg RDW (11.5-15.5) % Neutrophils # (1.3-7.7) k/uL Macrocytosis APTT (22.0-30.0) sec Sodium (137-145) mmol/L Potassium (3.5-5.1) mmol/L Carbon Dioxide (22-30) mmol/L Glucose (74-99) mg/dL Plasma Lactic Acid Ivan 5.8 H* 2.2 H* (0.7-2.0) mmol/L Calcium (8.4-10.2) mg/dL Troponin I 0.038 H* (0.000-0.034) ng/mL Total Protein (6.3-8.2) g/dL Albumin (3.5-5.0) g/dL 03/18/21 03/19/21 03/19/21 Range/Units 22:19 01:54 01:54 WBC (3.8-10.6) k/uL RBC (4.30-5.90) m/uL Hgb (13.0-17.5) gm/dL Hct (39.0-53.0) % MCV (80.0-100.0) fL MCH (25.0-35.0) pg RDW (11.5-15.5) % Neutrophils # (1.3-7.7) k/uL Macrocytosis APTT (22.0-30.0) sec Sodium (137-145) mmol/L Potassium (3.5-5.1) mmol/L Carbon Dioxide (22-30) mmol/L Glucose (74-99) mg/dL Plasma Lactic Acid Ivan 4.3 H* (0.7-2.0) mmol/L Calcium (8.4-10.2) mg/dL Troponin I 0.147 H* 0.119 H* (0.000-0.034) ng/mL Total Protein (6.3-8.2) g/dL Albumin (3.5-5.0) g/dL 03/19/21 03/19/21 Range/Units 05:54 08:45 WBC (3.8-10.6) k/uL RBC (4.30-5.90) m/uL Hgb (13.0-17.5) gm/dL Hct (39.0-53.0) % MCV (80.0-100.0) fL MCH (25.0-35.0) pg RDW (11.5-15.5) % Neutrophils # (1.3-7.7) k/uL Macrocytosis APTT (22.0-30.0) sec Sodium (137-145) mmol/L Potassium (3.5-5.1) mmol/L Carbon Dioxide (22-30) mmol/L Glucose (74-99) mg/dL Plasma Lactic Acid Ivan 4.7 H* 3.9 H* (0.7-2.0) mmol/L Calcium (8.4-10.2) mg/dL Troponin I (0.000-0.034) ng/mL Total Protein (6.3-8.2) g/dL Albumin (3.5-5.0) g/dL Assessment and Plan Plan: 1 Acute hypoxic respiratory failure secondary to COPD exacerbation along with a component of chronic diastolic dysfunction with acute exacerbation along with aortic stenosis.. The patient presented with acute respiratory distress and the patient was in acute respiratory failure, optimizing the use of BiPAP at a pressure of 12/6 cm of water.. The chest x-ray shows diffuse interstitial and alveolar infiltrates consistent with pulmonary edema. COVID-19 testing was negative. The patient was treated with a combination of bronchodilators, steroids and antibiotics and the patient improved considerably and currently is off the BiPAP and the patient is currently on 4 L of cannula. Hemodynamically stable. 2 COPD with chronic hypoxic respiratory failure 3 chronic hypoxic respiratory failure 4 severe aortic stenosis 5 paroxysmal A. fib fibrillation currently his rhythm is sinus. Presented with sinus tachycardia with LVH 6 chronic anemia 7 smoker 8 acute lactic acidosis secondary to above 9 troponin leak, free of any chest pain and the patient has no acute EKG changes Plan Discontinue BiPAP and use oxygen 4 L IV Lasix 40 mg every 12 hours DuoNeb nebulized treatments around the clock 4 times a day IV Solu Medrol 60 mg every 6 hour COVID-19 testing has been negative NovoLog sliding scale coverage for blood sugar control The patient appears to have had an episode of the acute CHF, as reflected in his elevated N-terminal proBNP, and his chest x-ray. The patient apparently was found to have significant aortic stenosis on his echocardiogram. The patient also with ongoing tobacco user, and does have pretty significant COPD. On a previous notes, it was noted that his FEV1 percent was 51, maintain on Spiriva on outpatient basis The patient will be given bronchodilators. Additional recommendations and suggestions are forthcoming. The patient has been seen by cardiology. He is counseled about the importance of smoking cessation. As the case with cardiology. No need for anticoagulation and the patient has been taken off Eliquis during his last admission. He can be transferred to a medical surgical floor.
[2021-03-19 12:24] LABS: ALT 26 U/L (4-49); AST 27 U/L (17-59); African American GFR (CKD) >90 (>60 ml/min/1.73 sqM); Albumin 3.3 g/dL (3.5-5.0); Alkaline Phosphatase 64 U/L (38-126); Anion Gap 8 mmol/L; Blood Urea Nitrogen 19 mg/dL (9-20); Carbon Dioxide 25 mmol/L (22-30); Chloride 99 mmol/L (98-107); Glucose 220 mg/dL (74-99); Non-African American GFR(CKD) >90 (>60 ml/min/1.73 sqM); Potassium 3.9 mmol/L (3.5-5.1); Sodium 132 mmol/L (137-145); Total Bilirubin 0.7 mg/dL (0.2-1.3); Total Protein 5.8 g/dL (6.3-8.2)
[2021-03-19 12:25] LABS: Anisocytosis Slight; Basophils % (A) 0 %; Eosinophils % (A) 0 %; HCT 28.3 % (39.0-53.0); HGB 9.6 gm/dL (13.0-17.5); Lymphocytes # (A) 0.3 k/uL (1.0-4.8); Lymphocytes % (A) 3 %; MCH 34.5 pg (25.0-35.0); MCHC 33.8 g/dL (31.0-37.0); MCV 102.1 fL (80.0-100.0); Macrocytosis Moderate; Mean Platelet Volume 7.9; Monocytes # (A) 0.2 k/uL (0-1.0); Monocytes % (A) 2 %; Neutrophils # (A) 9.5 k/uL (1.3-7.7); Neutrophils % (A) 94 %; Platelet Count 288 k/uL (150-450); RBC 2.77 m/uL (4.30-5.90); RDW 17.4 % (11.5-15.5)
[2021-03-19] MEDS: CHLORHEXIDINE GLUCONATE 15 ML CUP MUCOUS MEM SCH (13:56)
[2021-03-19] MEDS: ASPIRIN 325 MG TAB PO SCH (14:14)
--- NOTE | 2021-03-19 15:13 | P.HPIM ---
History of Present Illness 70-year-old pleasant male with known history of aortic stenosis chronic diastolic dysfunction was recently discharged from the hospital after he was treated for heart failure exacerbation comes in again with her shortness of breath and and the was on 15 L of oxygen yesterday presently back to 3 L. Patient is found to be in heart failure exacerbation and chest x-ray patient is also wheezing and exam patient is being treated for 6 COPD and CHF exacerbation patient is presently on IV Lasix and patient is also on systemic steroids at this time COVID-19 was negative patient doesn't have any evidence of pneumonia at this time BNP level is 10,700. Patient has severe aortic stenosis with peak gradient around 64. REVIEW OF SYSTEMS: CONSTITUTIONAL: No fever, no malaise, no fatigue. HEENT: No recent visual problems or hearing problems. Denied any sore throat. CARDIOVASCULAR: No chest pain, no palpitations, no syncope. PULMONARY: no hemoptysis. GASTROINTESTINAL: No diarrhea, no nausea, no vomiting, no abdominal pain. NEUROLOGICAL: No headaches, no weakness, no numbness. HEMATOLOGICAL: Denies any bleeding or petechiae. GENITOURINARY: Denies any burning micturition, frequency, or urgency. MUSCULOSKELETAL/RHEUMATOLOGICAL: Denies any joint pain, swelling, or any muscle pain. ENDOCRINE: Denies any polyuria or polydipsia. The rest of the 14-point review of systems is negative. PHYSICAL EXAMINATION: GENERAL: The patient is alert and oriented x3, not in any acute distress. Well developed, well nourished. HEENT: Pupils are round and equally reacting to light. EOMI. No scleral icterus. No conjunctival pallor. Normocephalic, atraumatic. No pharyngeal erythema. No thyromegaly. CARDIOVASCULAR: S1 and S2 present. No murmurs, rubs, or gallops. PULMONARY: Bibasilar crackles ABDOMEN: Soft, nontender, nondistended, normoactive bowel sounds. No palpable organomegaly. MUSCULOSKELETAL: No joint swelling or deformity. EXTREMITIES: No cyanosis, clubbing, or pedal edema. NEUROLOGICAL: Gross neurological examination did not reveal any focal deficits. SKIN: No rashes. Assessment and plan Chronic hypoxic and hypercapnic respiratory failure secondary to COPD as well as CHF exacerbation patient does have severe aortic stenosis which is contributing to his. Patient was weaned off BiPAP and patient is presently in status of oxygen -Congestive heart failure chronic diastolic dysfunction with acute exacerbation -Hypervolemic hyponatremia -Severe stenosis -COPD with acute exacerbation patient is presently on systemic steroids -Proximal atrial fibrillation presently in sinus rhythm continue with rate control medications -Anemia of chronic disease -Nicotine use -Pack acidosis secondary to hypoperfusion and CHF improved at this time -Elevated troponin secondary to heart failure exacerbation and hypoxia DVT prophylaxis: Lovenox Past Medical History Past Medical History: Heart Failure Additional Past Medical History / Comment(s): COPD, 2 pack per day smoker for 20 years, patient drinks 6 cans of beer daily severe aortic stenosis History of Any Multi-Drug Resistant Organisms: None Reported Past Surgical History: Unable to Obtain Additional Past Surgical History / Comment(s): Hernia Past Anesthesia/Blood Transfusion Reactions: No Reported Reaction Past Psychological History: No Psychological Hx Reported Smoking Status: Former smoker Past Alcohol Use History: Daily, Heavy Past Drug Use History: None Reported - Past Family History Mother Family Medical History: Diabetes Mellitus Father Family Medical History: Cancer Additional Family Medical History / Comment(s): from lung cancer Medications and Allergies Home Medications Medication Instructions Recorded Confirmed Type Docusate [Colace] 100 mg PO BID@0800,1600 03/09/21 03/18/21 History Metoprolol Tartrate [Lopressor] 25 mg PO BID@0800,1600 03/09/21 03/18/21 History Tiotropium 2.5 Mcg/Puff [Spiriva 2 puff INHALATION RT-DAILY 03/09/21 03/18/21 History Respimat 2.5 Mcg] Ipratropium-Albuterol Nebulize 3 ml INHALATION RT-Q2H PRN ml 03/16/21 03/18/21 Rx [Duoneb 0.5 mg-3 mg/3 ml Soln] Furosemide [Lasix] 40 mg PO BID@0800,1600 03/18/21 03/18/21 History Ipratropium-Albuterol Nebulize 3 ml INHALATION RT-Q4H 03/18/21 03/18/21 History [Duoneb 0.5 mg-3 mg/3 ml Soln] Omeprazole 20 mg PO HS 03/18/21 03/18/21 History Allergies Allergy/AdvReac Type Severity Reaction Status Date / Time No Known Allergies Allergy Verified 03/18/21 19:30 Physical Exam Vitals: Vital Signs Temp Pulse Pulse Resp BP Pulse Ox 03/19/21 14:24 119 H 19 121/77 95 03/19/21 14:15 114 H 03/19/21 14:00 117 H 03/19/21 10:25 108 H 18 94 L 03/19/21 09:34 97 19 109/60 98 03/19/21 07:47 95 03/19/21 07:37 96 98 03/19/21 07:00 91 16 110/60 99 03/19/21 06:00 94 18 108/64 97 03/19/21 05:00 95 16 122/71 95 03/19/21 04:00 97 16 102/60 98 03/19/21 03:59 99 17 102/60 98 03/19/21 01:27 106 H 23 114/69 99 03/19/21 00:15 113 H 26 H 104/62 96 03/18/21 23:00 98.7 F 110 H 22 111/80 98 03/18/21 22:33 112 H 24 108/78 98 03/18/21 20:33 130 H 24 90/58 96 03/18/21 19:12 140 H 03/18/21 18:59 36 H 97 03/18/21 18:45 140 H 03/18/21 18:37 144 H 03/18/21 18:23 144 H 37 H 162/70 96 03/18/21 18:15 144 H 40 H 03/18/21 18:14 98.7 F 142 H 40 H 132/87 87 L Results CBC & Chem 7: 03/19/21 11:37 03/19/21 11:37 Labs: Abnormal Lab Results - Last 24 Hours (Table) 03/18/21 03/18/21 03/18/21 Range/Units 18:28 18:28 18:28 WBC 11.5 H (3.8-10.6) k/uL RBC 2.95 L (4.30-5.90) m/uL Hgb 10.4 L (13.0-17.5) gm/dL Hct 31.2 L (39.0-53.0) % MCV 106.0 H (80.0-100.0) fL MCH 35.2 H (25.0-35.0) pg RDW 17.3 H (11.5-15.5) % Neutrophils # 8.0 H (1.3-7.7) k/uL Lymphocytes # (1.0-4.8) k/uL Macrocytosis Marked A APTT 21.4 L (22.0-30.0) sec Sodium 129 L (137-145) mmol/L Potassium 5.2 H (3.5-5.1) mmol/L Carbon Dioxide 21 L (22-30) mmol/L Glucose 317 H (74-99) mg/dL Plasma Lactic Acid Ivan (0.7-2.0) mmol/L Calcium 8.0 L (8.4-10.2) mg/dL Troponin I (0.000-0.034) ng/mL Total Protein 5.6 L (6.3-8.2) g/dL Albumin 3.1 L (3.5-5.0) g/dL 03/18/21 03/18/21 03/18/21 Range/Units 18:28 18:28 22:19 WBC (3.8-10.6) k/uL RBC (4.30-5.90) m/uL Hgb (13.0-17.5) gm/dL Hct (39.0-53.0) % MCV (80.0-100.0) fL MCH (25.0-35.0) pg RDW (11.5-15.5) % Neutrophils # (1.3-7.7) k/uL Lymphocytes # (1.0-4.8) k/uL Macrocytosis APTT (22.0-30.0) sec Sodium (137-145) mmol/L Potassium (3.5-5.1) mmol/L Carbon Dioxide (22-30) mmol/L Glucose (74-99) mg/dL Plasma Lactic Acid Ivan 5.8 H* 2.2 H* (0.7-2.0) mmol/L Calcium (8.4-10.2) mg/dL Troponin I 0.038 H* (0.000-0.034) ng/mL Total Protein (6.3-8.2) g/dL Albumin (3.5-5.0) g/dL 03/18/21 03/19/21 03/19/21 Range/Units 22:19 01:54 01:54 WBC (3.8-10.6) k/uL RBC (4.30-5.90) m/uL Hgb (13.0-17.5) gm/dL Hct (39.0-53.0) % MCV (80.0-100.0) fL MCH (25.0-35.0) pg RDW (11.5-15.5) % Neutrophils # (1.3-7.7) k/uL Lymphocytes # (1.0-4.8) k/uL Macrocytosis APTT (22.0-30.0) sec Sodium (137-145) mmol/L Potassium (3.5-5.1) mmol/L Carbon Dioxide (22-30) mmol/L Glucose (74-99) mg/dL Plasma Lactic Acid Ivan 4.3 H* (0.7-2.0) mmol/L Calcium (8.4-10.2) mg/dL Troponin I 0.147 H* 0.119 H* (0.000-0.034) ng/mL Total Protein (6.3-8.2) g/dL Albumin (3.5-5.0) g/dL 03/19/21 03/19/21 03/19/21 Range/Units 05:54 08:45 11:37 WBC (3.8-10.6) k/uL RBC 2.77 L (4.30-5.90) m/uL Hgb 9.6 L (13.0-17.5) gm/dL Hct 28.3 L (39.0-53.0) % MCV 102.1 H (80.0-100.0) fL MCH (25.0-35.0) pg RDW 17.4 H (11.5-15.5) % Neutrophils # 9.5 H (1.3-7.7) k/uL Lymphocytes # 0.3 L (1.0-4.8) k/uL Macrocytosis APTT (22.0-30.0) sec Sodium (137-145) mmol/L Potassium (3.5-5.1) mmol/L Carbon Dioxide (22-30) mmol/L Glucose (74-99) mg/dL Plasma Lactic Acid Ivan 4.7 H* 3.9 H* (0.7-2.0) mmol/L Calcium (8.4-10.2) mg/dL Troponin I (0.000-0.034) ng/mL Total Protein (6.3-8.2) g/dL Albumin (3.5-5.0) g/dL 03/19/21 03/19/21 Range/Units 11:37 11:37 WBC (3.8-10.6) k/uL RBC (4.30-5.90) m/uL Hgb (13.0-17.5) gm/dL Hct (39.0-53.0) % MCV (80.0-100.0) fL MCH (25.0-35.0) pg RDW (11.5-15.5) % Neutrophils # (1.3-7.7) k/uL Lymphocytes # (1.0-4.8) k/uL Macrocytosis APTT (22.0-30.0) sec Sodium 132 L (137-145) mmol/L Potassium (3.5-5.1) mmol/L Carbon Dioxide (22-30) mmol/L Glucose 220 H (74-99) mg/dL Plasma Lactic Acid Ivan 4.1 H* (0.7-2.0) mmol/L Calcium 8.0 L (8.4-10.2) mg/dL Troponin I (0.000-0.034) ng/mL Total Protein 5.8 L (6.3-8.2) g/dL Albumin 3.3 L (3.5-5.0) g/dL
[2021-03-19] MEDS: DOCUSATE 100 MG CAP PO SCH (16:30)
[2021-03-19] MEDS: METOPROLOL TARTRATE 25 MG TAB PO SCH (16:30)
[2021-03-19] MEDS: PANTOPRAZOLE 40 MG TABLET PO SCH (20:03)
[2021-03-20] MEDS: methylPREDNISolone SOD SUCCI 125 MG/2 ML VIAL IV SCH ×3 (00:52→12:21)
[2021-03-20 06:01] LABS: Glucose,Whole Blood 199 mg/dL (75-99)
[2021-03-20] MEDS: FUROSEMIDE 10 MG/ML 4 ML VIAL IV SCH (06:08)
[2021-03-20] MEDS: INSULIN ASPART (NovoLOG) 100 UNIT/ML VIAL SQ SCH ×4 (06:09→21:49)
[2021-03-20 07:26] LABS: Glucose,Whole Blood 175 mg/dL (75-99)
[2021-03-20] MEDS ORDERED: NON FORMULARY DRUG (Tiotropium 2.5 Mcg/Puff 10 PUFF Each) INHALATION SCH (08:00)
[2021-03-20] MEDS: DOCUSATE 100 MG CAP PO SCH ×2 (08:35→15:16)
[2021-03-20] MEDS: METOPROLOL TARTRATE 25 MG TAB PO SCH ×2 (08:35→15:16)
[2021-03-20] MEDS: ASPIRIN 325 MG TAB PO SCH (08:36)
[2021-03-20 08:39] LABS: African American GFR (CKD) >90 (>60 ml/min/1.73 sqM); Anion Gap 10 mmol/L; Blood Urea Nitrogen 26 mg/dL (9-20); Carbon Dioxide 27 mmol/L (22-30); Chloride 93 mmol/L (98-107); Glucose 134 mg/dL (74-99); Magnesium 2.2 mg/dL (1.6-2.3); Non-African American GFR(CKD) 88 (>60 ml/min/1.73 sqM); Potassium 3.8 mmol/L (3.5-5.1); Sodium 130 mmol/L (137-145)
[2021-03-20] MEDS: IPRATROPIUM-ALBUTEROL 3 ML NEB INHALATION SCH ×4 (10:51→21:07)
[2021-03-20 11:57] LABS: Glucose,Whole Blood 150 mg/dL (75-99)
--- NOTE | 2021-03-20 14:54 | P.PN ---
Subjective Progress Note Date: 03/20/21 Patient examined today resting comfortably in bed with no signs of acute distress. Patient remains is on 2 L nasal cannula. Patient's blood pressure is 114/70, heart rate 95, respirations 18, 100% on 2 L nasal cannula, afebrile. Patient is on by mouth Lasix and IV steroids for COPD exacerbation. The patient had chest x-ray which showed persistent acute cardiopulmonary with moderate improvement from prior exam. Patient's previous echo from 03/09/2021 shows a normal ejection fraction of 50-55%, grade 1 systolic dysfunction, and severe aortic stenosis. Labs today show a potassium of 3.8, BUN at 26, creatinine of 0.83, and a magnesium of 2.2. Objective - Vital Signs Vital signs: Vital Signs Temp 97.0 F L 03/20/21 12:00 Pulse 108 H 03/20/21 13:50 Resp 18 03/20/21 13:44 BP 114/70 03/20/21 12:00 Pulse Ox 100 03/20/21 12:00 Intake & Output 03/19/21 03/20/21 03/20/21 18:59 06:59 18:59 Intake Total 1080 118 Output Total 1600 Balance -520 118 Weight 74.843 kg 68.5 kg Intake: Oral 1080 118 Output: Urine 1600 Other: Voiding Method Urinal Urinal # Voids 500 # Bowel Movements 1 - Exam PHYSICAL EXAM: VITAL SIGNS: Reviewed. GENERAL: Well-developed in no acute distress. HEENT: Head is normocephalic. Pupils are equal, round. Sclerae anicteric. Mucous membranes of the mouth are moist. NECK: Supple. No JVD or thyromegaly LUNGS: Respirations even and unlabored. Lungs diminished to auscultation bilaterally. HEART: Regular rate and rhythm. S1 and S2 heard. No murmur or gallops. EXTREMITIES: Normal range of motion. No clubbing or cyanosis. Peripheral pulses intact. Trace bilateral lower extremity edema NEURO: Orientated to person, time, mood is appropriate - Labs CBC & Chem 7: 03/19/21 11:37 03/20/21 07:21 Labs: Abnormal Lab Results - Last 24 Hours (Table) 03/19/21 03/19/21 03/19/21 Range/Units 14:52 17:56 21:01 Sodium (137-145) mmol/L Chloride (98-107) mmol/L BUN (9-20) mg/dL Glucose (74-99) mg/dL POC Glucose (mg/dL) (75-99) mg/dL Plasma Lactic Acid Ivan 4.6 H* 4.2 H* 3.6 H* (0.7-2.0) mmol/L Calcium (8.4-10.2) mg/dL 03/20/21 03/20/21 03/20/21 Range/Units 05:30 07:21 07:24 Sodium 130 L (137-145) mmol/L Chloride 93 L (98-107) mmol/L BUN 26 H (9-20) mg/dL Glucose 134 H (74-99) mg/dL POC Glucose (mg/dL) 199 H 175 H (75-99) mg/dL Plasma Lactic Acid Ivan (0.7-2.0) mmol/L Calcium 8.0 L (8.4-10.2) mg/dL 03/20/21 Range/Units 11:56 Sodium (137-145) mmol/L Chloride (98-107) mmol/L BUN (9-20) mg/dL Glucose (74-99) mg/dL POC Glucose (mg/dL) 150 H (75-99) mg/dL Plasma Lactic Acid Ivan (0.7-2.0) mmol/L Calcium (8.4-10.2) mg/dL Assessment and Plan Assessment: Acute diastolic congestive heart failure Severe aortic stenosis COPD Plan: Continue current cardiac medications Continue by mouth Lasix for CHF He will need to undergo IVIS due to severe aortic stenosis, to evaluate for possible TAVR Lolita Padron I's and O's Continue daily weights Further recommendations pending patient's course
[2021-03-20] MEDS: FUROSEMIDE 20 MG TAB PO SCH (15:16)
--- NOTE | 2021-03-20 15:20 | P.PN ---
Subjective Progress Note Date: 03/20/21 03/19/2021, the patient is feeling better. He is significantly improved compared to yesterday. This morning he is off the BiPAP. He has been diuresing well. He is currently on 4 L about 2 by nasal cannula. Chest x-ray shows improvement in the volume status and there is some residual interstitial edema and small bilateral pleural effusions. Lactic acid level is at 3.9 and is being monitored. The patient's troponins are peaked at 0.147 and these are also being monitored. His full BNP level was above 10,000. Sodium level I was 129 from yesterday and this is being monitored. No angina. No palpitations. No other significant events overnight. He is currently off the BiPAP and the patient can be sent to a medical surgical floor. No edema in lower extremities. Cardiac rhythm is sinus 03/20/2021, the patient is doing well. Is on room air oxygen. No specific complaints. He is off the BiPAP. He is established to have recurrent pulmonary edema along with her severe aortic stenosis. The patient is currently on Lasix 60 mg by mouth twice a day. The patient is also on a prednisone burst taper which was started for treatment of her underlying COPD exacerbation. He is receiving DuoNeb nebulized treatments 4 times a day and when necessary. On his blood work, the patient has a creatinine of 0.80 revealed 26. Sodium is at 1:30. Glucose is 150. No angina. No palpitation. No syncope. The patient will need outpatient follow-up regarding his severe aortic stenosis. Not a good candidate for aortic valve replacement on the presence of percutaneous replacement. Objective - Vital Signs Vital signs: Vital Signs Temp 97.0 F L 03/20/21 12:00 Pulse 108 H 03/20/21 13:50 Resp 18 03/20/21 13:44 BP 114/70 03/20/21 12:00 Pulse Ox 100 03/20/21 12:00 Intake & Output 03/19/21 03/20/21 03/20/21 18:59 06:59 18:59 Intake Total 1080 118 Output Total 1600 Balance -520 118 Weight 74.843 kg 68.5 kg Intake: Oral 1080 118 Output: Urine 1600 Other: Voiding Method Urinal Urinal # Voids 500 # Bowel Movements 1 - Exam GENERAL: The patient is alert and oriented , breathing is much more comfortable compared to yesterday and patient is currently on room air oxygen Head exam was generally normal. There was no scleral icterus or corneal arcus. Mucous membranes were moist. HEENT: Pupils are round and equally reacting to light. EOMI. No scleral icterus. No conjunctival pallor. Normocephalic, atraumatic. No pharyngeal erythema. No thyromegaly. Neck was supple and with jugular venous distension, thyromegaly, or carotid bruits. Carotids were easily palpable bilaterally. There was no adenopathy. CARDIOVASCULAR: S1 and S2 present. No murmurs, rubs, or gallops. Systolic murmur murmurs appreciated. Overall heart sounds quite distant. PULMONARY: There are crackles are present in the lung bases bilaterally the patient has scattered external wheezes and diminished breath sounds ABDOMEN: Soft, nontender, nondistended, normoactive bowel sounds. No palpable organomegaly. MUSCULOSKELETAL: No joint swelling or deformity. EXTREMITIES: No cyanosis, clubbing, or pedal edema. NEUROLOGICAL: Gross neurological examination did not reveal any focal deficits. SKIN: No rashes. - Labs CBC & Chem 7: 03/19/21 11:37 03/20/21 07:21 Labs: Abnormal Lab Results - Last 24 Hours (Table) 03/19/21 03/19/21 03/19/21 Range/Units 14:52 17:56 21:01 Sodium (137-145) mmol/L Chloride (98-107) mmol/L BUN (9-20) mg/dL Glucose (74-99) mg/dL POC Glucose (mg/dL) (75-99) mg/dL Plasma Lactic Acid Ivan 4.6 H* 4.2 H* 3.6 H* (0.7-2.0) mmol/L Calcium (8.4-10.2) mg/dL 03/20/21 03/20/21 03/20/21 Range/Units 05:30 07:21 07:24 Sodium 130 L (137-145) mmol/L Chloride 93 L (98-107) mmol/L BUN 26 H (9-20) mg/dL Glucose 134 H (74-99) mg/dL POC Glucose (mg/dL) 199 H 175 H (75-99) mg/dL Plasma Lactic Acid Ivan (0.7-2.0) mmol/L Calcium 8.0 L (8.4-10.2) mg/dL 03/20/21 Range/Units 11:56 Sodium (137-145) mmol/L Chloride (98-107) mmol/L BUN (9-20) mg/dL Glucose (74-99) mg/dL POC Glucose (mg/dL) 150 H (75-99) mg/dL Plasma Lactic Acid Ivan (0.7-2.0) mmol/L Calcium (8.4-10.2) mg/dL Assessment and Plan Plan: 1 Acute hypoxic respiratory failure secondary to COPD exacerbation along with a component of chronic diastolic dysfunction with acute exacerbation along with aortic stenosis.. The patient was diuresed. The patient was treated with bronchodilators steroids and currently the patient is on room air oxygen. This was predominantly related to pulmonary edema secondary to valvular heart disease/severe aortic stenosis. 2 COPD with chronic hypoxic respiratory failure, currently on room air oxygen and the patient's pulse ox is above 90% 3 shortness of breath, improved 4 severe aortic stenosis 5 paroxysmal A. fib fibrillation currently his rhythm is sinus. Presented with sinus tachycardia with LVH 6 chronic anemia 7 smoker 8 acute lactic acidosis secondary to above 9 troponin leak, free of any chest pain and the patient has no acute EKG changes Plan Patient is currently on room air oxygen. Patient was switched to oral Lasix 60 mg by mouth twice a day DuoNeb nebulized treatments around the clock 4 times a day Discontinue IV Solu-Medrol and put the patient prednisone burst taper COVID-19 testing has been negative NovoLog sliding scale coverage for blood sugar control The patient appears to have had an episode of the acute CHF, as reflected in his elevated N-terminal proBNP, and his chest x-ray. The patient apparently was found to have significant aortic stenosis on his echocardiogram. The patient also with ongoing tobacco user, and does have pretty significant COPD. On a previous notes, it was noted that his FEV1 percent was 51, maintain on Spiriva on outpatient basis The patient will be given bronchodilators. Additional recommendations and suggestions are forthcoming. The patient has been seen by cardiology. He is counseled about the importance of smoking cessation. As the case with cardiology. No need for anticoagulation and the patient has been taken off Eliquis during his last admission. Consider percutaneous valve replacement on this patient and this is to be worked up and further evaluated by cardiology.
--- NOTE | 2021-03-20 15:53 | P.PN ---
Subjective 70-year-old pleasant male with known history of aortic stenosis chronic diastolic dysfunction was recently discharged from the hospital after he was treated for heart failure exacerbation comes in again with her shortness of breath and and the was on 15 L of oxygen yesterday presently back to 3 L. Patient is found to be in heart failure exacerbation and chest x-ray patient is also wheezing and exam patient is being treated for 6 COPD and CHF exacerbation patient is presently on IV Lasix and patient is also on systemic steroids at this time COVID-19 was negative patient doesn't have any evidence of pneumonia at this time BNP level is 10,700. Patient has severe aortic stenosis with peak gradient around 64. March 202020 Patient is saturating 100% on 2 L do not require any oxygen patient's sodium went down to 130 probably because of excessive diuresis patient will be switched to 60 mg twice a day of by mouth diuretics. Patient was using 40 mg twice a day before he ended up with acute exacerbation of CHF and patient probably can be discharged tomorrow to subacute rehabitation. Patient was switched to oral prednisone Constitutional: Denied any fatigue denied any fever. Cardio vascular: denied any chest pain, palpitations Gastrointestinal denied any nausea vomiting Pulmonary: Denied any shortness of breath cough Neurologic denied any new focal deficits All inpatient medications were reviewed and appropriate changes in these medications as dictated in the interval history and assessment and plan. PHYSICAL EXAMINATION: GENERAL: The patient is alert and oriented x3, not in any acute distress. Well developed, well nourished. HEENT: Pupils are round and equally reacting to light. EOMI. No scleral icterus. No conjunctival pallor. Normocephalic, atraumatic. No pharyngeal erythema. No thyromegaly. CARDIOVASCULAR: S1 and S2 present. No murmurs, rubs, or gallops. PULMONARY: Bibasilar crackles ABDOMEN: Soft, nontender, nondistended, normoactive bowel sounds. No palpable organomegaly. MUSCULOSKELETAL: No joint swelling or deformity. EXTREMITIES: No cyanosis, clubbing, or pedal edema. NEUROLOGICAL: Gross neurological examination did not reveal any focal deficits. SKIN: No rashes. Assessment and plan Chronic hypoxic and hypercapnic respiratory failure secondary to COPD as well as CHF exacerbation patient does have severe aortic stenosis which is contributing to his. Patient was weaned off BiPAP and patient is presently saturating well will not require any oxygen. -Congestive heart failure chronic diastolic dysfunction with acute exacerbation -Hypervolemic hyponatremia -Severe stenosis -COPD with acute exacerbation patient is presently on systemic steroids -Proximal atrial fibrillation presently in sinus rhythm continue with rate control medications -Anemia of chronic disease -Nicotine use -lactic acidosis secondary to hypoperfusion and CHF improved at this time -Elevated troponin secondary to heart failure exacerbation and hypoxia DVT prophylaxis: Lovenox Objective - Vital Signs Vital signs: Vital Signs Temp 97.8 F 03/20/21 15:20 Pulse 106 H 03/20/21 15:20 Resp 19 03/20/21 15:20 BP 100/61 03/20/21 15:20 Pulse Ox 92 L 03/20/21 15:20 Intake & Output 03/19/21 03/20/21 03/20/21 18:59 06:59 18:59 Intake Total 1080 118 Output Total 1600 Balance -520 118 Weight 74.843 kg 68.5 kg Intake: Oral 1080 118 Output: Urine 1600 Other: Voiding Method Urinal Urinal # Voids 500 # Bowel Movements 1 - Labs CBC & Chem 7: 03/19/21 11:37 03/20/21 07:21 Labs: Abnormal Lab Results - Last 24 Hours (Table) 03/19/21 03/19/21 03/20/21 Range/Units 17:56 21:01 05:30 Sodium (137-145) mmol/L Chloride (98-107) mmol/L BUN (9-20) mg/dL Glucose (74-99) mg/dL POC Glucose (mg/dL) 199 H (75-99) mg/dL Plasma Lactic Acid Ivan 4.2 H* 3.6 H* (0.7-2.0) mmol/L Calcium (8.4-10.2) mg/dL 03/20/21 03/20/21 03/20/21 Range/Units 07:21 07:24 11:56 Sodium 130 L (137-145) mmol/L Chloride 93 L (98-107) mmol/L BUN 26 H (9-20) mg/dL Glucose 134 H (74-99) mg/dL POC Glucose (mg/dL) 175 H 150 H (75-99) mg/dL Plasma Lactic Acid Ivan (0.7-2.0) mmol/L Calcium 8.0 L (8.4-10.2) mg/dL
[2021-03-20 17:05] LABS: Glucose,Whole Blood 228 mg/dL (75-99)
[2021-03-20] MEDS ORDERED: bisacodyL 10 MG SUPP RECTAL STA (17:45)
[2021-03-20] MEDS ORDERED: LACTULOSE 20 GM/30 ML CUP PO PRN (17:45)
[2021-03-20 20:16] LABS: Glucose,Whole Blood 149 mg/dL (75-99)
[2021-03-20] MEDS: PANTOPRAZOLE 40 MG TABLET PO SCH (21:50)
[2021-03-21 06:16] LABS: Glucose,Whole Blood 109 mg/dL (75-99)
[2021-03-21] MEDS: INSULIN ASPART (NovoLOG) 100 UNIT/ML VIAL SQ SCH ×3 (06:18→16:32)
[2021-03-21] MEDS: IPRATROPIUM-ALBUTEROL 3 ML NEB INHALATION SCH ×3 (08:16→15:22)
[2021-03-21] MEDS: METOPROLOL TARTRATE 25 MG TAB PO SCH ×2 (08:19→15:27)
[2021-03-21] MEDS: ASPIRIN 325 MG TAB PO SCH (08:19)
[2021-03-21] MEDS: DOCUSATE 100 MG CAP PO SCH ×2 (08:19→15:26)
[2021-03-21] MEDS: FUROSEMIDE 20 MG TAB PO SCH ×2 (08:19→15:27)
[2021-03-21] MEDS ORDERED: predniSONE 20 MG TAB PO SCH (09:00)
--- NOTE | 2021-03-21 10:49 | P.PN ---
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 Patient states he used to see Dr. Fatima about 5 years ago. Patient is admitted to the hospital secondary to SOB and CHF. Patient examined at the bedside. He denies chest pain or pressure. He does report SOB with exertion but states his breathing has improving since admission to the hospital. He remains on oral lasix. Vital signs are stable. PHYSICAL EXAM: VITAL SIGNS: Reviewed. GENERAL: Well-developed in no acute distress. NECK: Supple. No JVD or thyromegaly LUNGS: Respirations even and unlabored. Lungs diminished bilaterally HEART: Regular rate and rhythm. S1 and S2 heard. Systolic murmur. EXTREMITIES: Normal range of motion. No clubbing or cyanosis. Peripheral pulses intact. No lower extremity edema ASSESSMENT: Shortness of breath Acute on chronic diastolic congestive heart failure COPD Severe aortic stenosis, symptomatic Anemia, etiology unclear PLAN: Continue current cardiac medications No further inpatient recommendations from a cardiac standpoint Patient to follow up outpatient with Dr. Martin. Plan for outpatient IVIS and left heart cath Further recommendations pending patient course Nurse practitioner note has been reviewed by physician. Signing provider agrees with the documented findings, assessment, and plan of care. Objective - Vital Signs Vital signs: Vital Signs Temp 97.6 F 03/21/21 08:17 Pulse 98 03/21/21 08:17 Resp 22 03/21/21 08:17 BP 94/55 03/21/21 08:17 Pulse Ox 100 03/21/21 08:17 Intake & Output 03/20/21 03/21/21 03/21/21 18:59 06:59 18:59 Intake Total 118 260 Output Total 525 700 300 Balance -407 -700 -40 Weight 67 kg Intake: IV 260 .9@20 240 Invasive Line 1 10 Invasive Line 2 10 Oral 118 Output: Urine 525 700 300 Other: Voiding Method Urinal Urinal # Voids 2 0 1 # Bowel Movements 1 - Labs CBC & Chem 7: 03/19/21 11:37 03/20/21 07:21 Labs: Abnormal Lab Results - Last 24 Hours (Table) 03/20/21 03/20/21 03/20/21 Range/Units 11:56 17:04 20:15 POC Glucose (mg/dL) 150 H 228 H 149 H (75-99) mg/dL 03/21/21 Range/Units 06:14 POC Glucose (mg/dL) 109 H (75-99) mg/dL
[2021-03-21 11:39] LABS: Glucose,Whole Blood 196 mg/dL (75-99)
--- NOTE | 2021-03-21 14:03 | P.DS ---
Providers Date of admission: 03/18/21 22:03 Attending physician: Abelino Montoya Consults: 03/18/21 22:03 Consult Physician Routine Consulting Provider: Vi Keen Consult Reason/Comments: dyspnea, resp failure Do you want consulting provider notified?: Yes Consult Physician Routine Consulting Provider: Abraham Porter Consult Reason/Comments: chf, dyspnea Do you want consulting provider notified?: Yes Primary care physician: [facility] Hospital Course: 70-year-old pleasant male with known history of aortic stenosis chronic diastolic dysfunction was recently discharged from the hospital after he was treated for heart failure exacerbation comes in again with her shortness of breath and and the was on 15 L of oxygen yesterday presently back to 3 L. Patient is found to be in heart failure exacerbation and chest x-ray patient is also wheezing and exam patient is being treated for 6 COPD and CHF exacerbation patient is presently on IV Lasix and patient is also on systemic steroids at this time COVID-19 was negative patient doesn't have any evidence of pneumonia at this time BNP level is 10,700. Patient has severe aortic stenosis with peak gradient around 64. March 202020 Patient is saturating 100% on 2 L do not require any oxygen patient's sodium went down to 130 probably because of excessive diuresis patient will be switched to 60 mg twice a day of by mouth diuretics. Patient was using 40 mg twice a day before he ended up with acute exacerbation of CHF and patient probably can be discharged tomorrow to subacute rehabitation. Patient was switched to oral prednisone 03/21/2021 Patient respiratory status improved. Patient will be discharged today and 60 mg twice a day of oral Lasix patient had heart failure exacerbation on 40 mg twice a day. Patient is bit hyponatremic due to excessive diuresis with this is expected to improve as we are switching him to oral Lasix and repeat basic metabolic profile will be obtained in about 2 days PHYSICAL EXAMINATION: GENERAL: The patient is alert and oriented x3, not in any acute distress. Well developed, well nourished. HEENT: Pupils are round and equally reacting to light. EOMI. No scleral icterus. No conjunctival pallor. Normocephalic, atraumatic. No pharyngeal erythema. No thyromegaly. CARDIOVASCULAR: S1 and S2 present. No murmurs, rubs, or gallops. PULMONARY: Bibasilar crackles ABDOMEN: Soft, nontender, nondistended, normoactive bowel sounds. No palpable organomegaly. MUSCULOSKELETAL: No joint swelling or deformity. EXTREMITIES: No cyanosis, clubbing, or pedal edema. NEUROLOGICAL: Gross neurological examination did not reveal any focal deficits. SKIN: No rashes. Assessment and plan Chronic hypoxic and hypercapnic respiratory failure secondary to COPD as well as CHF exacerbation patient does have severe aortic stenosis which is contributing to his. Patient was weaned off BiPAP and patient is presently saturating well w -Congestive heart failure chronic diastolic dysfunction with acute exacerbation -Hypervolemic hyponatremia improved present hyponatremia secondary to excessive diuresis -Severe aortic stenosis -COPD with acute exacerbation patient is presently on systemic steroids -Proximal atrial fibrillation presently in sinus rhythm continue with rate control medications -Anemia of chronic disease -Nicotine use -lactic acidosis secondary to hypoperfusion and CHF improved at this time -Elevated troponin secondary to heart failure exacerbation and hypoxia Patient Condition at Discharge: Critical Plan - Discharge Summary Discharge Rx Participant: No New Discharge Prescriptions: New Furosemide [Lasix] 60 mg PO BID@0900,1600 tab INSULIN LISPRO (humaLOG) [humaLOG] 1 injection SQ DIRECTED #10 ml predniSONE 10 mg PO DAILY #30 tab Continue Tiotropium 2.5 Mcg/Puff [Spiriva Respimat 2.5 Mcg] 2 puff INHALATION RT-DAILY Ipratropium-Albuterol Nebulize [Duoneb 0.5 mg-3 mg/3 ml Soln] 3 ml INHALATION RT-Q2H PRN ml PRN Reason: Shortness Of Breath Or Wheezing Metoprolol Tartrate [Lopressor] 25 mg PO BID@0800,1600 Docusate [Colace] 100 mg PO BID@0800,1600 Omeprazole 20 mg PO HS Ipratropium-Albuterol Nebulize [Duoneb 0.5 mg-3 mg/3 ml Soln] 3 ml INHALATION RT-Q4H Discontinued Furosemide [Lasix] 40 mg PO BID@0800,1600 Discharge Medication List Docusate [Colace] 100 mg PO BID@0800,1600 03/09/21 [History] Metoprolol Tartrate [Lopressor] 25 mg PO BID@0800,1600 03/09/21 [History] Tiotropium 2.5 Mcg/Puff [Spiriva Respimat 2.5 Mcg] 2 puff INHALATION RT-DAILY 03/09/21 [History] Ipratropium-Albuterol Nebulize [Duoneb 0.5 mg-3 mg/3 ml Soln] 3 ml INHALATION RT-Q2H PRN ml 03/16/21 [Rx] Ipratropium-Albuterol Nebulize [Duoneb 0.5 mg-3 mg/3 ml Soln] 3 ml INHALATION RT-Q4H 03/18/21 [History] Omeprazole 20 mg PO HS 03/18/21 [History] Furosemide [Lasix] 60 mg PO BID@0900,1600 tab 03/21/21 [Rx] INSULIN LISPRO (humaLOG) [humaLOG] 1 injection SQ DIRECTED #10 ml 03/21/21 [Rx] predniSONE 10 mg PO DAILY #30 tab 03/21/21 [Rx] Follow up Appointment(s)/Referral(s): Medardo Martin MD [STAFF PHYSICIAN] - 1 Week [facility] [Primary Care Provider] - 3 Days Patient Instructions/Handouts: Heart Failure (DC), COPD (Chronic Obstructive Pulmonary Disease) (DC) Activity/Diet/Wound Care/Special Instructions: Outpatient IVIS and heart cath. Will be scheduled at your follow up appointment with your vice president talent management Basic metabolic profile in 2 days Discharge Disposition: TRANSFER TO SNF/ECF
[2021-03-21 14:52] VITALS: BMI 21.8
[2021-03-21 15:25] VITALS: BP 154/81; PULSE 83; RESP 22; TEMP 97.7
[2021-03-21 16:17] LABS: Glucose,Whole Blood 224 mg/dL (75-99)
== END 2021-03-21 16:51 | DRG 291 ==
LOC: EC 18:12 → 2SICU 22:03 → 3SCARD 03-19 11:51
PROVIDERS: ADMIT Hospitalist; ATTEND Hospitalist
PROC: 5A09357 Assistance with Respiratory Ventilation, Less than 24 Consecutive Hours, Continuous Positive Airway Pressure (ICD-10-PCS; principal; 2021-03-18)
DX: I50.33 Acute on chronic diastolic (congestive) heart failure (principal); J96.21 Acute and chronic respiratory failure with hypoxia; J96.12 Chronic respiratory failure with hypercapnia; E87.2 Acidosis; E87.1 Hypo-osmolality and hyponatremia; J44.1 Chronic obstructive pulmonary disease with (acute) exacerbation; D63.8 Anemia in other chronic diseases classified elsewhere; I48.0 Paroxysmal atrial fibrillation; Z20.822 Contact with and (suspected) exposure to COVID-19; I35.0 Nonrheumatic aortic (valve) stenosis; R77.8 Other specified abnormalities of plasma proteins; Z79.899 Other long term (current) drug therapy; Z87.891 Personal history of nicotine dependence; Z71.6 Tobacco abuse counseling; Z87.19 Personal history of other diseases of the digestive system; Z98.890 Other specified postprocedural states; Z71.3 Dietary counseling and surveillance; Z83.3 Family history of diabetes mellitus; Z80.1 Family history of malignant neoplasm of trachea, bronchus and lung
CPT/HCPCS: 36415; 71045; 80048; 80053; 83605; 83735; 83880; 84484; 85025; 85610; 85730; 87635; 93005; 94640; 94660; 94760; 96374; 96375; 99291